=== PATIENT | male | born 1975 | race Caucasian/White ===

== ENCOUNTER 2020-06-02 08:54 | Outpatient (CLI) | payer BC, SELFPAY ==
--- NOTE | 2020-06-02 09:42 | ECG_ITS ---
[facility] Test Date: 2020-06-02 Pat Name: Neil Bah Department: Room: Gender: Male Rapid Transit Operator: : 1975 Requested By: Manish Bennett Order Number: [id number] Obie MD: Ivet Nickerson M.D. Interpretive Statements NAME OF STUDY: EXERCISE SESTAMIBI STRESS TEST EXERCISE DATA: The patient was exercised by Bryn protocol. Baseline heart rate was 81 beats per minute. Baseline blood pressure was 123/80 millimeters of mercury. Target heart rate was 175 beats per minute. Maximum heart rate achieved was 187, which was 106 % of the target heart rate. Maximum blood pressure was 159/80 millimeters of mercury. Total exercise time was 12 minutes. Maximum METs achieved was 13.5, maximum VO2 was 47.3. The reason for ending the test was maximum effort achieved. The patient complained of during the stress test, which then resolved at the end of the test. ELECTROCARDIOGRAM: BASELINE: Sinus rhythm, normal axis, interventricular conduction delay otherwise no significant ST-T changes at the baseline noted. EXERCISE: At the peak exercise level, no significant ST-T changes suggestive of ischemia noted. RECOVERY: During the recovery period, heart rate dropped appropriately. No significant ST-T changes in the recovery suggestive of ischemia noted. CONCLUSION: 1. Exercise capacity good. 2. Heart rate response was appropriate. 3. Blood pressure response was appropriate. 4. Symptoms not suggestive of ischemia. 5. Electrocardiogram portion of the stress test was not suggestive of ischemia. 6 Electronically Signed On 06-02-2020 18:59:46 CDT by Ivet Nickerson M.D. [id number]
--- NOTE | 2020-06-02 09:43 | NMCV_ITS ---
NM char perf SPECT r/s* [id number] Neil Bah Age: 45 Gender: M : 1975 Exam Date: 06/02/2020 10:42 Ordering Phys: Manish Cobb DO Technologist: PAUL Baum Exam Location: [facility] Indications: DYSPNEA ON EXERTION STRESS TEST Please see separate stress test report in [facility] for full findings IMAGE PROTOCOL Rest/Stress 1 Exercise Day Radiopharmaceutical Dose (mCi) Administration Site Administered by Rest: Tc-99m 10.9 IV PAUL Baum Sestamibi Stress:Tc-99m 32.6 IV PAUL Odonnell Sestamibi Rest: 02-Jun-2020 60 Discovery 630 Stress: 02-Jun-2020 15 Discovery 630 Radiopharmaceutical was injected at 86 % maximum heart rate. Images obtained in supine and prone position. SPECT RESULTS Technical Quality: Excellent Raw Data Analysis: Normal Image Corrections: No attenuation or motion correction applied Summed Stress Score: 2 Summed Rest Score: 6 Summed Difference Score: 0 PERFUSION FINDINGS Medium-sized area of fixed perfusion defect noted in basal distal inferior and inferoseptal wall suggestive of old myocardial infarction versus scarring. No mer-infarct ischemia noted. FUNCTIONAL RESULTS (calculated via Gated SPECT) Stress Image LV EF (%): 75 Stress EDV (mL):97 TID: 0.67 Stress ESV (mL):24 Rest Image LV EF (%): 75 FUNCTIONAL FINDINGS: There is normal left ventricular systolic function. IMPRESSIONS Medium-sized area for myocardial infarction versus scarring noted in the basal to distal inferior inferoseptal wall without mer-infarct ischemia. This study is negative for ischemia. EKG segment will be documented separately Ivet Nickerson MD (Electronically Signed) Final Date: 02 June 2020 12:37 S
[2020-06-02 09:51] VITALS: BMI 29.9
--- NOTE | 2020-06-02 10:11 | USCV_ITS ---
Neil Bah Age: 45 Gender: M : 1975 Exam Date: 06/02/2020 10:24 Ordering Phys: Manish Cobb DO Technologist: Jeniffer Mendez Exam Location: [facility] [place] Indication: DYSPNEA ON EXERTION BP: / HR: 56 Rhythm: Sinus Technical Quality: Adequate MEASUREMENTS (Male / Female) Normal Values 2D ECHO LV Diastolic Diameter PLAX 3.2 cm 4.2 - 5.9 / 3.9 - 5.3 cm LV Systolic Diameter PLAX 2.1 cm LV Chamber Size 4.2 cm IVS Diastolic Thickness 1.3 cm 0.6 - 1.0 / 0.6 - 0.9 cm IVS Systolic Thickness 1.6 cm LVPW Diastolic Thickness 2.5 cm 0.6 - 1.0 / 0.6 - 0.9 cm LVPW Systolic Thickness 2.2 cm RV Chamber Size 3.5 cm LVOT Diameter 2.1 cm LV Ejection Fraction 2D Teich 64.5 % LV Ejection Fraction MOD 2C 74.4 % LV Ejection Fraction 2C AL 75.6 % LA Diameter 3.5 cm LA Width 4.3 cm LA Height 3.7 cm RA Width 3.0 cm RA Height 3.8 cm Aorta at Sinotubular Diameter 3.2 cm M-MODE LV Diastolic Diameter MM 5.3 cm 4.2 - 5.9 / 3.9 - 5.3 cm LV Systolic Diameter MM 3.1 cm LV Ejection Fraction MM Teich 70.2 % IVS Diastolic Thickness MM 0.9 cm 0.6 - 1.0 / 0.6 - 0.9 cm IVS Systolic Thickness MM 1.3 cm LVPW Diastolic Thickness MM 0.9 cm 0.6 - 1.0 / 0.6 - 0.9 cm LVPW Systolic Thickness MM 1.3 cm Aortic Annulus Diameter 4.4 cm LA Ao Ratio MM 0.8 MV E Point Septal Separation 0.6 cm DOPPLER AV Peak Velocity 83.0 cm/s LVOT Peak Velocity 68.0 cm/s AV Area Cont Eq vti 3.1 cm squared AV Area Cont Eq pk 2.8 cm squared MV Area PHT 9.6 cm squared Mitral E to A Ratio 1.1 MV E' Velocity 12.0 cm/s Mitral E to MV E' Ratio 4.9 Mitral E to LV E' Lateral Ratio 5.3 Mitral E to LV E' Septal Ratio 4.5 TR Peak Velocity 145.0 cm/s TR Peak Gradient 8.4 mmHg TV Peak E Velocity 70.0 cm/s Right Atrial Pressure 3.0 mmHg Pulmonary Artery Systolic Pressu 11.4 mmHg PV Peak Velocity 64.0 cm/s RV Acceleration Time 0.2 s RV Ejection Time 0.4 s RV AcT/ET 0.5 FINDINGS Left Ventricle Normal left ventricular cavity size. Normal left ventricular systolic function. No regional wall motion abnormalities. Left ventricular ejection fraction is estimated at 60 %. Grade II/IV diastolic dysfunction, moderately elevated filling pressures. Right Ventricle The right ventricle is normal in size and function. Right Atrium The right atrium is normal in size. Left Atrium The left atrium is normal in size. Mitral Valve Structurally normal mitral valve without significant stenosis or prolapse. There is no mitral regurgitation. Aortic Valve Moderate aortic valve calcification. No aortic valve stenosis. Trace aortic valve regurgitation. Tricuspid Valve Structurally normal tricuspid valve without significant stenosis or regurgitation. Pulmonary artery systolic pressure is normal. Pulmonic Valve Structurally normal pulmonic valve without significant stenosis. There is no pulmonic regurgitation. Pericardium Normal pericardium without effusion. Aorta Normal ascending aorta dimension. CONCLUSIONS 1-Normal left ventricular cavity size. Normal left ventricular systolic function. No regional wall motion abnormalities. Left ventricular ejection fraction is estimated at 60 %. Grade II/IV diastolic dysfunction, moderately elevated filling pressures. 2-Moderate aortic valve calcification. No aortic valve stenosis. Trace aortic valve regurgitation. 3-Structurally normal mitral valve without significant stenosis or prolapse. There is no mitral regurgitation. 4-Structurally normal tricuspid valve without significant stenosis or regurgitation. Pulmonary artery systolic pressure is normal. 5-There is no pericardial effusion. 6-Right atrial pressure is around 5 mm of mercury. 7-There are no prior echocardiogram studies to compare. Ivet Nickerson MD (Electronically Signed) Final Date: 02 June 2020 12:47 S
[2020-06-02 12:13] VITALS: BP 146/84; PULSE 85
== END 2020-06-02 08:55 | disposition home or self-care (01) ==
PROVIDERS: PCP Internal Medicine; Visit Provider Internal Medicine
DX: R06.09 Other forms of dyspnea; I35.1 Nonrheumatic aortic (valve) insufficiency
CPT/HCPCS: 78452; 93017; 93306; A9500

== ENCOUNTER 2020-10-04 11:10 | Outpatient (CLI) | payer BC, SELFPAY ==
--- NOTE | 2020-10-04 11:17 | XR_ITS ---
WS: [id number] CHEST 2 VIEWS HISTORY: Shortness of breath COMPARISON: 11/29/2014. Lungs: Clear with no abnormality. No pleural effusion or pneumothorax. Cardiac size: Normal. Mediastinum/Aorta: Normal mediastinum. Bones: Normal. XR/XR chest 2V* [id number] IMPRESSION: Normal chest.
== END 2020-10-04 11:11 | disposition home or self-care (01) ==
PROVIDERS: PCP Internal Medicine; Visit Provider Internal Medicine Critical Care Medicine
DX: R06.02 Shortness of breath (principal)
CPT/HCPCS: 71046

== ENCOUNTER → 2020-10-10 10:21 | Outpatient (BNVA) | payer BC, SELFPAY | PROVIDERS: PCP Internal Medicine; Visit Provider Internal Medicine Critical Care Medicine | DX: Z11.52 Encounter for screening for COVID-19 (principal); I35.9 Nonrheumatic aortic valve disorder, unspecified | CPT/HCPCS: 87635 ==

== ENCOUNTER 2020-10-13 09:09 | Outpatient (CLI) | payer BC, SELFPAY ==
--- NOTE | 2020-10-13 14:19 | PFTS_ITS ---
Date of Study:10/13/20 Date of Dictation: MECHANICS: Forced vital capacity (FVC) is normal. Forced expiratory volume in one second (FEV1) is normal. FEV1/FVC is normal. FLOW VOLUME LOOP: Normal. LUNG VOLUMES: Total lung capacity (TLC) is normal. Residual volume (RV) is reduced. DIFFUSING CAPACITY FOR CARBON MONOXIDE: Normal. INTERPRETATION: The pulmonary function tests are normal. There is isolated reduction of residual volume likely secondary to an increase in expiratory reserve volume. Gas exchange (DLCO) is normal. MTDD
== END 2020-10-13 09:10 | disposition home or self-care (01) ==
PROVIDERS: PCP Internal Medicine; Visit Provider Internal Medicine Critical Care Medicine
DX: R06.02 Shortness of breath (principal)
CPT/HCPCS: 94010; 94726; 94729

== ENCOUNTER 2021-02-17 10:01 | Outpatient (CLI) | payer BC, SELFPAY ==
--- NOTE | 2021-02-18 17:59 | ONC CON_ITS ---
Dr. Estrada New Patient Note Patient: Neil Bah Unit #: [id number]: 1975 Dicatated By: Manish Estrada M.D.Date of Visit: February 17, 2021 Onc MED New Patient/Consult Referring Physician: Dr. MUNA ROSS M.D. Chief Complaint: Rectal cancer. 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 He has rheumatoid arthritis and last year he was found to have evidence of grade 2 diastolic dysfunction in the course of undergoing evaluation for exertional dyspnea. He had recently presented with rectal bleeding. It first started in November of this year. He underwent colonoscopy by Dr. Marino. I do not have that report available, it apparently showed a benign rectal polyp in a more dominant rectal polyp/tumor, confirmed on biopsy to be adenomatous with focal high-grade dysplasia. He was referred to Dr. Ross in [place]. His flexible sigmoidoscopy on 02/02/2021 showed a malignant appearing tumor on the first rectal fold spanning 40 to 50% of the circumference of the rectal wall. There was central ulceration and a crater ring noted. Ultrasound was suggestive of T3 disease and also noted was a possible extra rectal round hypodense lymph node suggesting possible lymph node involvement. Biopsy of the mass showed well differentiated adenocarcinoma. MMR studies were in progress and are not yet reported. His staging CT scans of the chest, abdomen, and pelvis on 02/02/2021 showed a 6 mm and 3 mm right upper lobe pulmonary nodules and a 5 mm left lower lobe pulmonary nodule, nonspecific, but metastatic disease was not excluded. The liver showed a 2.0 cm hypodense nodule with ill-defined margins in the anterior superior right lobe. The appearance was suspicious for metastasis. Multiple tiny hypodensities in the left and right lobes were too small to characterize. Also noted was a a 1.1 cm fluid density cyst in the left lobe. There was suspected 4.1 cm inhomogeneous mass in the posterior rectum. There were no enlarged lymph nodes identified. He is seen for further management. He has still been feeling good generally. He has good energy and he has normal activity. ECOG score is 0. His appetite comes and goes. His weight is down about 13 pounds. He does not have fever or night sweats. He does report having shortness of breath with activity. He underwent evaluation for that last year, and he was found to have evidence of grade 2 diastolic dysfunction. He has not had chest pain or other cardiac symptoms. He has had no GI complaints other than the rectal bleeding. Bladder function has been okay. He has rheumatoid arthritis which mainly affects his knees and ankles. It is generally well controlled with the Xeljanz. He has just occasional headache. He has no focal neurologic symptoms. Past Medical History: His medical history includes nxiety, depression, grade 2 diastolic dysfunction, and rheumatoid arthritis. Past Surgical History: His surgical/procedural history includes right shoulder tendon repair and tympanoplasty. Medications: buPROPion HCl ER (XL) 1 Tablet (of 300 mg) Tablet SR 24 HR Oral daily, predniSONE 1 Tablet (of 10 mg) Oral PRN, Xeljanz XR 1 Tablet (of 11 mg) Tablet SR 24 HR Oral daily Allergies: Calamine Medicated Social History: Mr. Bah is . He is a non-smoker. He does not drink alcohol. Family History: Father of pancreatic cancer at age 67. Mother still living at age 76. She has had treatment for colonic polyps and 2 of his 3 siblings have also been treated for colonic polyps. His paternal grandmother of colon cancer in his paternal grandfather had mesothelioma. His maternal grandmother is a colon cancer survivor. He has 2 children, twin daughters who are now age 17. Review Of Symptoms: Constitutional - His energy is good and he has normal activity. Appetite comes and goes. His weight is down about 13 pounds. He does not have fever or night sweats. ECOG score is 0, Eyes - No change in vision, ENMT - No hearing loss or tinnitus. No sinus congestion/drainage. No mouth sores. No sore throat or difficulty swallowing, Hematologic/Lymphatic - No abnormal bruising or bleeding, Respiratory - He has shortness of breath with activity. No cough. No pleuritic pain or hemoptysis, Cardiovascular - No angina pain. No palpitations, Gastrointestinal - No nausea or vomiting. No heartburn or acid reflux. No diarrhea or constipation. He has been having rectal bleeding, Genitourinary (M) - No dysuria or hematuria. No urinary frequency. No urgency or incontinence, Musculoskeletal - He has rheumatoid arthritis for which she is on treatment with Xeljanz. His most significant pain is in his knees and ankles, Integumentary - No skin rash or other skin changes, Neurologic - No headache or dizziness. No numbness or tingling. No other focal neurologic symptoms, Psychiatric - No anxiety. He does have a little depression. No insomnia. Vital Signs: Performed on February 17, 2021 10:27: 0, 36.67 (HIGH), 2.11 sq.m, 66 in, 97 %, 86 /min, 18 /min, 127/82 mm(hg), 98.2 F (LOW), and 227.2 lbs (HIGH). Physical Examination: Constitutional - He appears to be in good general health, Eyes - Sclerae nonicteric. Conjunctivae clear, ENMT - No lesions noted in the oral cavity, Neck - No mass or thyromegaly, Hematologic/Lymphatic - No cervical, clavicular, or axillary adenopathy, Respiratory - Lungs are clear with good air movement bilaterally, Cardiovascular - Heart rhythm is regular. There is no murmur, gallop, or rub noted, Abdomen - Soft and non-tender. Liver and spleen are not enlarged. There is no abdominal mass or ascites noted and there is no inguinal adenopathy, Back/Spine - No spine or CVA tenderness noted, Extremities - No edema. Pedal pulses are palpable bilaterally, Integumentary - No rashes. No suspicious skin lesions noted, Neurologic - No focal neurologic deficits noted. Problem List: 1. Well differentiated adenocarcinoma of the rectum. Staging is incomplete. Ultrasound was suggestive of T3, N1 disease. His staging CT scans showed a possible metastatic lesion in the right lobe of the liver. Additional lesions involving both lobes of the liver were too small to characterize and several small pulmonary nodules are also too small to characterize. 2. Rheumatoid arthritis. 3. Grade 2 diastolic dysfunction. 4. Anxiety/depression. Problems Addressed with this Encounter and Plan: 1. Patient with well differentiated adenocarcinoma of the rectum. Staging is incomplete. Ultrasound was suggestive of T3, N1 disease. His staging CT scans showed a possible metastatic lesion in the right lobe of the liver. Additional lesions involving both lobes of the liver were too small to characterize and several small pulmonary nodules were also too small to characterize. The findings on the imaging studies and the pathology results were reviewed with the patient. We discussed the clinic complications. He has rectal adenocarcinoma which is likely to be at least stage III and possibly stage IV. He does need additional staging. At a minimum I would recommend MRI of the liver and MRI of the pelvis. In any case, it is likely that he will be appropriate for total neoadjuvant therapy. However, if the liver lesion is suspicious for a single site of metastatic involvement, we will have to decide whether to biopsy prior to starting treatment or address it at the time of his surgery. I will contact Dr. Ross to discuss this so that we can agree on an overall plan of management. He also is going to require placement of a Port-A-Cath venous access device for the chemotherapy. 2. He has a significant family history for colonic polyps and a positive family history for colon cancer. The results of his MMR studies have not been been reported. He will have genetic screening as indicated. Signed By: Manish Estrada M.D. <<Signature on File>>
== END 2021-02-17 10:02 | disposition home or self-care (01) ==
LOC: ONCMED 10:02
PROVIDERS: PCP Internal Medicine; Visit Provider Internal Medicine Medical Oncology
DX: C20 Malignant neoplasm of rectum (principal); C78.7 Secondary malignant neoplasm of liver and intrahepatic bile duct; C78.01 Secondary malignant neoplasm of right lung; C78.02 Secondary malignant neoplasm of left lung; M06.9 Rheumatoid arthritis, unspecified; F41.9 Anxiety disorder, unspecified; F32.9 Major depressive disorder, single episode, unspecified; Z79.899 Other long term (current) drug therapy; Z92.21 Personal history of antineoplastic chemotherapy
CPT/HCPCS: 99205

== ENCOUNTER 2021-03-28 05:38 | Outpatient (RCR) | payer BC, SELFPAY ==
[2021-02-28 09:42] LABS: Basophils % 0.5 %; Eosinophils % 0.5 %; Hematocrit 48.7 % (42.0-52.0); Hemoglobin 16.7 g/dL (11.7-16.6); Lymphocytes # 1.3 10^3/uL (0.8-4.8); Lymphocytes % 31.8 %; Mean Corpuscular HGB Conc 34.3 g/dL (30.0-36.0); Mean Corpuscular Hemoglobin 28.2 pg (28.0-34.0); Mean Corpuscular Volume 82.1 fL (80-94); Mean Platelet Volume 9.2 fL (7.4-10.4); Monocytes # 0.3 10^3/uL (0.2-0.9); Monocytes % 7.5 %; Neutrophils # 2.38 10^3/uL (1.8-7.7); Neutrophils % 59.4 %; Nucleated Red Blood Cells % 0 %; Platelet Count 206 10^3/cmm (130-400); Red Blood Count 5.93 10^6/uL (4.1-5.3); Red Cell Distribution Width 12.3 % (12.1-15.1)
[2021-02-28 10:16] LABS: Carcinoembryonic Antigen 4.7 ng/mL (0.0-4.7)
[2021-02-28 10:27] LABS: Alanine Aminotransferase 9 U/L (0-41); Albumin Level 4.5 g/dL (3.5-5.2); Alkaline Phosphatase 79 IU/L (40-130); Anion Gap 13.4 (5-19); Aspartate Amino Transferase 12 U/L (0-40); Blood Urea Nitrogen 14 mg/dL (6-20); Calcium 8.8 mg/dL (8.5-10.5); Carbon Dioxide 27 mmol/L (22-29); Chloride 106 mmol/L (98-107); Globulin 2.2 g/dL (1.3-4.6); Glomerular Filtration Rate 91.3 mL/min (90-130); Glucose 89 mg/dL (65-115); Osmolality Calculated 294 mOsm/kg (285-295); Potassium 4.4 mmol/L (3.5-5.1); Sodium 142 mmol/L (136-145); Total Bilirubin 0.7 mg/dL (0.15-1.2); Total Protein 6.7 g/dL (6.6-8.7)
[2021-02-28] MEDS: palonosetron 0.25 mg/5 mL SDV IVP (11:22)
[2021-02-28] MEDS: dextrose 5% 250 ML 75 ML IV (11:22)
[2021-03-07 12:21] LABS: Basophils % 0.5 %; Eosinophils # 0.1 10^3/uL (0.0-0.8); Eosinophils % 1.3 %; Hematocrit 46.5 % (42.0-52.0); Hemoglobin 16.2 g/dL (11.7-16.6); Lymphocytes # 1.1 10^3/uL (0.8-4.8); Lymphocytes % 29.3 %; Mean Corpuscular HGB Conc 34.8 g/dL (30.0-36.0); Mean Corpuscular Hemoglobin 28.2 pg (28.0-34.0); Mean Platelet Volume 8.8 fL (7.4-10.4); Monocytes # 0.3 10^3/uL (0.2-0.9); Monocytes % 8.8 %; Neutrophils # 2.21 10^3/uL (1.8-7.7); Nucleated Red Blood Cells % 0 %; Platelet Count 222 10^3/cmm (130-400); Red Blood Count 5.74 10^6/uL (4.1-5.3); Red Cell Distribution Width 11.9 % (12.1-15.1); White Blood Count 3.8 10^3/uL (4.0-10.0)
[2021-03-07 12:52] LABS: Alanine Aminotransferase < 5 U/L (0-41); Albumin Level 4.2 g/dL (3.5-5.2); Alkaline Phosphatase 78 IU/L (40-130); Anion Gap 12.2 (5-19); Aspartate Amino Transferase 12 U/L (0-40); Blood Urea Nitrogen 9 mg/dL (6-20); Calcium 8.7 mg/dL (8.5-10.5); Carbon Dioxide 27 mmol/L (22-29); Chloride 104 mmol/L (98-107); Globulin 2.6 g/dL (1.3-4.6); Glomerular Filtration Rate 80.8 mL/min (90-130); Glucose 88 mg/dL (65-115); Osmolality Calculated 286 mOsm/kg (285-295); Potassium 4.2 mmol/L (3.5-5.1); Sodium 139 mmol/L (136-145); Total Bilirubin 0.4 mg/dL (0.15-1.2); Total Protein 6.8 g/dL (6.6-8.7)
[2021-03-14 08:38] LABS: Basophils % 0.7 %; Eosinophils # 0.1 10^3/uL (0.0-0.8); Eosinophils % 1.8 %; Hematocrit 44.2 % (42.0-52.0); Hemoglobin 15.1 g/dL (11.7-16.6); Lymphocytes # 1.1 10^3/uL (0.8-4.8); Lymphocytes % 26.1 %; Mean Corpuscular HGB Conc 34.2 g/dL (30.0-36.0); Mean Corpuscular Hemoglobin 27.7 pg (28.0-34.0); Mean Corpuscular Volume 81.1 fL (80-94); Monocytes # 0.5 10^3/uL (0.2-0.9); Neutrophils # 2.62 10^3/uL (1.8-7.7); Neutrophils % 60.2 %; Nucleated Red Blood Cells % 0 %; Platelet Count 185 10^3/cmm (130-400); Red Blood Count 5.45 10^6/uL (4.1-5.3); Red Cell Distribution Width 12.7 % (12.1-15.1); White Blood Count 4.4 10^3/uL (4.0-10.0)
[2021-03-14 09:08] LABS: Alanine Aminotransferase 14 U/L (0-41); Alkaline Phosphatase 75 IU/L (40-130); Anion Gap 10.1 (5-19); Aspartate Amino Transferase 12 U/L (0-40); Blood Urea Nitrogen 15 mg/dL (6-20); Calcium 8.3 mg/dL (8.5-10.5); Carbon Dioxide 28 mmol/L (22-29); Chloride 105 mmol/L (98-107); Globulin 2.2 g/dL (1.3-4.6); Glomerular Filtration Rate 65.5 mL/min (90-130); Glucose 94 mg/dL (65-115); Osmolality Calculated 289 mOsm/kg (285-295); Potassium 4.1 mmol/L (3.5-5.1); Sodium 139 mmol/L (136-145); Total Bilirubin 0.4 mg/dL (0.15-1.2); Total Protein 6.2 g/dL (6.6-8.7)
[2021-03-14] MEDS: dextrose 5% 250 ML 75 ML IV (10:19)
[2021-03-14] MEDS: palonosetron 0.25 mg/5 mL SDV IVP (10:19)
[2021-03-21 11:09] LABS: Basophils % 0.6 %; Eosinophils % 1.2 %; Hematocrit 45.7 % (42.0-52.0); Hemoglobin 15.8 g/dL (11.7-16.6); Lymphocytes # 1.3 10^3/uL (0.8-4.8); Lymphocytes % 37.6 %; Mean Corpuscular HGB Conc 34.6 g/dL (30.0-36.0); Mean Corpuscular Hemoglobin 28.2 pg (28.0-34.0); Mean Corpuscular Volume 81.5 fL (80-94); Mean Platelet Volume 9.3 fL (7.4-10.4); Monocytes # 0.3 10^3/uL (0.2-0.9); Monocytes % 9.8 %; Neutrophils # 1.69 10^3/uL (1.8-7.7); Neutrophils % 49.9 %; Nucleated Red Blood Cells % 0 %; Platelet Count 266 10^3/cmm (130-400); Red Blood Count 5.61 10^6/uL (4.1-5.3); Red Cell Distribution Width 12.4 % (12.1-15.1); White Blood Count 3.4 10^3/uL (4.0-10.0)
[2021-03-21 11:30] LABS: Alanine Aminotransferase 14 U/L (0-41); Albumin Level 4.2 g/dL (3.5-5.2); Alkaline Phosphatase 77 IU/L (40-130); Anion Gap 12.1 (5-19); Aspartate Amino Transferase 15 U/L (0-40); Blood Urea Nitrogen 16 mg/dL (6-20); Calcium 8.5 mg/dL (8.5-10.5); Carbon Dioxide 29 mmol/L (22-29); Chloride 105 mmol/L (98-107); Globulin 2.2 g/dL (1.3-4.6); Glomerular Filtration Rate 72.4 mL/min (90-130); Glucose 77 mg/dL (65-115); Osmolality Calculated 294 mOsm/kg (285-295); Potassium 4.1 mmol/L (3.5-5.1); Sodium 142 mmol/L (136-145); Total Bilirubin 0.5 mg/dL (0.15-1.2); Total Protein 6.4 g/dL (6.6-8.7)
[2021-03-28 09:05] LABS: Basophils % 0.6 %; Eosinophils # 0.1 10^3/uL (0.0-0.8); Hematocrit 46.3 % (42.0-52.0); Hemoglobin 15.6 g/dL (11.7-16.6); Lymphocytes # 1.3 10^3/uL (0.8-4.8); Lymphocytes % 26.2 %; Mean Corpuscular HGB Conc 33.7 g/dL (30.0-36.0); Mean Corpuscular Hemoglobin 27.4 pg (28.0-34.0); Mean Corpuscular Volume 81.4 fL (80-94); Mean Platelet Volume 8.9 fL (7.4-10.4); Monocytes # 0.4 10^3/uL (0.2-0.9); Monocytes % 7.6 %; Neutrophils # 3.29 10^3/uL (1.8-7.7); Neutrophils % 64.2 %; Nucleated Red Blood Cells % 0 %; Platelet Count 152 10^3/cmm (130-400); Red Blood Count 5.69 10^6/uL (4.1-5.3); Red Cell Distribution Width 13.2 % (12.1-15.1); White Blood Count 5.1 10^3/uL (4.0-10.0)
[2021-03-28 09:12] LABS: Alanine Aminotransferase 14 U/L (0-41); Alkaline Phosphatase 90 IU/L (40-130); Anion Gap 14.4 (5-19); Aspartate Amino Transferase 14 U/L (0-40); Blood Urea Nitrogen 12 mg/dL (6-20); Calcium 8.6 mg/dL (8.5-10.5); Carbon Dioxide 26 mmol/L (22-29); Chloride 106 mmol/L (98-107); Globulin 2.3 g/dL (1.3-4.6); Glomerular Filtration Rate 65.5 mL/min (90-130); Glucose 90 mg/dL (65-115); Osmolality Calculated 293 mOsm/kg (285-295); Potassium 4.4 mmol/L (3.5-5.1); Sodium 142 mmol/L (136-145); Total Bilirubin 0.6 mg/dL (0.15-1.2); Total Protein 6.3 g/dL (6.6-8.7)
[2021-03-28] MEDS: dextrose 5% 250 ML 75 ML IV (11:15)
[2021-03-28] MEDS: ondansetron 2 mg/ML SDV 2 mL 8 MG IVP (11:15)
--- NOTE | 2021-03-28 13:58 | ONC FU_ITS ---
[facility] Patient Note Patient: Neil Bah Unit #: [id number]: 1975 Dictated By: Chepe MoonDate of Visit: Mar 07, 2021 Onc MED Follow-Up/Prog Note Chief Complaint: Rectal cancer. History of Present Illness: Mr. 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 He has rheumatoid arthritis and last year he was found to have evidence of grade 2 diastolic dysfunction in the course of undergoing evaluation for exertional dyspnea. He had recently presented with rectal bleeding. It first started in November 2020. He underwent colonoscopy by Dr. Marino. It apparently showed a benign rectal polyp in a more dominant rectal polyp/tumor, confirmed on biopsy to be adenomatous with focal high-grade dysplasia. He was referred to Dr. Ross in [place]. His flexible sigmoidoscopy on 02/02/2021 showed a malignant appearing tumor on the first rectal fold spanning 40 to 50% of the circumference of the rectal wall. There was central ulceration and a crater ring noted. Ultrasound was suggestive of T3 disease and also noted was a possible extra rectal round hypodense lymph node suggesting possible lymph node involvement. Biopsy of the mass showed well differentiated adenocarcinoma. MMR studies were in progress and are not yet reported. His staging CT scans of the chest, abdomen, and pelvis on 02/02/2021 showed a 6 mm and 3 mm right upper lobe pulmonary nodules and a 5 mm left lower lobe pulmonary nodule, nonspecific, but metastatic disease was not excluded. The liver showed a 2.0 cm hypodense nodule with ill-defined margins in the anterior superior right lobe. The appearance was suspicious for metastasis. Multiple tiny hypodensities in the left and right lobes were too small to characterize. Also noted was a a 1.1 cm fluid density cyst in the left lobe. There was suspected 4.1 cm inhomogeneous mass in the posterior rectum. There were no enlarged lymph nodes identified. He was seen by Dr Estrada on for further management on February 17, 2021. Mr Bah had a right internal jugular port placed by Dr. Ross on December 25, 2020. MRI of the liver and pelvis was also requested and those results are not available at this visit. His current plan of care will be 6-8 treatments with FOLFOX then chemoradiation and then referral back to Dr. Ross for surgery. His MMR studies are still pending. Mr. Bah began his first cycle of FOLFOX on February 28, 2021. He is here today for day 8 follow-up. He states overall he is doing well. He did have a little cold-induced neuropathy around his mouth and fingertips but that has resolved. He states he did have emesis x1 on Saturday but none since then. He denies any fever or chills. He denies mouth sores, sore throat or difficulty swallowing. He has had no trouble eating and not his appetite has improved post chemo. He denies any new pain. He denies shortness of breath orthopnea. He denies any cough or hemoptysis. He states that his bowels have been normal so far. He had a little loose stool but nothing that he was worried about and that has resolved on its own as well. He denies any lower extremity edema or leg cramps. His ECOG is 0. Past Medical History: Anxiety Depression Grade 2 diastolic dysfunction Rheumatoid arthritis Past Surgical History: Right shoulder tendon repair Tympanoplasty Right internal jugular port placement???Dr. Ross/[facility] in 2020 Allergies: Calamine Medicated Medications: buPROPion HCl ER (XL) 1 Tablet (of 300 mg) Tablet SR 24 HR Oral daily predniSONE 1 Tablet (of 10 mg) Oral PRN Xeljanz XR 1 Tablet (of 11 mg) Tablet SR 24 HR Oral daily Family History: Father of pancreatic cancer at age 67. Mother still living at age 76. She has had treatment for colonic polyps and 2 of his 3 siblings have also been treated for colonic polyps. His paternal grandmother of colon cancer in his paternal grandfather had mesothelioma. His maternal grandmother is a colon cancer survivor. He has 2 children, twin daughters who are now age 17. Social History: Mr. Bah is . Mr. Bah has never smoked. He has no history of drinking. He is . He is a non-smoker. He does not drink alcohol. Review Of Symptoms: <See Above> Vital Signs: Performed on Mar 07, 2021 13:33 Height - 66.00 in Weight - 225 lbs (LOW) BSA - 2.10 sq.m BMI - 36.32 (HIGH) Temperature - 98.1 F (LOW) Pulse - 89 /min Respiration - 18 /min BP - 127/79 mm(hg) O2 Sat - 99 % Pain - 0 Fatigue - 0,0 - Fully active, able to carry on all predisease activities without restrictions. (ECOG) Physical Examination: Constitutional Alert, oriented, no acute distress. Skin pink, warm and dry. Head Normocephalic; atraumatic. Eyes Conjunctivae and sclerae are clear and without icterus. Pupils are reactive and equal. Neck Supple without masses or thyromegaly. No jugular venous distension. Hematologic/Lymphatic No petechiae or purpura. No tender or palpable lymph nodes in the cervical or supraclavicular areas. Respiratory Lungs are clear to auscultation without rhonchi or wheezing. Cardiovascular Regular rate and rhythm of heart without murmurs,clicks, gallops or rubs. Chest Chest is symmetric without chest wall deformities. Right chest wall port placement site is unremarkable. Back/Spine Non-tender to palpation. Extremities No visible deformities, no cyanosis, clubbing or edema. Musculoskeletal No tenderness or swelling, normal range of motion without obvious weakness. Integumentary No rashes or lesions. Neurologic No sensory or motor deficits, normal cerebellar function, normal gait. Psychiatric Alert and oriented times three. Coherent speech. Verbalizes understanding of our discussions today. Test performed on Feb 28, 2021 08:55 CEA 4.7 ng/mL Impression: 1. Well differentiated adenocarcinoma of the rectum. Staging is incomplete. Ultrasound was suggestive of T3, N1 disease. His staging CT scans showed a possible metastatic lesion in the right lobe of the liver. Additional lesions involving both lobes of the liver were too small to characterize and several small pulmonary nodules are also too small to characterize. 2. Rheumatoid arthritis. 3. Grade 2 diastolic dysfunction. 4. Anxiety/depression. Plan/Problems Addressed at this Visit: 1. Well differentiated adenocarcinoma of the rectum. Staging is incomplete. Ultrasound was suggestive of T3, N1 disease. His staging CT scans showed a possible metastatic lesion in the right lobe of the liver. Additional lesions involving both lobes of the liver were too small to characterize and several small pulmonary nodules were also too small to characterize. The findings on the imaging studies and the pathology results were reviewed with the patient per Dr Estraad. He has rectal adenocarcinoma which is likely to be at least stage III and possibly stage IV. He does need additional staging. Dr Estrada did recommend MRI of the liver and MRI of the pelvis and this was to be obtained per Dr Ross's office, those results are pending, He did have a port placed per Dr Ross on 02/24/2021. The current plan of care is total neoadjuvant therapy-6-8 cycles of FOLFOX, followed by chemo/radiation then possibly surgery. He began his first cycle of FOLFOX on February 28, 2021. He has tolerated it well thus far. A. Proceed with cycle 1 this is day 8. He is recovering well. B. Today's labs reviewed in detail discussed with Mr. Bah and a copy was given to him. WBC 3.8, hemoglobin 16.2, platelets 222,000, ANC is 2210. Potassium 4.2 random glucose 88 creatinine 1.0 and his LFTs are normal. C. We will plan to see him back in 1 week with CBC CMP for follow-up for consideration of cycle 2-day 1 FOLFOX. D. Mr. Bah was encouraged to contact us in the interim should questions or problems arise. 2. He has a significant family history for colonic polyps and a positive family history for colon cancer. The results of his MMR studies have not been been reported. He will have genetic screening as indicated. 3. Right internal jugular Port-A-Cath placement Dr. Ross February 24, 2021. A. He will require port flushes with access for port maintenance. Total time spent with Mr. Bah's care today regarding his review of his records, plan of care, side effect identification and management, lab review and post visit documentation was 50 minutes. Signed By: Chepe Moon-NAY, AOLONNIEP Manish Estrada MD <<Signature on File>>
--- NOTE | 2021-04-02 18:08 | ONC FU_ITS ---
[facility] Patient Note Patient: Neil Bah Unit #: [id number]: 1975 Dictated By: Chepe MoonDate of Visit: Mar 14, 2021 Onc MED Follow-Up/Prog Note Chief Complaint: Rectal cancer. History of Present Illness: Mr. 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 He has rheumatoid arthritis and last year he was found to have evidence of grade 2 diastolic dysfunction in the course of undergoing evaluation for exertional dyspnea. He had recently presented with rectal bleeding. It first started in November 2020. He underwent colonoscopy by Dr. Marino. It apparently showed a benign rectal polyp in a more dominant rectal polyp/tumor, confirmed on biopsy to be adenomatous with focal high-grade dysplasia. He was referred to Dr. Ross in [place]. His flexible sigmoidoscopy on 02/02/2021 showed a malignant appearing tumor on the first rectal fold spanning 40 to 50% of the circumference of the rectal wall. There was central ulceration and a crater ring noted. Ultrasound was suggestive of T3 disease and also noted was a possible extra rectal round hypodense lymph node suggesting possible lymph node involvement. Biopsy of the mass showed well differentiated adenocarcinoma. MMR studies were in progress and are not yet reported. His staging CT scans of the chest, abdomen, and pelvis on 02/02/2021 showed a 6 mm and 3 mm right upper lobe pulmonary nodules and a 5 mm left lower lobe pulmonary nodule, nonspecific, but metastatic disease was not excluded. The liver showed a 2.0 cm hypodense nodule with ill-defined margins in the anterior superior right lobe. The appearance was suspicious for metastasis. Multiple tiny hypodensities in the left and right lobes were too small to characterize. Also noted was a a 1.1 cm fluid density cyst in the left lobe. There was suspected 4.1 cm inhomogeneous mass in the posterior rectum. There were no enlarged lymph nodes identified. He was seen by Dr Estrada on for further management on February 17, 2021. Mr Bah had a right internal jugular port placed by Dr. Ross on December 25, 2020. MRI of the liver and pelvis was also requested and those results are not available at this visit. His current plan of care will be 6-8 treatments with FOLFOX then chemoradiation and then referral back to Dr. Ross for surgery. His MMR studies are still pending. Mr. Bah began his first cycle of FOLFOX on February 28, 2021. Mr Bah is here today for followup. He is due for cycle 2-day 1 FOLFOX. He states that he continues to do well overall. He did have a little cold-induced neuropathy around his mouth and fingertips with cycle 1 but states that that has resolved. He did have emesis 1 time on Saturday after his treatment but none since then. He remains very active. He did note that his height was incorrect on his flowsheet and that was corrected today to 75 inches. He states he has not had any mouth sores, sore throat or difficulty swallowing. He denies any fever or chills. He has had no further emesis. He has had no nausea. His cold-induced neuropathy has completely resolved. He denies any diarrhea or constipation. He has had no skin changes. His ECOG is 0. Past Medical History: Anxiety Depression Grade 2 diastolic dysfunction Rheumatoid arthritis Past Surgical History: Right shoulder tendon repair Tympanoplasty Right internal jugular port placement???Dr. Ross/[facility] in 2020 Allergies: Calamine Medicated Medications: buPROPion HCl ER (XL) 1 Tablet (of 300 mg) Tablet SR 24 HR Oral daily predniSONE 1 Tablet (of 10 mg) Oral PRN Xeljanz XR 1 Tablet (of 11 mg) Tablet SR 24 HR Oral daily Family History: Father of pancreatic cancer at age 67. Mother still living at age 76. She has had treatment for colonic polyps and 2 of his 3 siblings have also been treated for colonic polyps. His paternal grandmother of colon cancer in his paternal grandfather had mesothelioma. His maternal grandmother is a colon cancer survivor. He has 2 children, twin daughters who are now age 17. Social History: Mr. Bah is . Mr. Bah has never smoked. He has no history of drinking. He is . He is a non-smoker. He does not drink alcohol. Review Of Symptoms: <See Above> Vital Signs: Performed on Mar 14, 2021 09:27 Height - 75 in (HIGH) Weight - 229.8 lbs (HIGH) BSA - 2.33 sq.m BMI - 28.72 Temperature - 97.7 F (LOW) Pulse - 78 /min Respiration - 18 /min BP - 124/74 mm(hg) O2 Sat - 96 % Pain - 0 Fatigue - 0,0 - Fully active, able to carry on all predisease activities without restrictions. (ECOG) Physical Examination: Constitutional Alert, oriented, no acute distress. Skin pink, warm and dry. Head Normocephalic; atraumatic. Eyes Conjunctivae and sclerae are clear and without icterus. Pupils are reactive and equal. Neck Supple without masses or thyromegaly. No jugular venous distension. Hematologic/Lymphatic No petechiae or purpura. No tender or palpable lymph nodes in the cervical or supraclavicular areas. Respiratory Lungs are clear to auscultation without rhonchi or wheezing. Cardiovascular Regular rate and rhythm of heart without murmurs,clicks, gallops or rubs. Chest Chest is symmetric without chest wall deformities. Right chest wall port placement site is unremarkable. Back/Spine Non-tender to palpation. Extremities No visible deformities, no cyanosis, clubbing or edema. Musculoskeletal No tenderness or swelling, normal range of motion without obvious weakness. Integumentary No rashes or lesions. Neurologic No sensory or motor deficits, normal cerebellar function, normal gait. Psychiatric Alert and oriented times three. Coherent speech. Verbalizes understanding of our discussions today. Impression: 1. Well differentiated adenocarcinoma of the rectum. Staging is incomplete. Ultrasound was suggestive of T3, N1 disease. His staging CT scans showed a possible metastatic lesion in the right lobe of the liver. Additional lesions involving both lobes of the liver were too small to characterize and several small pulmonary nodules are also too small to characterize. 2. Rheumatoid arthritis. 3. Grade 2 diastolic dysfunction. 4. Anxiety/depression. Plan/Problems Addressed at this Visit: 1. Well differentiated adenocarcinoma of the rectum. Staging is incomplete. Ultrasound was suggestive of T3, N1 disease. His staging CT scans showed a possible metastatic lesion in the right lobe of the liver. Additional lesions involving both lobes of the liver were too small to characterize and several small pulmonary nodules were also too small to characterize. The findings on the imaging studies and the pathology results were reviewed with the patient per Dr Estrada. He has rectal adenocarcinoma which is likely to be at least stage III and possibly stage IV. He does need additional staging. Dr Estrada did recommend MRI of the liver and MRI of the pelvis and this was to be obtained per Dr Ross's office, those results are pending, He did have a port placed per Dr Ross on 02/24/2021. The current plan of care is total neoadjuvant therapy-6-8 cycles of FOLFOX, followed by chemo/radiation then possibly surgery. He began his first cycle of FOLFOX on February 28, 2021. He has tolerated it well thus far. A. Proceed with cycle 2 this is day 1. His doses will be changed today due to a high discrepancy and his initial dosing and today's. His height was corrected today from 66 inches to 75 inches. B. Today's labs reviewed in detail discussed with Mr. Bah and a copy was given to him. WBC 4.4, hemoglobin 15.1, platelets 185,000, ANC is 2620. Potassium 4.1 random glucose 94 creatinine 1.2 and his LFTs are normal. His weight is stable at 229.8. C. We will plan to see him back in 2 weeks with CBC CMP for follow-up for consideration of cycle 3-day 1 FOLFOX. He will have interim labs for follow-up of his first couple cycles of chemotherapy D. Mr. Bah was encouraged to contact us in the interim should questions or problems arise. 2. He has a significant family history for colonic polyps and a positive family history for colon cancer. The results of his MMR studies have not been been reported. He will have genetic screening as indicated. 3. Right internal jugular Port-A-Cath placement Dr. Ross February 24, 2021. A. He will require port flushes with access for port maintenance. Signed By: Chepe Moon-NAY, AOP Manish Estrada MD <<Signature on File>>
--- NOTE | 2021-04-04 14:51 | ONC FU_ITS ---
[facility] Patient Note Patient: Neil Bah Unit #: [id number]: 1975 Dictated By: Chepe MoonDate of Visit: Mar 28, 2021 Onc MED Follow-Up/Prog Note Chief Complaint: Rectal cancer. History of Present Illness: Mr. 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 He has rheumatoid arthritis and in 2019, he was found to have evidence of grade 2 diastolic dysfunction in the course of undergoing evaluation for exertional dyspnea. He had recently presented with rectal bleeding. It first started in November 2020. He underwent colonoscopy by Dr. Marino. It apparently showed a benign rectal polyp in a more dominant rectal polyp/tumor, confirmed on biopsy to be adenomatous with focal high-grade dysplasia. He was referred to Dr. Ross in [place]. His flexible sigmoidoscopy on 02/02/2021 showed a malignant appearing tumor on the first rectal fold spanning 40 to 50% of the circumference of the rectal wall. There was central ulceration and a crater ring noted. Ultrasound was suggestive of T3 disease and also noted was a possible extra rectal round hypodense lymph node suggesting possible lymph node involvement. Biopsy of the mass showed well differentiated adenocarcinoma. MMR studies were in progress and are not yet reported. His staging CT scans of the chest, abdomen, and pelvis on 02/02/2021 showed a 6 mm and 3 mm right upper lobe pulmonary nodules and a 5 mm left lower lobe pulmonary nodule, nonspecific, but metastatic disease was not excluded. The liver showed a 2.0 cm hypodense nodule with ill-defined margins in the anterior superior right lobe. The appearance was suspicious for metastasis. Multiple tiny hypodensities in the left and right lobes were too small to characterize. Also noted was a a 1.1 cm fluid density cyst in the left lobe. There was suspected 4.1 cm inhomogeneous mass in the posterior rectum. There were no enlarged lymph nodes identified. He was seen by Dr Estrada on for further management on February 17, 2021. Mr Bah had a right internal jugular port placed by Dr. Ross on December 25, 2020. MRI of the liver and pelvis was also requested and those results are not available at this visit. His current plan of care will be 6-8 treatments with FOLFOX then chemoradiation and then referral back to Dr. Ross for surgery. His MMR studies are still pending. Mr. Bah began his first cycle of FOLFOX on February 28, 2021. He had cycle 2 FOLFOX on March 14, 2021. His dose was adjusted due to a height discrepancy. The new dose was actually increased compared to cycle 1. Mr Bah is here today for followup. He is due for cycle 3-day 1 FOLFOX. He states that he continues to do well overall. He did have a little more cold-induced neuropathy around his mouth and fingertips with cycle 2 but states that that has completely resolved. He states that he did have a headache after his treatment. He states he was not sure if it was due to a slightly increased dose or the antiemetics or just situational. The headache began Saturday night and lasted through morning after treatment. He also had 2 days of diarrhea the week following his chemotherapy. He states it may have been something that he ate. He states it was nothing excessive and was managed with [id number] Imodium as needed. He has had some leg cramps off and on for the last couple of days. He states he may not been drinking enough water. He is still working and remains active. He works at the [employer]. He denies any fever or chills. He denies any mouth sores, sore throat or difficulty swallowing. He has had no skin rashes or skin changes. He denies any peeling or lesions on the skin. He states his diet is relatively good. He has had some slight taste changes but nothing that has affected his ability to eat at this point. He denies any pain. He denies any persistent neuropathy symptoms. 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 He did tolerate the dose adjusted doses (with slightly higher dosing due to a height discrepancy in his chart) with cycle 2 well. His ECOG is 0. Past Medical History: Anxiety Depression Grade 2 diastolic dysfunction Rheumatoid arthritis Past Surgical History: Right shoulder tendon repair Tympanoplasty Right internal jugular port placement???Dr. Ross/[facility] in 2020 Allergies: Calamine Medicated Medications: buPROPion HCl ER (XL) 1 Tablet (of 300 mg) Tablet SR 24 HR Oral daily predniSONE 1 Tablet (of 10 mg) Oral PRN Xeljanz XR 1 Tablet (of 11 mg) Tablet SR 24 HR Oral daily Family History: Father of pancreatic cancer at age 67. Mother still living at age 76. She has had treatment for colonic polyps and 2 of his 3 siblings have also been treated for colonic polyps. His paternal grandmother of colon cancer in his paternal grandfather had mesothelioma. His maternal grandmother is a colon cancer survivor. He has 2 children, twin daughters who are now age 17. Social History: Mr. Bah is . Mr. Bah has never smoked. He has no history of drinking. He is . He is a non-smoker. He does not drink alcohol. Review Of Symptoms: <See Above> Vital Signs: Performed on Mar 28, 2021 10:36 Height - 75.00 in Weight - 233.2 lbs (HIGH) BSA - 2.34 sq.m BMI - 29.15 Temperature - 97.1 F (LOW) Pulse - 94 /min Respiration - 18 /min BP - 118/70 mm(hg) O2 Sat - 96 % Pain - 0 Fatigue - 0,0 - Fully active, able to carry on all predisease activities without restrictions. (ECOG) Physical Examination: Constitutional Alert, oriented, no acute distress. Skin pink, warm and dry. Head Normocephalic; atraumatic. Eyes Conjunctivae and sclerae are clear and without icterus. Pupils are reactive and equal. Neck Supple without masses or thyromegaly. No jugular venous distension. Hematologic/Lymphatic No petechiae or purpura. No tender or palpable lymph nodes in the cervical or supraclavicular areas. Respiratory Lungs are clear to auscultation without rhonchi or wheezing. Cardiovascular Regular rate and rhythm of heart without murmurs,clicks, gallops or rubs. Chest Chest is symmetric without chest wall deformities. Right chest wall port placement site is unremarkable. Back/Spine Non-tender to palpation. Extremities No visible deformities, no cyanosis, clubbing or edema. Musculoskeletal No tenderness or swelling, normal range of motion without obvious weakness. Integumentary No rashes or lesions. Neurologic No sensory or motor deficits, normal cerebellar function, normal gait. Psychiatric Alert and oriented times three. Coherent speech. Verbalizes understanding of our discussions today. Laboratory:Test performed on Mar 28, 2021 08:35 Sodium 142 mmol/L Potassium 4.4 mmol/L Chloride 106 mmol/L CO2 26 mmol/L Anion Gap 14.4 BUN 12 mg/dL Creatinine 1.2 mg/dL Cr Clearance (Est) 114.6100 mL/min eGFR 65.5 mL/min Glucose 90 mg/dL Osmolality - Calculated 293 mOsm/kg Calcium 8.6 mg/dL Protein, Total 6.3 g/dL Albumin 4.0 g/dL Globulin 2.3 g/dL Bilirubin, Total 0.6 mg/dL ALT (SGPT) 14 U/L AST (SGOT) 14 U/L Alkaline Phosphatase 90 IU/L WBC 5.1 10 3/uL RBC 5.69 10 6/uL HGB 15.6 g/dL HCT 46.3 % MCV 81.4 fL MCH 27.4 pg MCHC 33.7 g/dL RDW 13.2 % Platelet Count 152 10 3/cmm MPV 8.9 fL Neutrophils 3.29 10 3/uL Lymphocytes 1.3 10 3/uL Monocytes 0.4 10 3/uL Eosinophils 0.1 10 3/uL Basophils 0.0 10 3/uL Neutrophil % 64.2 % Lymphocyte % 26.2 % Monocyte % 7.6 % Eosinophil % 1.0 % Basophils % 0.6 % NRBC % 0 % Test performed on Feb 28, 2021 08:55 CEA 4.7 ng/mL Impression: 1. Well differentiated adenocarcinoma of the rectum. Staging is incomplete. Ultrasound was suggestive of T3, N1 disease. His staging CT scans showed a possible metastatic lesion in the right lobe of the liver. Additional lesions involving both lobes of the liver were too small to characterize and several small pulmonary nodules are also too small to characterize. 2. Rheumatoid arthritis. 3. Grade 2 diastolic dysfunction. 4. Anxiety/depression. Plan/Problems Addressed at this Visit: 1. Well differentiated adenocarcinoma of the rectum. Staging is incomplete. Ultrasound was suggestive of T3, N1 disease. His staging CT scans showed a possible metastatic lesion in the right lobe of the liver. Additional lesions involving both lobes of the liver were too small to characterize and several small pulmonary nodules were also too small to characterize. The findings on the imaging studies and the pathology results were reviewed with the patient per Dr Estrada. He has rectal adenocarcinoma which is likely to be at least stage III and possibly stage IV. He does need additional staging. Dr Estrada did recommend MRI of the liver and MRI of the pelvis and this was to be obtained per Dr Ross's office, those results are pending, He did have a port placed per Dr Ross on 02/24/2021. The current plan of care is total neoadjuvant therapy-6-8 cycles of FOLFOX, followed by chemo/radiation then restaging imaging with MRI pelvis/liver and then possibly surgery. He began his first cycle of FOLFOX on February 28, 2021. He has tolerated it well thus far. A. Proceed with cycle 3 this is day 1. His doses will be remain the same as cycle 2. B. Today's labs reviewed in detail discussed with Mr. Bah and a copy was given to him. WBC 5.1, hemoglobin 15.6, platelets 152,000, ANC is 3290. Potassium 4.4 random glucose is 90 creatinine 1.2 albumin is 4.0 LFTs are normal. His weight today is 233.2. C. I recommended that he try 1 L normal saline hydration with his pump removal of the pump later this week. 2. He has a significant family history for colonic polyps and a positive family history for colon cancer. He will have genetic screening as indicated. A. Mismatch repair analysis (IHC) from [facility] lab collected on 02/02/2021 reports: MLH1 M1 intact expression MSH2 [id number] intact expression MSH6 SP93 intact expression PMS2 A16-4 intact expression 3. Right internal jugular Port-A-Cath placement Dr. Ross February 24, 2021. A. He will require port flushes with access for port maintenance. 4. Followup Plan A. We will plan to see him back in 2 weeks with CBC CMP for follow-up for consideration of cycle 4-day 1 FOLFOX. B. Mr. Bah was encouraged to contact us in the interim should questions or problems arise. Signed By: Chepe Moon-, CNP Manish Estrada MD <<Signature on File>>
== END 2021-03-29 23:59 | disposition home or self-care (01) ==
LOC: ONCMED 05:38
PROVIDERS: Internal Medicine Medical Oncology; PCP Internal Medicine; Visit Provider Nurse Practitioner
DX: Z51.11 Encounter for antineoplastic chemotherapy (principal); C20 Malignant neoplasm of rectum; C78.7 Secondary malignant neoplasm of liver and intrahepatic bile duct; F41.9 Anxiety disorder, unspecified; F32.9 Major depressive disorder, single episode, unspecified; M06.9 Rheumatoid arthritis, unspecified; I51.89 Other ill-defined heart diseases; Z79.899 Other long term (current) drug therapy
CPT/HCPCS: 36415; 36591; 80053; 82378; 85025; 96367; 96368; 96375; 96413; 96415; 96416; 96523; 99214; 99215; J0640; J1100; J2405; J2469; J9190; J9263

== ENCOUNTER 2021-04-26 05:47 | Outpatient (RCR) | payer BC, SELFPAY ==
[2021-03-30] MEDS: sodium chloride 0.9% 1,000 ML 999 ML IV (14:03)
[2021-04-11 08:26] LABS: Basophils % 0.9 %; Eosinophils % 0.9 %; Hematocrit 44.2 % (42.0-52.0); Hemoglobin 15.1 g/dL (11.7-16.6); Lymphocytes # 1.3 10^3/uL (0.8-4.8); Lymphocytes % 28.9 %; Mean Corpuscular HGB Conc 34.2 g/dL (30.0-36.0); Mean Corpuscular Hemoglobin 27.4 pg (28.0-34.0); Mean Corpuscular Volume 80.1 fL (80-94); Mean Platelet Volume 8.8 fL (7.4-10.4); Monocytes # 0.4 10^3/uL (0.2-0.9); Monocytes % 7.8 %; Neutrophils # 2.81 10^3/uL (1.8-7.7); Neutrophils % 61.1 %; Nucleated Red Blood Cells % 0 %; Platelet Count 154 10^3/cmm (130-400); Red Blood Count 5.52 10^6/uL (4.1-5.3); White Blood Count 4.6 10^3/uL (4.0-10.0)
[2021-04-11 08:57] LABS: Carcinoembryonic Antigen 3.1 ng/mL (0.0-4.7)
[2021-04-11 09:08] LABS: Alanine Aminotransferase 28 U/L (0-41); Albumin Level 3.8 g/dL (3.5-5.2); Alkaline Phosphatase 106 IU/L (40-130); Aspartate Amino Transferase 28 U/L (0-40); Blood Urea Nitrogen 11 mg/dL (6-20); Calcium 8.8 mg/dL (8.5-10.5); Carbon Dioxide 28 mmol/L (22-29); Chloride 106 mmol/L (98-107); Globulin 2.6 g/dL (1.3-4.6); Glomerular Filtration Rate 65.5 mL/min (90-130); Glucose 82 mg/dL (65-115); Osmolality Calculated 290 mOsm/kg (285-295); Sodium 141 mmol/L (136-145); Total Bilirubin 0.5 mg/dL (0.15-1.2); Total Protein 6.4 g/dL (6.6-8.7)
[2021-04-11] MEDS: ondansetron 2 mg/ML SDV 2 mL 8 MG IV (09:55)
[2021-04-11] MEDS: dextrose 5% 250 ML 75 ML IV (09:57)
--- NOTE | 2021-04-11 10:48 | ONC FU_ITS ---
Dr. Estrada Patient Follow-Up Note Patient: Neil Bah Unit #: [id number]: 1975 Dicatated By: Manish Estrada M.D.Date of Visit:Apr 11, 2021 Onc Med Follow-up/Prog Note Chief Complaint: Rectal cancer. History of Present Illness: This is a 45-year-old man with well differentiated adenocarcinoma of the rectum, by clinical evaluation stage at least T3, N1, MSI stable. He has rheumatoid arthritis and last year he was found to have evidence of grade 2 diastolic dysfunction in the course of undergoing evaluation for exertional dyspnea. He had onset of rectal bleeding in November of this year. He underwent colonoscopy by Dr. Marino which apparently showed a benign rectal polyp and a more dominant rectal polyp/tumor, confirmed on biopsy to be adenomatous with focal high-grade dysplasia. He was referred to Dr. Ross in [place]. His flexible sigmoidoscopy on 02/02/2021 showed a malignant appearing tumor on the first rectal fold spanning 40 to 50% of the circumference of the rectal wall. There was central ulceration and a crater ring noted. Ultrasound was suggestive of T3 disease and also noted was a possible extra rectal round hypodense lymph node suggesting possible lymph node involvement. Biopsy of the mass showed well differentiated adenocarcinoma. Mismatch repair analysis by IHC showed intact expression of MMR proteins. His staging CT scans of the chest, abdomen, and pelvis on 02/02/2021 showed a 6 mm and 3 mm right upper lobe pulmonary nodules and a 5 mm left lower lobe pulmonary nodule, nonspecific, but metastatic disease was not excluded. The liver showed a 2.0 cm hypodense nodule with ill-defined margins in the anterior superior right lobe. The appearance was suspicious for metastasis. Multiple tiny hypodensities in the left and right lobes were too small to characterize. Also noted was a a 1.1 cm fluid density cyst in the left lobe. There was suspected 4.1 cm inhomogeneous mass in the posterior rectum. There were no enlarged lymph nodes identified. I had seen him initially on 02/17/2021. With his disease being at least stage III, he was recommended to proceed with total neoadjuvant therapy. His medical history is otherwise significant for rheumatoid arthritis, for which he has been on treatment with Xeljanz. During the course of evaluation for exertional dyspnea, he was found to have evidence of grade 2 diastolic dysfunction. He has had no other known cardiac disease. He also has anxiety/depression. He is a non-smoker. He has a positive family history for colonic polyps and for colon cancer. INTERIM HISTORY: He began cycle 1 of neoadjuvant chemotherapy with modified FOLFOX on 02/28/2021. He tolerated it well and he continued with cycle 2 on 03/14/2021 and with cycle 3 on 03/28/2021. He is seen for a scheduled visit. He is still feeling good generally, though he has been more tired following his last treatment. He is still working and he still has normal activity. ECOG score is 0. His appetite was down for a few days after treatment. He also noted a little more muscle tenseness and he noticed that his knees and ankles hurt more. He has not had fever or night sweats. He has not had soreness in the mouth or throat. He has no shortness of breath, cough, or chest pain. He has no GI/ complaints. Bowel function has been normal, and he has had no further bleeding. He does not complain of headache. He has been a little lightheaded at times. He had some numbness/tingling in his fingertips and also in his mouth with cold exposure. It lasted a little more than a week, but it has now resolved. Medications: buPROPion HCl ER (XL) 1 Tablet (of 300 mg) Tablet SR 24 HR Oral daily, predniSONE 1 Tablet (of 10 mg) Oral PRN, Xeljanz XR 1 Tablet (of 11 mg) Tablet SR 24 HR Oral daily Allergies: Calamine Medicated Vital Signs: Performed on Apr 11, 2021 09:53 Height - 75.00 in Weight - 229.6 lbs (LOW) BSA - 2.33 sq.m BMI - 28.70 Temperature - 97.0 F (LOW) Pulse - 82 /min Respiration - 18 /min BP - 131/81 mm(hg) O2 Sat - 98 % Pain - 0 Fatigue - 2 Physical Examination: Constitutional - He looks good generally, Eyes - Sclerae nonicteric. Conjunctivae clear, ENMT - No lesions noted in the oral cavity, Hematologic/Lymphatic - No cervical, clavicular, or axillary adenopathy, Respiratory - Lungs are clear with good air movement bilaterally, Cardiovascular - Heart rhythm is regular. There is no murmur, gallop, or rub noted, Abdomen - Soft. Liver and spleen are not enlarged. There is no abdominal mass or ascites noted and there is no inguinal adenopathy, Extremities - No edema, Neurologic - No focal neurologic deficits noted. Lab/Imaging: Test performed on Apr 11, 2021 08:09 Sodium 141 mmol/L Potassium 4.0 mmol/L Chloride 106 mmol/L CO2 28 mmol/L Anion Gap 11.0 BUN 11 mg/dL Creatinine 1.2 mg/dL Cr Clearance (Est) 114.6100 mL/min eGFR 65.5 mL/min Glucose 82 mg/dL Osmolality - Calculated 290 mOsm/kg Calcium 8.8 mg/dL Protein, Total 6.4 g/dL Albumin 3.8 g/dL Globulin 2.6 g/dL Bilirubin, Total 0.5 mg/dL ALT (SGPT) 28 U/L AST (SGOT) 28 U/L Alkaline Phosphatase 106 IU/L WBC 4.6 10 3/uL RBC 5.52 10 6/uL HGB 15.1 g/dL HCT 44.2 % MCV 80.1 fL MCH 27.4 pg MCHC 34.2 g/dL RDW 13.0 % Platelet Count 154 10 3/cmm MPV 8.8 fL Neutrophils 2.81 10 3/uL Lymphocytes 1.3 10 3/uL Monocytes 0.4 10 3/uL Eosinophils 0.0 10 3/uL Basophils 0.0 10 3/uL Neutrophil % 61.1 % Lymphocyte % 28.9 % Monocyte % 7.8 % Eosinophil % 0.9 % Basophils % 0.9 % NRBC % 0 % CEA 3.1 ng/mL Problem List: 1. Well differentiated adenocarcinoma of the rectum, by clinical evaluation stage at least T3, N1, MSI stable. 2. Rheumatoid arthritis. 3. Grade 2 diastolic dysfunction. 4. Anxiety/depression. Problems Addressed with this Encounter and Plan: Patient with well differentiated adenocarcinoma of the rectum. His mismatch repair analysis showed intact expression of mismatch repair proteins. By ultrasound his disease was stage at least T3, N1. His staging CT scans also showed a possible metastatic lesion in the right lobe of the liver. Additional lesions involving both lobes of the liver were too small to characterize and several small pulmonary nodules were also too small to characterize. With those findings he was recommended to undergo total neoadjuvant therapy. He has now completed 3 cycles of neoadjuvant chemotherapy with modified FOLFOX. Thus far he has tolerated it extremely well. Side effects have been limited to mild fatigue and mild neuropathy. Subjectively he does appear to be showing improvement since starting chemotherapy, and there has been some decline in his CEA level. He will continue now with cycle 4 of modified FOLFOX. The dosages remain the same. He returns in 2 weeks. Signed By: Manish Estrada M.D. <<Signature on File>>
[2021-04-24 09:34] LABS: Basophils % 0.5 %; Eosinophils % 0.8 %; Hematocrit 45.1 % (42.0-52.0); Hemoglobin 15.2 g/dL (11.7-16.6); Lymphocytes # 1.4 10^3/uL (0.8-4.8); Lymphocytes % 36.8 %; Mean Corpuscular HGB Conc 33.7 g/dL (30.0-36.0); Mean Corpuscular Hemoglobin 27.3 pg (28.0-34.0); Mean Platelet Volume 9.5 fL (7.4-10.4); Monocytes # 0.4 10^3/uL (0.2-0.9); Neutrophils # 1.96 10^3/uL (1.8-7.7); Neutrophils % 51.6 %; Nucleated Red Blood Cells % 0 %; Platelet Count 140 10^3/cmm (130-400); Red Blood Count 5.57 10^6/uL (4.1-5.3); Red Cell Distribution Width 14.1 % (12.1-15.1); White Blood Count 3.8 10^3/uL (4.0-10.0)
[2021-04-24 10:00] LABS: Alanine Aminotransferase 114 U/L (0-41); Alkaline Phosphatase 88 IU/L (40-130); Anion Gap 13.2 (5-19); Aspartate Amino Transferase 75 U/L (0-40); Blood Urea Nitrogen 14 mg/dL (6-20); Calcium 8.6 mg/dL (8.5-10.5); Carbon Dioxide 26 mmol/L (22-29); Chloride 105 mmol/L (98-107); Globulin 2.5 g/dL (1.3-4.6); Glomerular Filtration Rate 65.5 mL/min (90-130); Glucose 88 mg/dL (65-115); Osmolality Calculated 290 mOsm/kg (285-295); Potassium 4.2 mmol/L (3.5-5.1); Sodium 140 mmol/L (136-145); Total Bilirubin 0.5 mg/dL (0.15-1.2); Total Protein 6.5 g/dL (6.6-8.7)
[2021-04-24] MEDS: ondansetron 2 mg/ML SDV 2 mL 8 MG IVP (11:51)
[2021-04-24] MEDS: dextrose 5% 250 ML 75 ML IV (11:51)
--- NOTE | 2021-04-24 15:38 | ONC FU_ITS ---
Dr. Estrada Patient Follow-Up Note Patient: Neil Bah Unit #: [id number]: [id number] Dicatated By: Manish Estrada M.D.Date of Visit:Apr 24, 2021 Onc Med Follow-up/Prog Note Chief Complaint: Rectal cancer. History of Present Illness: This is a 45-year-old man with well differentiated adenocarcinoma of the rectum, by clinical evaluation stage at least T3, N1, MSI stable. He has rheumatoid arthritis and last year he was found to have evidence of grade 2 diastolic dysfunction in the course of undergoing evaluation for exertional dyspnea. He had onset of rectal bleeding in November of this year. He underwent colonoscopy by Dr. Marino which apparently showed a benign rectal polyp and a more dominant rectal polyp/tumor, confirmed on biopsy to be adenomatous with focal high-grade dysplasia. He was referred to Dr. Ross in [place]. His flexible sigmoidoscopy on 02/02/2021 showed a malignant appearing tumor on the first rectal fold spanning 40 to 50% of the circumference of the rectal wall. There was central ulceration and a crater ring noted. Ultrasound was suggestive of T3 disease and also noted was a possible extra rectal round hypodense lymph node suggesting possible lymph node involvement. Biopsy of the mass showed well differentiated adenocarcinoma. Mismatch repair analysis by IHC showed intact expression of MMR proteins. His staging CT scans of the chest, abdomen, and pelvis on 02/02/2021 showed a 6 mm and 3 mm right upper lobe pulmonary nodules and a 5 mm left lower lobe pulmonary nodule, nonspecific, but metastatic disease was not excluded. The liver showed a 2.0 cm hypodense nodule with ill-defined margins in the anterior superior right lobe. The appearance was suspicious for metastasis. Multiple tiny hypodensities in the left and right lobes were too small to characterize. Also noted was a a 1.1 cm fluid density cyst in the left lobe. There was suspected 4.1 cm inhomogeneous mass in the posterior rectum. There were no enlarged lymph nodes identified. I had seen him initially on 02/17/2021. With his disease being at least stage III, he was recommended to proceed with total neoadjuvant therapy. His medical history is otherwise significant for rheumatoid arthritis, for which he has been on treatment with Xeljanz. During the course of evaluation for exertional dyspnea, he was found to have evidence of grade 2 diastolic dysfunction. He has had no other known cardiac disease. He also has anxiety/depression. He is a non-smoker. He has a positive family history for colonic polyps and for colon cancer. INTERIM HISTORY: He began cycle 1 of neoadjuvant chemotherapy with modified FOLFOX on 02/28/2021. He tolerated it well and he continued with cycle 2 on 03/14/2021, with cycle 3 on 03/28/2021, and with cycle 4 on 04/11/2021. He is seen for a follow-up visit. He has been feeling pretty good generally. He does notice that he tires more easily, but he has normal activity. ECOG score is 0. His appetite is good. He has no fever or night sweats. He continues to have cold sensitivity for about a week or so after his treatment. With his last cycle he also developed some transient numbness in his left index finger. His mouth occasionally feels a little sore. He has no shortness of breath, cough, or chest pain. He has not had any nausea with the chemotherapy, and he has had no diarrhea. He has no complaints. He has had a little bit of back pain. He has had some migraine headaches. Medications: buPROPion HCl ER (XL) 1 Tablet (of 300 mg) Tablet SR 24 HR Oral daily, predniSONE 1 Tablet (of 10 mg) Oral PRN, Xeljanz XR 1 Tablet (of 11 mg) Tablet SR 24 HR Oral daily Allergies: Calamine Medicated Vital Signs: Performed on Apr 24, 2021 11:09 Height - 75.00 in Weight - 226.2 lbs (LOW) BSA - 2.31 sq.m BMI - 28.27 Temperature - 97.6 F (LOW) Pulse - 79 /min Respiration - 18 /min BP - 128/81 mm(hg) O2 Sat - 97 % Pain - 0 Physical Examination: Constitutional - He looks good generally, Eyes - Sclerae nonicteric. Conjunctivae clear, ENMT - No lesions noted in the oral cavity, Hematologic/Lymphatic - No cervical, clavicular, or axillary adenopathy, Respiratory - Lungs are clear with good air movement bilaterally, Cardiovascular - Heart rhythm is regular. There is no murmur, gallop, or rub noted, Abdomen - Soft. Liver and spleen are not enlarged. There is no abdominal mass or ascites noted and there is no inguinal adenopathy, Extremities - No edema, Neurologic - No focal neurologic deficits noted. Lab/Imaging: Test performed on Apr 24, 2021 09:05 Sodium 140 mmol/L Potassium 4.2 mmol/L Chloride 105 mmol/L CO2 26 mmol/L Anion Gap 13.2 BUN 14 mg/dL Creatinine 1.2 mg/dL Cr Clearance (Est) 114.6100 mL/min eGFR 65.5 mL/min Glucose 88 mg/dL Osmolality - Calculated 290 mOsm/kg Calcium 8.6 mg/dL Protein, Total 6.5 g/dL Albumin 4.0 g/dL Globulin 2.5 g/dL Bilirubin, Total 0.5 mg/dL ALT (SGPT) 114 U/L AST (SGOT) 75 U/L Alkaline Phosphatase 88 IU/L WBC 3.8 10 3/uL RBC 5.57 10 6/uL HGB 15.2 g/dL HCT 45.1 % MCV 81.0 fL MCH 27.3 pg MCHC 33.7 g/dL RDW 14.1 % Platelet Count 140 10 3/cmm MPV 9.5 fL Neutrophils 1.96 10 3/uL Lymphocytes 1.4 10 3/uL Monocytes 0.4 10 3/uL Eosinophils 0.0 10 3/uL Basophils 0.0 10 3/uL Neutrophil % 51.6 % Lymphocyte % 36.8 % Monocyte % 10.0 % Eosinophil % 0.8 % Basophils % 0.5 % NRBC % 0 % Problem List: 1. Well differentiated adenocarcinoma of the rectum, by clinical evaluation stage at least T3, N1, MSI stable. 2. Rheumatoid arthritis. 3. Grade 2 diastolic dysfunction. 4. Anxiety/depression. Problems Addressed with this Encounter and Plan: Patient with well differentiated adenocarcinoma of the rectum. His mismatch repair analysis showed intact expression of mismatch repair proteins. By ultrasound his disease was stage at least T3, N1. His staging CT scans also showed a possible metastatic lesion in the right lobe of the liver. Additional lesions involving both lobes of the liver were too small to characterize and several small pulmonary nodules were also too small to characterize. With those findings he was recommended to undergo total neoadjuvant therapy. He has now completed 4 cycles of neoadjuvant chemotherapy with modified FOLFOX. Thus far he has tolerated it extremely well. Side effects have been limited to mild fatigue and mild neuropathy. He will proceed now with cycle 5 of modified FOLFOX. The dosages remain the same. He returns in 2 weeks. Signed By: Manish Estrada M.D. <<Signature on File>>
== END 2021-04-29 23:59 | disposition home or self-care (01) ==
LOC: ONCMED 05:47
PROVIDERS: PCP Internal Medicine; Visit Provider Internal Medicine Medical Oncology
DX: Z51.11 Encounter for antineoplastic chemotherapy (principal); C20 Malignant neoplasm of rectum; M06.9 Rheumatoid arthritis, unspecified; I51.89 Other ill-defined heart diseases; F41.9 Anxiety disorder, unspecified; F32.9 Major depressive disorder, single episode, unspecified; Z79.899 Other long term (current) drug therapy
CPT/HCPCS: 36415; 80053; 82378; 85025; 96360; 96367; 96368; 96375; 96413; 96415; 96416; 96523; 99214; J0640; J1100; J2405; J7030; J9190; J9263

== ENCOUNTER 2021-05-26 05:38 | Outpatient (RCR) | payer BC, SELFPAY ==
[2021-05-09 08:33] LABS: Basophils % 0.8 %; Eosinophils % 1.1 %; Hematocrit 43.4 % (42.0-52.0); Hemoglobin 14.5 g/dL (11.7-16.6); Lymphocytes % 27.6 %; Mean Corpuscular HGB Conc 33.4 g/dL (30.0-36.0); Mean Corpuscular Hemoglobin 27.6 pg (28.0-34.0); Mean Corpuscular Volume 82.5 fL (80-94); Mean Platelet Volume 9.5 fL (7.4-10.4); Monocytes # 0.4 10^3/uL (0.2-0.9); Monocytes % 9.8 %; Neutrophils # 2.27 10^3/uL (1.8-7.7); Neutrophils % 60.2 %; Nucleated Red Blood Cells % 0 %; Platelet Count 97 10^3/cmm (130-400); Red Blood Count 5.26 10^6/uL (4.1-5.3); Red Cell Distribution Width 14.7 % (12.1-15.1); White Blood Count 3.8 10^3/uL (4.0-10.0)
[2021-05-09 08:49] LABS: Alanine Aminotransferase 149 U/L (0-41); Alkaline Phosphatase 98 IU/L (40-130); Anion Gap 10.3 (5-19); Aspartate Amino Transferase 98 U/L (0-40); Blood Urea Nitrogen 11 mg/dL (6-20); Calcium 8.8 mg/dL (8.5-10.5); Carbon Dioxide 27 mmol/L (22-29); Chloride 107 mmol/L (98-107); Globulin 2.7 g/dL (1.3-4.6); Glomerular Filtration Rate 65.5 mL/min (90-130); Glucose 84 mg/dL (65-115); Osmolality Calculated 289 mOsm/kg (285-295); Potassium 4.3 mmol/L (3.5-5.1); Sodium 140 mmol/L (136-145); Total Bilirubin 0.5 mg/dL (0.15-1.2); Total Protein 6.7 g/dL (6.6-8.7)
[2021-05-09] MEDS: dextrose 5% 250 ML 75 ML IV (09:37)
[2021-05-09] MEDS: ondansetron 2 mg/ML SDV 2 mL 8 MG IVP (09:37)
[2021-05-09 10:29] LABS: Carcinoembryonic Antigen 3.8 ng/mL (0.0-4.7)
--- NOTE | 2021-05-09 18:11 | ONC FU_ITS ---
Dr. Estrada Patient Follow-Up Note Patient: Neil Bah Unit #: [id number]: 1975 Dicatated By: Manish Estrada M.D.Date of Visit:May 09, 2021 Onc Med Follow-up/Prog Note Chief Complaint: Rectal cancer. History of Present Illness: This is a 45-year-old man with well differentiated adenocarcinoma of the rectum, by clinical evaluation stage at least T3, N1, MSI stable. He has rheumatoid arthritis and last year he was found to have evidence of grade 2 diastolic dysfunction in the course of undergoing evaluation for exertional dyspnea. He had onset of rectal bleeding in November of this year. He underwent colonoscopy by Dr. Marino which apparently showed a benign rectal polyp and a more dominant rectal polyp/tumor, confirmed on biopsy to be adenomatous with focal high-grade dysplasia. He was referred to Dr. Rsos in [place]. His flexible sigmoidoscopy on 02/02/2021 showed a malignant appearing tumor on the first rectal fold spanning 40 to 50% of the circumference of the rectal wall. There was central ulceration and a crater ring noted. Ultrasound was suggestive of T3 disease and also noted was a possible extra rectal round hypodense lymph node suggesting possible lymph node involvement. Biopsy of the mass showed well differentiated adenocarcinoma. Mismatch repair analysis by IHC showed intact expression of MMR proteins. His staging CT scans of the chest, abdomen, and pelvis on 02/02/2021 showed a 6 mm and 3 mm right upper lobe pulmonary nodules and a 5 mm left lower lobe pulmonary nodule, nonspecific, but metastatic disease was not excluded. The liver showed a 2.0 cm hypodense nodule with ill-defined margins in the anterior superior right lobe. The appearance was suspicious for metastasis. Multiple tiny hypodensities in the left and right lobes were too small to characterize. Also noted was a a 1.1 cm fluid density cyst in the left lobe. There was suspected 4.1 cm inhomogeneous mass in the posterior rectum. There were no enlarged lymph nodes identified. I had seen him initially on 02/17/2021. With his disease being at least stage III, he was recommended to proceed with total neoadjuvant therapy. His medical history is otherwise significant for rheumatoid arthritis, for which he has been on treatment with Xeljanz. During the course of evaluation for exertional dyspnea, he was found to have evidence of grade 2 diastolic dysfunction. He has had no other known cardiac disease. He also has anxiety/depression. He is a non-smoker. He has a positive family history for colonic polyps and for colon cancer. INTERIM HISTORY: He began cycle 1 of neoadjuvant chemotherapy with modified FOLFOX on 02/28/2021. He tolerated it well and he continued with cycle 2 on 03/14/2021, with cycle 3 on 03/28/2021, with cycle 4 on 04/11/2021, and was cycle 5 on 04/24/2021. He is seen for a follow-up visit. He has still been feeling pretty good, though he does complain that he is tired a lot. He still has normal activity. ECOG score is 0. He has good appetite. He has no fever or night sweats. He has had a little bit of soreness in his mouth. He has not had sore throat or difficulty swallowing. He has no shortness of breath, cough, or chest pain. He had some mild nausea for 4 to 5 days after his last treatment. He has not been having diarrhea, but lately he has been having some red blood in the stool. Where his initial rectal bleeding was bright red, it now has a darker red coloration. He has no complaints. He has no significant joint or bone pain. He has very few headaches. He again had just mild neuropathy following chemotherapy, and it had resolved by the weekend. Medications: buPROPion HCl ER (XL) 1 Tablet (of 300 mg) Tablet SR 24 HR Oral daily, predniSONE 1 Tablet (of 10 mg) Oral PRN, Xeljanz XR 1 Tablet (of 11 mg) Tablet SR 24 HR Oral daily Allergies: Calamine Medicated Vital Signs: Performed on May 09, 2021 09:21 Height - 75.00 in Weight - 227.8 lbs (HIGH) BSA - 2.32 sq.m BMI - 28.47 Temperature - 97.8 F (LOW) Pulse - 83 /min Respiration - 18 /min BP - 138/84 mm(hg) O2 Sat - 98 % Pain - 0 Fatigue - 2 Physical Examination: Constitutional - He looks good generally, Eyes - Sclerae nonicteric. Conjunctivae clear, ENMT - No lesions noted in the oral cavity, Hematologic/Lymphatic - No cervical, clavicular, or axillary adenopathy, Respiratory - Lungs are clear with good air movement bilaterally, Cardiovascular - Heart rhythm is regular. There is no murmur, gallop, or rub noted, Abdomen - Soft. Liver and spleen are not enlarged. There is no abdominal mass or ascites noted and there is no inguinal adenopathy, Extremities - No edema, Neurologic - No focal neurologic deficits noted. Lab/Imaging: Test performed on May 09, 2021 08:14 Sodium 140 mmol/L Potassium 4.3 mmol/L Chloride 107 mmol/L CO2 27 mmol/L Anion Gap 10.3 BUN 11 mg/dL Creatinine 1.2 mg/dL Cr Clearance (Est) 114.6100 mL/min eGFR 65.5 mL/min Glucose 84 mg/dL Osmolality - Calculated 289 mOsm/kg Calcium 8.8 mg/dL Protein, Total 6.7 g/dL Albumin 4.0 g/dL Globulin 2.7 g/dL Bilirubin, Total 0.5 mg/dL ALT (SGPT) 149 U/L AST (SGOT) 98 U/L Alkaline Phosphatase 98 IU/L WBC 3.8 10 3/uL RBC 5.26 10 6/uL HGB 14.5 g/dL HCT 43.4 % MCV 82.5 fL MCH 27.6 pg MCHC 33.4 g/dL RDW 14.7 % Platelet Count 97 10 3/cmm MPV 9.5 fL Neutrophils 2.27 10 3/uL Lymphocytes 1.0 10 3/uL Monocytes 0.4 10 3/uL Eosinophils 0.0 10 3/uL Basophils 0.0 10 3/uL Neutrophil % 60.2 % Lymphocyte % 27.6 % Monocyte % 9.8 % Eosinophil % 1.1 % Basophils % 0.8 % NRBC % 0 % CEA 3.8 ng/mL Problem List: 1. Well differentiated adenocarcinoma of the rectum, by clinical evaluation stage at least T3, N1, MSI stable. 2. Rheumatoid arthritis. 3. Grade 2 diastolic dysfunction. 4. Anxiety/depression. Problems Addressed with this Encounter and Plan: Patient with well differentiated adenocarcinoma of the rectum. His mismatch repair analysis showed intact expression of mismatch repair proteins. By ultrasound his disease was stage at least T3, N1. His staging CT scans also showed a possible metastatic lesion in the right lobe of the liver. Additional lesions involving both lobes of the liver were too small to characterize and several small pulmonary nodules were also too small to characterize. With those findings he was recommended to undergo total neoadjuvant therapy. He has now completed 5 cycles of neoadjuvant chemotherapy with modified FOLFOX. He continues to tolerate the chemotherapy extremely well. Side effects have been limited to mild fatigue, mild nausea, and mild neuropathy. Since his last treatment he has been having more rectal bleeding. The significance is uncertain, as it now has a darker red coloration compared to bright red blood in the stool at initial presentation. Has a CEA level is stable, he will continue with cycle 6 of modified FOLFOX. The dosages will remain the same. He returns in 2 weeks. In the meantime, he will require further evaluation if there is any worsening of the rectal bleeding. Signed By: Manish Estrada M.D. <<Signature on File>>
[2021-05-24 10:15] LABS: Basophils % 1.1 %; Eosinophils # 0.1 10^3/uL (0.0-0.8); Eosinophils % 1.8 %; Hematocrit 42.7 % (42.0-52.0); Hemoglobin 14.4 g/dL (11.7-16.6); Lymphocytes # 0.9 10^3/uL (0.8-4.8); Mean Corpuscular HGB Conc 33.7 g/dL (30.0-36.0); Mean Corpuscular Hemoglobin 28.1 pg (28.0-34.0); Mean Corpuscular Volume 83.2 fl (80-94); Mean Platelet Volume 10.1 fL (7.4-10.4); Monocytes # 0.2 10^3/uL (0.2-0.9); Monocytes % 7.9 %; Neutrophils % 57.8 %; Nucleated Red Blood Cells % 0 %; Platelet Count 97 10^3/cmm (130-400); Red Blood Count 5.13 10^6/uL (4.1-5.3); White Blood Count 2.8 10^3/uL (4.0-10.0)
[2021-05-24 10:43] LABS: Alanine Aminotransferase 88 U/L (0-41); Alkaline Phosphatase 101 IU/L (40-130); Aspartate Amino Transferase 54 U/L (0-40); Blood Urea Nitrogen 10 mg/dL (6-20); Calcium 9.1 mg/dL (8.5-10.5); Carbon Dioxide 25 mmol/L (22-29); Chloride 105 mmol/L (98-107); Globulin 2.5 g/dL (1.3-4.6); Glomerular Filtration Rate 72.1 mL/min (90-130); Glucose 123 mg/dL (65-115); Osmolality Calculated 286 mOsm/kg (285-295); Sodium 138 mmol/L (136-145); Total Bilirubin 0.7 mg/dL (0.15-1.2); Total Protein 6.5 g/dL (6.6-8.7)
[2021-05-24] MEDS: dextrose 5% 250 ML 75 ML IV (12:17)
[2021-05-24] MEDS: ondansetron 2 mg/ML SDV 2 mL 8 MG IVP (12:17)
--- NOTE | 2021-05-24 18:52 | ONC FU_ITS ---
Dr. Estrada Patient Follow-Up Note Patient: Neil Bah Unit #: [id number]: 1975 Dicatated By: Manish Estrada M.D.Date of Visit:May 24, 2021 Onc Med Follow-up/Prog Note Chief Complaint: Rectal cancer. History of Present Illness: This is a 45-year-old man with well differentiated adenocarcinoma of the rectum, by clinical evaluation stage at least T3, N1, MSI stable. He has rheumatoid arthritis and last year he was found to have evidence of grade 2 diastolic dysfunction in the course of undergoing evaluation for exertional dyspnea. He had onset of rectal bleeding in November of this year. He underwent colonoscopy by Dr. Marino which apparently showed a benign rectal polyp and a more dominant rectal polyp/tumor, confirmed on biopsy to be adenomatous with focal high-grade dysplasia. He was referred to Dr. Ross in [place]. His flexible sigmoidoscopy on 02/02/2021 showed a malignant appearing tumor on the first rectal fold spanning 40 to 50% of the circumference of the rectal wall. There was central ulceration and a crater ring noted. Ultrasound was suggestive of T3 disease and also noted was a possible extra rectal round hypodense lymph node suggesting possible lymph node involvement. Biopsy of the mass showed well differentiated adenocarcinoma. Mismatch repair analysis by IHC showed intact expression of MMR proteins. His staging CT scans of the chest, abdomen, and pelvis on 02/02/2021 showed a 6 mm and 3 mm right upper lobe pulmonary nodules and a 5 mm left lower lobe pulmonary nodule, nonspecific, but metastatic disease was not excluded. The liver showed a 2.0 cm hypodense nodule with ill-defined margins in the anterior superior right lobe. The appearance was suspicious for metastasis. Multiple tiny hypodensities in the left and right lobes were too small to characterize. Also noted was a a 1.1 cm fluid density cyst in the left lobe. There was suspected 4.1 cm inhomogeneous mass in the posterior rectum. There were no enlarged lymph nodes identified. I had seen him initially on 02/17/2021. With his disease being at least stage III, he was recommended to proceed with total neoadjuvant therapy. His medical history is otherwise significant for rheumatoid arthritis, for which he has been on treatment with Xeljanz. During the course of evaluation for exertional dyspnea, he was found to have evidence of grade 2 diastolic dysfunction. He has had no other known cardiac disease. He also has anxiety/depression. He is a non-smoker. He has a positive family history for colonic polyps and for colon cancer. INTERIM HISTORY: He began cycle 1 of neoadjuvant chemotherapy with modified FOLFOX on 02/28/2021. He tolerated it well and he continued with cycle 2 on 03/14/2021, with cycle 3 on 03/28/2021, with cycle 4 on 04/11/2021, with cycle 5 on 04/24/2021, and with cycle 6 on 05/09/2021. He is seen for a follow-up visit. He has been feeling pretty good generally. He has been getting more tired, but he still has normal activity. His ECOG score is 0. His appetite is good. He has no fever or night sweats. He says his neuropathy symptoms lasted longer after his last treatment, extending into the early part of this week. It is mostly resolved now. He has had no mouth sores. He has no shortness of breath, cough, or chest pain. He had mild nausea for couple days after treatment. His bowel function has been okay. He has not been aware of any blood in the stool this past week. He has no complaints. He has no significant joint or bone pain. He has just occasional headache. He has not been dizzy or lightheaded. Medications: buPROPion HCl ER (XL) 1 Tablet (of 300 mg) Tablet SR 24 HR Oral daily, predniSONE 1 Tablet (of 10 mg) Oral PRN Allergies: Calamine Medicated Vital Signs: Performed on May 24, 2021 11:10 Height - 75.00 in Weight - 228.8 lbs (HIGH) BSA - 2.32 sq.m BMI - 28.60 Temperature - 97.7 F (LOW) Pulse - 88 /min Respiration - 18 /min BP - 130/88 mm(hg) O2 Sat - 97 % Pain - 0 Physical Examination: Constitutional - He looks good generally, Eyes - Sclerae nonicteric. Conjunctivae clear, ENMT - No lesions noted in the oral cavity, Hematologic/Lymphatic - No cervical, clavicular, or axillary adenopathy, Respiratory - Lungs are clear with good air movement bilaterally, Cardiovascular - Heart rhythm is regular. There is no murmur, gallop, or rub noted, Abdomen - Soft. Liver and spleen are not enlarged. There is no abdominal mass or ascites noted and there is no inguinal adenopathy, Extremities - No edema, Neurologic - No focal neurologic deficits noted. Lab/Imaging: Test performed on May 24, 2021 09:54 Sodium 138 mmol/L Potassium 4.0 mmol/L Chloride 105 mmol/L CO2 25 mmol/L Anion Gap 12.0 BUN 10 mg/dL Creatinine 1.1 mg/dL Cr Clearance (Est) 123.7200 mL/min eGFR 72.1 mL/min Glucose 123 mg/dL Osmolality - Calculated 286 mOsm/kg Calcium 9.1 mg/dL Protein, Total 6.5 g/dL Albumin 4.0 g/dL Globulin 2.5 g/dL Bilirubin, Total 0.7 mg/dL ALT (SGPT) 88 U/L AST (SGOT) 54 U/L Alkaline Phosphatase 101 IU/L WBC 2.8 10 3/uL RBC 5.13 10 6/uL HGB 14.4 g/dL HCT 42.7 % MCV 83.2 fl MCH 28.1 pg MCHC 33.7 g/dL RDW 15.0 % Platelet Count 97 10 3/cmm MPV 10.1 fL Neutrophils 1.60 10 3/uL Lymphocytes 0.9 10 3/uL Monocytes 0.2 10 3/uL Eosinophils 0.1 10 3/uL Basophils 0.0 10 3/uL Neutrophil % 57.8 % Lymphocyte % 31.0 % Monocyte % 7.9 % Eosinophil % 1.8 % Basophils % 1.1 % NRBC % 0 % Test performed on May 09, 2021 08:14 CEA 3.8 ng/mL Problem List: 1. Well differentiated adenocarcinoma of the rectum, by clinical evaluation stage at least T3, N1, MSI stable. 2. Rheumatoid arthritis. 3. Grade 2 diastolic dysfunction. 4. Anxiety/depression. Problems Addressed with this Encounter and Plan: Patient with well differentiated adenocarcinoma of the rectum. His mismatch repair analysis showed intact expression of mismatch repair proteins. By ultrasound his disease was stage at least T3, N1. His staging CT scans also showed a possible metastatic lesion in the right lobe of the liver. Additional lesions involving both lobes of the liver were too small to characterize and several small pulmonary nodules were also too small to characterize. With those findings he was recommended to undergo total neoadjuvant therapy. He has now completed 6 cycles of neoadjuvant chemotherapy with modified FOLFOX. At the time of his 5th cycle he had reported some increase in rectal bleeding. He had no other associated symptoms and as his CEA remains stable, I opted to just continue with his chemotherapy. He is now having a little more fatigue and his neuropathy symptoms have worsened somewhat. He also now has moderately severe neutropenia. As such, he will proceed with cycle 7 of modified FOLFOX but the oxaliplatin will be administered with a 1 level dose reduction. I will recheck a CBC in 1 week and he will be given growth factor support with Neupogen as indicated. He will be scheduled for follow-up visit in 2 weeks. Signed By: Manish Estrada M.D. <<Signature on File>>
== END 2021-05-30 23:59 | disposition home or self-care (01) ==
LOC: ONCMED 05:38
PROVIDERS: PCP Internal Medicine; Visit Provider Internal Medicine Medical Oncology
DX: Z51.11 Encounter for antineoplastic chemotherapy (principal); C20 Malignant neoplasm of rectum; M06.9 Rheumatoid arthritis, unspecified; I51.89 Other ill-defined heart diseases; F41.9 Anxiety disorder, unspecified; F32.9 Major depressive disorder, single episode, unspecified; Z79.899 Other long term (current) drug therapy
CPT/HCPCS: 80053; 82378; 85025; 96367; 96368; 96413; 96415; 96416; 96523; 99214; J0640; J1100; J2405; J9190; J9263

== ENCOUNTER 2021-06-29 06:22 | Outpatient (RCR) | payer BC, SELFPAY ==
[2021-05-31 16:22] LABS: Basophils % 0.3 %; Eosinophils # 0.1 10^3/uL (0.0-0.8); Eosinophils % 2.1 %; Hematocrit 41.2 % (42.0-52.0); Lymphocytes # 1.3 10^3/uL (0.8-4.8); Lymphocytes % 38.2 %; Mean Corpuscular Hemoglobin 28.2 pg (28.0-34.0); Mean Corpuscular Volume 83.1 fl (80-94); Mean Platelet Volume 10.2 fL (7.4-10.4); Monocytes # 0.5 10^3/uL (0.2-0.9); Monocytes % 15.1 %; Neutrophils # 1.47 10^3/uL (1.8-7.7); Neutrophils % 43.4 %; Nucleated Red Blood Cells % 0 %; Platelet Count 114 10^3/cmm (130-400); Red Blood Count 4.96 10^6/uL (4.1-5.3); Red Cell Distribution Width 14.5 % (12.1-15.1); White Blood Count 3.4 10^3/uL (4.0-10.0)
[2021-06-06 11:07] LABS: Basophils % 0.5 %; Hemoglobin 14.2 g/dL (11.7-16.6); Lymphocytes # 1.2 10^3/uL (0.8-4.8); Lymphocytes % 28.8 %; Mean Corpuscular Hemoglobin 27.3 pg (28.0-34.0); Mean Corpuscular Volume 82.7 fl (80-94); Mean Platelet Volume 9.6 fL (7.4-10.4); Monocytes # 0.4 10^3/uL (0.2-0.9); Monocytes % 10.1 %; Neutrophils # 2.47 10^3/uL (1.8-7.7); Neutrophils % 59.4 %; Nucleated Red Blood Cells % 0 %; Platelet Count 88 10^3/cmm (130-400); Red Cell Distribution Width 14.7 % (12.1-15.1); White Blood Count 4.2 10^3/uL (4.0-10.0)
[2021-06-06 11:53] LABS: Alanine Aminotransferase 39 U/L (0-41); Alkaline Phosphatase 104 IU/L (40-130); Anion Gap 14.5 (5-19); Aspartate Amino Transferase 32 U/L (0-40); Blood Urea Nitrogen 11 mg/dL (6-20); Calcium 9.2 mg/dL (8.5-10.5); Carbon Dioxide 24 mmol/L (22-29); Chloride 104 mmol/L (98-107); Globulin 3.1 g/dL (1.3-4.6); Glomerular Filtration Rate 80.4 mL/min (90-130); Glucose 83 mg/dL (65-115); Osmolality Calculated 285 mOsm/kg (285-295); Potassium 4.5 mmol/L (3.5-5.1); Sodium 138 mmol/L (136-145); Total Bilirubin 0.8 mg/dL (0.15-1.2); Total Protein 7.1 g/dL (6.6-8.7)
[2021-06-06] MEDS: dextrose 5% 250 ML 75 ML IV (12:05)
[2021-06-06] MEDS: ondansetron 2 mg/ML SDV 2 mL 8 MG IVP (12:06)
--- NOTE | 2021-06-06 15:43 | ONC FU_ITS ---
Dr. Estrada Patient Follow-Up Note Patient: Neil Bah Unit #: [id number]: 1975 Dicatated By: Manish Estrada M.D.Date of Visit:Jun 06, 2021 Onc Med Follow-up/Prog Note Chief Complaint: Rectal cancer. History of Present Illness: This is a 45-year-old man with well differentiated adenocarcinoma of the rectum, by clinical evaluation stage at least T3, N1, MSI stable. He has rheumatoid arthritis and last year he was found to have evidence of grade 2 diastolic dysfunction in the course of undergoing evaluation for exertional dyspnea. He had onset of rectal bleeding in November of this year. He underwent colonoscopy by Dr. Marino which apparently showed a benign rectal polyp and a more dominant rectal polyp/tumor, confirmed on biopsy to be adenomatous with focal high-grade dysplasia. He was referred to Dr. Ross in [place]. His flexible sigmoidoscopy on 02/02/2021 showed a malignant appearing tumor on the first rectal fold spanning 40 to 50% of the circumference of the rectal wall. There was central ulceration and a crater ring noted. Ultrasound was suggestive of T3 disease and also noted was a possible extra rectal round hypodense lymph node suggesting possible lymph node involvement. Biopsy of the mass showed well differentiated adenocarcinoma. Mismatch repair analysis by IHC showed intact expression of MMR proteins. His staging CT scans of the chest, abdomen, and pelvis on 02/02/2021 showed a 6 mm and 3 mm right upper lobe pulmonary nodules and a 5 mm left lower lobe pulmonary nodule, nonspecific, but metastatic disease was not excluded. The liver showed a 2.0 cm hypodense nodule with ill-defined margins in the anterior superior right lobe. The appearance was suspicious for metastasis. Multiple tiny hypodensities in the left and right lobes were too small to characterize. Also noted was a a 1.1 cm fluid density cyst in the left lobe. There was suspected 4.1 cm inhomogeneous mass in the posterior rectum. There were no enlarged lymph nodes identified. I had seen him initially on 02/17/2021. With his disease being at least stage III, he was recommended to proceed with total neoadjuvant therapy. His medical history is otherwise significant for rheumatoid arthritis, for which he has been on treatment with Xeljanz. During the course of evaluation for exertional dyspnea, he was found to have evidence of grade 2 diastolic dysfunction. He has had no other known cardiac disease. He also has anxiety/depression. He is a non-smoker. He has a positive family history for colonic polyps and for colon cancer. INTERIM HISTORY: He began cycle 1 of neoadjuvant chemotherapy with modified FOLFOX on 02/28/2021. He tolerated it well and he continued with cycle 2 on 03/14/2021, with cycle 3 on 03/28/2021, with cycle 4 on 04/11/2021, with cycle 5 on 04/24/2021, with cycle 6 on 05/09/2021, and with cycle 7 on 05/24/2021. He is seen for a follow-up visit. He has been feeling good generally, though he is sometimes tired. He has normal activity. ECOG score is 0. His appetite is good. He has no fever or night sweats. He has not had sore mouth or throat. He does not complain of cough, and he has not been having shortness of breath or chest pain. He has no GI/ complaints. Bowel function has been normal, and he has had no further rectal bleeding. He has no significant joint or bone pain. He has headache occasionally. He does not complain of dizziness. He has had only mild neuropathy symptoms. Medications: buPROPion HCl ER (XL) 1 Tablet (of 300 mg) Tablet SR 24 HR Oral daily, predniSONE 1 Tablet (of 10 mg) Oral PRN Allergies: Calamine Medicated Vital Signs: Performed on Jun 06, 2021 11:43 Height - 75.00 in Weight - 230.4 lbs (HIGH) BSA - 2.33 sq.m BMI - 28.80 Temperature - 97.8 F (LOW) Pulse - 93 /min Respiration - 18 /min BP - 117/77 mm(hg) O2 Sat - 98 % Pain - 0 Fatigue - 2 Physical Examination: Constitutional - He looks good generally, Eyes - Sclerae nonicteric. Conjunctivae clear, ENMT - No lesions noted in the oral cavity, Hematologic/Lymphatic - No cervical, clavicular, or axillary adenopathy, Respiratory - Lungs are clear with good air movement bilaterally, Cardiovascular - Heart rhythm is regular. There is no murmur, gallop, or rub noted, Abdomen - Soft. Liver and spleen are not enlarged. There is no abdominal mass or ascites noted and there is no inguinal adenopathy, Extremities - Slight edema, Neurologic - No focal neurologic deficits noted. Lab/Imaging: Test performed on Jun 06, 2021 10:58 Sodium 138 mmol/L Potassium 4.5 mmol/L Chloride 104 mmol/L CO2 24 mmol/L Anion Gap 14.5 BUN 11 mg/dL Creatinine 1.0 mg/dL Cr Clearance (Est) 136.0900 mL/min eGFR 80.4 mL/min Glucose 83 mg/dL Osmolality - Calculated 285 mOsm/kg Calcium 9.2 mg/dL Protein, Total 7.1 g/dL Albumin 4.0 g/dL Globulin 3.1 g/dL Bilirubin, Total 0.8 mg/dL ALT (SGPT) 39 U/L AST (SGOT) 32 U/L Alkaline Phosphatase 104 IU/L WBC 4.2 10 3/uL RBC 5.20 10 6/uL HGB 14.2 g/dL HCT 43.0 % MCV 82.7 fl MCH 27.3 pg MCHC 33.0 g/dL RDW 14.7 % Platelet Count 88 10 3/cmm MPV 9.6 fL Neutrophils 2.47 10 3/uL Lymphocytes 1.2 10 3/uL Monocytes 0.4 10 3/uL Eosinophils 0.0 10 3/uL Basophils 0.0 10 3/uL Neutrophil % 59.4 % Lymphocyte % 28.8 % Monocyte % 10.1 % Eosinophil % 1.0 % Basophils % 0.5 % NRBC % 0 % Problem List: 1. Well differentiated adenocarcinoma of the rectum, by clinical evaluation stage at least T3, N1, MSI stable. 2. Rheumatoid arthritis. 3. Grade 2 diastolic dysfunction. 4. Anxiety/depression. Problems Addressed with this Encounter and Plan: Patient with well differentiated adenocarcinoma of the rectum. His mismatch repair analysis showed intact expression of mismatch repair proteins. By ultrasound his disease was stage at least T3, N1. His staging CT scans also showed a possible metastatic lesion in the right lobe of the liver. Additional lesions involving both lobes of the liver were too small to characterize and several small pulmonary nodules were also too small to characterize. With those findings he was recommended to undergo total neoadjuvant therapy. He began cycle 1 of modified FOLFOX on 02/28/2021. He has now completed 7 cycles. With cycle 7, he did receive a 1 level reduction in the oxaliplatin dosage due to neutropenia. He also has mild thrombocytopenia. Side effects of otherwise been limited to mild fatigue and mild neuropathy. Overall, he has been tolerating treatment well. He will proceed now with his 8th and final cycle of neoadjuvant modified FOLFOX. The dosages will remain the same. He will see Dr. Hogan for radiation oncology consultation next week. I anticipate starting radiation concurrently with Xeloda within 2 to 3 weeks. Signed By: Manish Estrada M.D. <<Signature on File>>
--- NOTE | 2021-06-12 13:40 | N.ONRAD NP_ITS ---
Radiation Oncology Consultation Patient Name: Neil Bah Date of : 1975 Date of Service: 06/12/2021 Attending Physician: Edgar Hogan M.D. Neil Bah was seen in consultation this afternoon at the request of Manish Estrada M.D. for consideration of pelvic radiotherapy in the management of a recently diagnosed rectal cancer. He was referred to Gentry Enciso M.D. at [facility] in [place], [place] for evaluation of a dysplastic rectal polyp previously identified during a diagnostic colonoscopy for hematochezia (medical records were personally reviewed). A flexible sigmoidoscopy with biopsy was performed on February 02, 2021. A malignant appearing mass was noted at the first rectal fold involving approximately 50% of the circumference of the rectal wall. Ultrasonography demonstrated a T3 lesion and a hypodense lymph node possibly indicating metastatic disease. Biopsies confirmed a well-differentiated adenocarcinoma without loss of nuclear expression of MMR proteins. Of note, an MRI was not obtained to identify an involved or threatened circumferential resection margin. Total neoadjuvant therapy was recommended. Modified FOLFOX was administered by Manish Estrada M.D. A total of eight cycles were administered between the dates of February 28, 2021 through June 06, 2021. He presents for discussion regarding neoadjuvant pelvic radiotherapy. I discussed with Mr. Bah the AJCC clinical stage IIIB (T3N1) rectal cancer corresponding to his disease. I also reviewed the National [employer] Guidelines for neoadjuvant chemoradiotherapy or total neoadjuvant therapy preceding chemoradiation. I anticipate a five week course of pelvic radiotherapy. A computed tomographic radiotherapy planning scan with contrast in the treatment position will be acquired to delineate the gross tumor volume and regional lymph nodes. The potential toxicities of pelvic radiotherapy were reviewed. The patient has verbalized understanding would like to proceed as recommended. The patient's medical treatment plan was discussed with Manish Estrada M.D. Signed by: Dr. Edgar Hogan 06/12/2021 1:38:09 PM
--- NOTE | 2021-06-15 | CT_ITS ---
Radiation Therapy Planning CT images; total exam DLP: 1571.72 mGy-cm MTDD
[2021-06-21 10:52] LABS: Basophils % 1.1 %; Eosinophils % 0.6 %; Hematocrit 43.4 % (42.0-52.0); Hemoglobin 14.3 g/dL (11.7-16.6); Lymphocytes # 1.1 10^3/uL (0.8-4.8); Lymphocytes % 29.1 %; Mean Corpuscular HGB Conc 32.9 g/dL (30.0-36.0); Mean Corpuscular Hemoglobin 27.4 pg (28.0-34.0); Mean Corpuscular Volume 83.3 fl (80-94); Monocytes # 0.4 10^3/uL (0.2-0.9); Monocytes % 11.1 %; Neutrophils # 2.08 10^3/uL (1.8-7.7); Neutrophils % 57.5 %; Nucleated Red Blood Cells % 0 %; Platelet Count 133 10^3/cmm (130-400); Red Blood Count 5.21 10^6/uL (4.1-5.3); Red Cell Distribution Width 14.5 % (12.1-15.1); White Blood Count 3.6 10^3/uL (4.0-10.0)
[2021-06-21 11:53] LABS: Carcinoembryonic Antigen 3.6 ng/mL (0.0-4.7)
[2021-06-21 12:04] LABS: Alanine Aminotransferase 32 U/L (0-41); Albumin Level 3.9 g/dL (3.5-5.2); Alkaline Phosphatase 139 IU/L (40-130); Anion Gap 13.5 (5-19); Aspartate Amino Transferase 27 U/L (0-40); Blood Urea Nitrogen 8 mg/dL (6-20); Calcium 9.7 mg/dL (8.5-10.5); Carbon Dioxide 26 mmol/L (22-29); Chloride 104 mmol/L (98-107); Glomerular Filtration Rate 80.4 mL/min (90-130); Glucose 84 mg/dL (65-115); Osmolality Calculated 286 mOsm/kg (285-295); Potassium 4.5 mmol/L (3.5-5.1); Sodium 139 mmol/L (136-145); Total Bilirubin 0.5 mg/dL (0.15-1.2); Total Protein 6.9 g/dL (6.6-8.7)
--- NOTE | 2021-06-27 10:11 | ONCRAD TMN_ITS ---
Radiation Oncology Treatment Management Note Patient Name: Neil Bah Date of : 1975 Date of Service: 06/27/2021 Attending Physician: Edgar Hogan M.D. 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 The initial CEA was 4.7 ng/mL. Modified FOLFOX was administered by Manish Estrada M.D. A total of eight cycles were administered between the dates of February 28, 2021 through June 06, 2021. The patient has received 8 Gy of a prescribed 50 Rico with an intensity modulated radiotherapy plan utilizing a step and shoot treatment technique. He has been prescribed daily oral chemotherapy consisting of capecitabine (825 mg/m2). Upon review of systems, he denied any gastrointestinal complaints related to radiotherapy. On physical examination, the patient weighed 226 lbs. His temperature was 97.5 ???F with a blood pressure of 121/79 mmHg. His pulse was 89 bpm and the respiratory rate was 18. No erythema was noted within the treatment grier. Continue pelvic radiotherapy as prescribed. Signed by: Dr. Edgar Hogan 06/27/2021 10:10:28 AM
[2021-06-27 12:14] LABS: Carcinoembryonic Antigen 3.6 ng/mL (0.0-4.7)
[2021-06-27 12:25] LABS: Alanine Aminotransferase 49 U/L (0-41); Alkaline Phosphatase 125 IU/L (40-130); Anion Gap 14.4 (5-19); Aspartate Amino Transferase 42 U/L (0-40); Blood Urea Nitrogen 13 mg/dL (6-20); Calcium 9.3 mg/dL (8.5-10.5); Carbon Dioxide 25 mmol/L (22-29); Chloride 102 mmol/L (98-107); Globulin 3.4 g/dL (1.3-4.6); Glomerular Filtration Rate 80.4 mL/min (90-130); Glucose 88 mg/dL (65-115); Osmolality Calculated 284 mOsm/kg (285-295); Potassium 4.4 mmol/L (3.5-5.1); Sodium 137 mmol/L (136-145); Total Bilirubin 0.6 mg/dL (0.15-1.2); Total Protein 7.4 g/dL (6.6-8.7)
[2021-06-27 12:59] LABS: Basophils % 0.3 %; Eosinophils % 0.7 %; Hematocrit 45.5 % (42.0-52.0); Hemoglobin 14.8 g/dL (11.7-16.6); Lymphocytes # 0.9 10^3/uL (0.8-4.8); Mean Corpuscular HGB Conc 32.5 g/dL (30.0-36.0); Mean Corpuscular Hemoglobin 27.8 pg (28.0-34.0); Mean Corpuscular Volume 85.4 fl (80-94); Mean Platelet Volume 8.8 fL (7.4-10.4); Monocytes # 0.4 10^3/uL (0.2-0.9); Monocytes % 12.9 %; Neutrophils % 54.4 %; Nucleated Red Blood Cells % 0 %; Platelet Count 168 10^3/cmm (130-400); Red Blood Count 5.33 10^6/uL (4.1-5.3); Red Cell Distribution Width 14.6 % (12.1-15.1); White Blood Count 2.9 10^3/uL (4.0-10.0)
--- NOTE | 2021-06-30 06:32 | ONC FU_ITS ---
Dr. Estrada Patient Follow-Up Note Patient: Neil Bah Unit #: [id number]: 1975 Dicatated By: Manish Estrada M.D.Date of Visit:Jun 29, 2021 Onc Med Follow-up/Prog Note Chief Complaint: Rectal cancer. History of Present Illness: This is a 46 year-old man with well differentiated adenocarcinoma of the rectum, by clinical evaluation stage at least T3, N1, MSI stable. He has rheumatoid arthritis and last year he was found to have evidence of grade 2 diastolic dysfunction in the course of undergoing evaluation for exertional dyspnea. He had onset of rectal bleeding in November of this year. He underwent colonoscopy by Dr. Marino which apparently showed a benign rectal polyp and a more dominant rectal polyp/tumor, confirmed on biopsy to be adenomatous with focal high-grade dysplasia. He was referred to Dr. Ross in [place]. His flexible sigmoidoscopy on 02/02/2021 showed a malignant appearing tumor on the first rectal fold spanning 40 to 50% of the circumference of the rectal wall. There was central ulceration and a crater ring noted. Ultrasound was suggestive of T3 disease and also noted was a possible extra rectal round hypodense lymph node suggesting possible lymph node involvement. Biopsy of the mass showed well differentiated adenocarcinoma. Mismatch repair analysis by IHC showed intact expression of MMR proteins. His staging CT scans of the chest, abdomen, and pelvis on 02/02/2021 showed a 6 mm and 3 mm right upper lobe pulmonary nodules and a 5 mm left lower lobe pulmonary nodule, nonspecific, but metastatic disease was not excluded. The liver showed a 2.0 cm hypodense nodule with ill-defined margins in the anterior superior right lobe. The appearance was suspicious for metastasis. Multiple tiny hypodensities in the left and right lobes were too small to characterize. Also noted was a a 1.1 cm fluid density cyst in the left lobe. There was suspected 4.1 cm inhomogeneous mass in the posterior rectum. There were no enlarged lymph nodes identified. I had seen him initially on 02/17/2021. With his disease being at least stage III, he was recommended to proceed with total neoadjuvant therapy. His medical history is otherwise significant for rheumatoid arthritis, for which he has been on treatment with Xeljanz. During the course of evaluation for exertional dyspnea, he was found to have evidence of grade 2 diastolic dysfunction. He has had no other known cardiac disease. He also has anxiety/depression. He is a non-smoker. He has a positive family history for colonic polyps and for colon cancer. INTERIM HISTORY: He began cycle 1 of neoadjuvant chemotherapy with modified FOLFOX on 02/28/2021. He tolerated well and he was unable to continue treatment at 2-week intervals. As of 06/06/2021 he began his 8th and final cycle of treatment. He was then seen by Dr. Hogan, and he began radiation concurrently with Xeloda on 06/21/2021. He is seen for a follow-up visit. He has been feeling pretty good generally. He is getting more tired, but he has been doing some walking and he still does light work. ECOG score is 1. Appetite is adequate, though somewhat variable. He has no fever or night sweats. He has had no mouth sores. He has a little bit of cough. He does not complain of shortness of breath or chest pain. He has no GI or complaints. In particular, he has not had diarrhea and he has not had any rectal bleeding. His knees ache occasionally. He has no other joint or bone pain. He does not complain of headache or dizziness. 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 Medications: buPROPion HCl ER (XL) 1 Tablet (of 300 mg) Tablet SR 24 HR Oral daily, predniSONE 1 Tablet (of 10 mg) Oral PRN Allergies: Calamine Medicated Vital Signs: Performed on Jun 29, 2021 13:11 Height - 75.00 in Weight - 229.2 lbs (HIGH) BSA - 2.33 sq.m BMI - 28.65 Temperature - 98.5 F Pulse - 97 /min Respiration - 18 /min BP - 118/79 mm(hg) O2 Sat - 96 % Pain - 0 Fatigue - 3 Physical Examination: Constitutional - He looks good generally, Eyes - Sclerae nonicteric. Conjunctivae clear, ENMT - No lesions noted in the oral cavity, Hematologic/Lymphatic - No cervical, clavicular, or axillary adenopathy, Respiratory - Lungs are clear with good air movement bilaterally, Cardiovascular - Heart rhythm is regular. There is no murmur, gallop, or rub noted, Abdomen - Soft. Liver and spleen are not enlarged. There is no abdominal mass or ascites noted and there is no inguinal adenopathy, Extremities - No edema, Neurologic - No focal neurologic deficits noted. Lab/Imaging: Test performed on Jun 27, 2021 10:30 Sodium 137 mmol/L Potassium 4.4 mmol/L Chloride 102 mmol/L CO2 25 mmol/L Anion Gap 14.4 BUN 13 mg/dL Creatinine 1.0 mg/dL Cr Clearance (Est) 136.0900 mL/min eGFR 80.4 mL/min Glucose 88 mg/dL Osmolality - Calculated 284 mOsm/kg Calcium 9.3 mg/dL Protein, Total 7.4 g/dL Albumin 4.0 g/dL Globulin 3.4 g/dL Bilirubin, Total 0.6 mg/dL ALT (SGPT) 49 U/L AST (SGOT) 42 U/L Alkaline Phosphatase 125 IU/L WBC 2.9 10 3/uL RBC 5.33 10 6/uL HGB 14.8 g/dL HCT 45.5 % MCV 85.4 fl MCH 27.8 pg MCHC 32.5 g/dL RDW 14.6 % Platelet Count 168 10 3/cmm MPV 8.8 fL Neutrophils 1.60 10 3/uL Lymphocytes 0.9 10 3/uL Monocytes 0.4 10 3/uL Eosinophils 0.0 10 3/uL Basophils 0.0 10 3/uL Neutrophil % 54.4 % Lymphocyte % 31.0 % Monocyte % 12.9 % Eosinophil % 0.7 % Basophils % 0.3 % NRBC % 0 % CEA 3.6 ng/mL Problem List: 1. Well differentiated adenocarcinoma of the rectum, by clinical evaluation stage at least T3, N1, MSI stable. 2. Rheumatoid arthritis. 3. Grade 2 diastolic dysfunction. 4. Anxiety/depression. Problems Addressed with this Encounter and Plan: Patient with well differentiated adenocarcinoma of the rectum. His mismatch repair analysis showed intact expression of mismatch repair proteins. By ultrasound his disease was stage at least T3, N1. His staging CT scans also showed a possible metastatic lesion in the right lobe of the liver. Additional lesions involving both lobes of the liver were too small to characterize and several small pulmonary nodules were also too small to characterize. With those findings he was recommended to undergo total neoadjuvant therapy. He began cycle 1 of modified FOLFOX on 02/28/2021. He tolerated it well and he was then able to continue treatment at 2-week intervals. As of 06/06/2021 he began his 8th and final cycle of treatment. He was then seen by Dr. Hogan, and he began radiation concurrently with Xeloda on 06/21/2021. At this point he continues to have moderately severe neutropenia. 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 He overall, though, he appears to be tolerating treatment well. He will continue Xeloda 2000 mg twice daily on days of radiation. His blood counts will be monitored weekly. I will see him again within 2 to 3 weeks, or sooner if needed. Signed By: Manish Estrada M.D. <<Signature on File>>
== END 2021-06-29 23:59 | disposition home or self-care (01) ==
LOC: ONCMED 06:22
PROVIDERS: Absent Provider Radiology Radiation Oncology; PCP Internal Medicine; Visit Provider Internal Medicine Medical Oncology
DX: Z51.0 Encounter for antineoplastic radiation therapy (principal); Z51.11 Encounter for antineoplastic chemotherapy; C20 Malignant neoplasm of rectum; M06.9 Rheumatoid arthritis, unspecified; I51.89 Other ill-defined heart diseases; F41.9 Anxiety disorder, unspecified; F32.9 Major depressive disorder, single episode, unspecified; Z79.899 Other long term (current) drug therapy
CPT/HCPCS: 36591; 77300; 77301; 77334; 77336; 77338; 77386; 77470; 80053; 82378; 85025; 96367; 96368; 96413; 96415; 96416; 96523; 99205; 99214; 99215; J0640; J1100; J2405; J9190; J9263; Q9967

== ENCOUNTER 2021-07-25 06:17 | Outpatient (RCR) | payer BC, SELFPAY ==
--- NOTE | 2021-07-03 10:07 | ONCRAD TMN_ITS ---
Radiation Oncology Treatment Management Note Patient Name: Neil Bah Date of : 1975 Date of Service: 07/03/2021 Attending Physician: Edgar Hogan M.D. 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 The initial CEA was 4.7 ng/mL. Modified FOLFOX was administered by Manish Estrada M.D. A total of eight cycles were administered between the dates of February 28, 2021 through June 06, 2021. The patient has received 16 Gy of a prescribed 50 Rico with an intensity modulated radiotherapy plan utilizing a step and shoot treatment technique. He has been prescribed daily oral chemotherapy consisting of capecitabine (825 mg/m2). Upon review of systems, he denied any gastrointestinal complaints related to radiotherapy. He reported blood-tinged stool. On physical examination, the patient weighed 232 lbs. His temperature was 97.9 ???F with a blood pressure of 122/83 mmHg. His pulse was 89 bpm and the respiratory rate was 18. No erythema was noted within the treatment grier. Continue pelvic radiotherapy as planned. Signed by: Dr. Edgar Hogan 07/03/2021 10:06:04 AM
[2021-07-03 10:46] LABS: Basophils % 1.1 %; Eosinophils # 0.1 10^3/uL (0.0-0.8); Eosinophils % 3.3 %; Hemoglobin 13.5 g/dL (11.7-16.6); Lymphocytes # 0.7 10^3/uL (0.8-4.8); Lymphocytes % 25.3 %; Mean Corpuscular HGB Conc 32.9 g/dL (30.0-36.0); Mean Corpuscular Hemoglobin 27.5 pg (28.0-34.0); Mean Corpuscular Volume 83.5 fl (80-94); Mean Platelet Volume 9.4 fL (7.4-10.4); Monocytes # 0.3 10^3/uL (0.2-0.9); Neutrophils # 1.57 10^3/uL (1.8-7.7); Neutrophils % 57.5 %; Nucleated Red Blood Cells % 0 %; Platelet Count 114 10^3/cmm (130-400); Red Blood Count 4.91 10^6/uL (4.1-5.3); Red Cell Distribution Width 14.6 % (12.1-15.1); White Blood Count 2.7 10^3/uL (4.0-10.0)
[2021-07-10 09:49] LABS: Basophils % 1.1 %; Eosinophils # 0.2 10^3/uL (0.0-0.8); Eosinophils % 5.4 %; Hematocrit 39.2 % (42.0-52.0); Hemoglobin 13.2 g/dL (11.7-16.6); Lymphocytes # 0.5 10^3/uL (0.8-4.8); Lymphocytes % 19.3 %; Mean Corpuscular HGB Conc 33.7 g/dL (30.0-36.0); Mean Corpuscular Hemoglobin 28.4 pg (28.0-34.0); Mean Corpuscular Volume 84.5 fl (80-94); Mean Platelet Volume 9.2 fL (7.4-10.4); Monocytes # 0.2 10^3/uL (0.2-0.9); Monocytes % 8.2 %; Neutrophils # 1.82 10^3/uL (1.8-7.7); Neutrophils % 64.9 %; Nucleated Red Blood Cells % 0 %; Platelet Count 100 10^3/cmm (130-400); Red Blood Count 4.64 10^6/uL (4.1-5.3); Red Cell Distribution Width 15.9 % (12.1-15.1); White Blood Count 2.8 10^3/uL (4.0-10.0)
--- NOTE | 2021-07-10 10:28 | ONCRAD TMN_ITS ---
Radiation Oncology Treatment Management Note Patient Name: Neil Bah Date of : 1975 Date of Service: 07/10/2021 Attending Physician: Edgar Hogan M.D. 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 The initial CEA was 4.7 ng/mL. Modified FOLFOX was administered by Manish Estrada M.D. A total of eight cycles were administered between the dates of February 28, 2021 through June 06, 2021. The patient has received 28 Gy of a prescribed 50 Rico with an intensity modulated radiotherapy plan utilizing a step and shoot treatment technique. He has been prescribed daily oral chemotherapy consisting of capecitabine (825 mg/m2). Upon review of systems, he reported LUTS. On physical examination, the patient weighed 231 lbs. His temperature was 97.8 ???F with a blood pressure of 109/79 mmHg. His pulse was 77 bpm and the respiratory rate was 18. No erythema was noted within the treatment grier. Continue pelvic radiotherapy as planned. I will recommend a trial of high-dose NSAID for his urinary symptoms. Signed by: Dr. Edgar Hgoan 07/10/2021 10:27:25 AM
--- NOTE | 2021-07-17 11:29 | ONCRAD TMN_ITS ---
Radiation Oncology Treatment Management Note Patient Name: Neil Bah Date of : 1975 Date of Service: 07/17/2021 Attending Physician: Edgar Hogan M.D. 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 The initial CEA was 4.7 ng/mL. Modified FOLFOX was administered by Manish Estrada M.D. A total of eight cycles were administered between the dates of February 28, 2021 through June 06, 2021. The patient has received 38 Gy of a prescribed 50 Rico with an intensity modulated radiotherapy plan utilizing a step and shoot treatment technique. He has been prescribed daily oral chemotherapy consisting of capecitabine (825 mg/m2). Upon review of systems, he reported improvement in urinary symptoms with 600 mg of Ibuprofen. On physical examination, the patient weighed 230 lbs. His temperature was 97.9 ???F and the blood pressure was 128/79 mmHg. His pulse was 81 bpm and the respiratory rate was 18. No erythema was noted within the treatment grier. External hemorrhoids were present. Continue pelvic radiotherapy as prescribed. Signed by: Dr. Edgar Hogan 07/17/2021 11:27:56 AM
[2021-07-17 12:06] LABS: Basophils % 0.8 %; Eosinophils # 0.3 10^3/uL (0.0-0.8); Eosinophils % 7.1 %; Hematocrit 37.9 % (42.0-52.0); Hemoglobin 12.9 g/dL (11.7-16.6); Lymphocytes # 0.4 10^3/uL (0.8-4.8); Lymphocytes % 11.1 %; Mean Corpuscular Hemoglobin 28.7 pg (28.0-34.0); Mean Corpuscular Volume 84.4 fl (80-94); Mean Platelet Volume 9.1 fL (7.4-10.4); Monocytes # 0.4 10^3/uL (0.2-0.9); Monocytes % 9.1 %; Neutrophils # 2.81 10^3/uL (1.8-7.7); Neutrophils % 71.1 %; Nucleated Red Blood Cells % 0 %; Platelet Count 117 10^3/cmm (130-400); Red Blood Count 4.49 10^6/uL (4.1-5.3); Red Cell Distribution Width 16.5 % (12.1-15.1)
[2021-07-17 12:39] LABS: Alanine Aminotransferase 36 U/L (0-41); Albumin Level 3.9 g/dL (3.5-5.2); Alkaline Phosphatase 106 IU/L (40-130); Anion Gap 10.4 (5-19); Aspartate Amino Transferase 30 U/L (0-40); Blood Urea Nitrogen 10 mg/dL (6-20); Calcium 9.2 mg/dL (8.5-10.5); Carbon Dioxide 27 mmol/L (22-29); Chloride 105 mmol/L (98-107); Globulin 2.7 g/dL (1.3-4.6); Glomerular Filtration Rate 90.8 mL/min (90-130); Glucose 91 mg/dL (65-115); Osmolality Calculated 285 mOsm/kg (285-295); Potassium 4.4 mmol/L (3.5-5.1); Sodium 138 mmol/L (136-145); Total Bilirubin 0.6 mg/dL (0.15-1.2); Total Protein 6.6 g/dL (6.6-8.7)
--- NOTE | 2021-07-17 18:51 | ONC FU_ITS ---
Dr. Estrada Patient Follow-Up Note Patient: Neil Bah Unit #: [id number]: 1975 Dicatated By: Manish Estrada M.D.Date of Visit:Jul 17, 2021 Onc Med Follow-up/Prog Note Chief Complaint: Rectal cancer. History of Present Illness: This is a 46 year-old man with well differentiated adenocarcinoma of the rectum, by clinical evaluation stage at least T3, N1, MSI stable. He has rheumatoid arthritis and last year he was found to have evidence of grade 2 diastolic dysfunction in the course of undergoing evaluation for exertional dyspnea. He had onset of rectal bleeding in November of this year. He underwent colonoscopy by Dr. Marino which apparently showed a benign rectal polyp and a more dominant rectal polyp/tumor, confirmed on biopsy to be adenomatous with focal high-grade dysplasia. He was referred to Dr. Ross in [place]. His flexible sigmoidoscopy on 02/02/2021 showed a malignant appearing tumor on the first rectal fold spanning 40 to 50% of the circumference of the rectal wall. There was central ulceration and a crater ring noted. Ultrasound was suggestive of T3 disease and also noted was a possible extra rectal round hypodense lymph node suggesting possible lymph node involvement. Biopsy of the mass showed well differentiated adenocarcinoma. Mismatch repair analysis by IHC showed intact expression of MMR proteins. His staging CT scans of the chest, abdomen, and pelvis on 02/02/2021 showed a 6 mm and 3 mm right upper lobe pulmonary nodules and a 5 mm left lower lobe pulmonary nodule, nonspecific, but metastatic disease was not excluded. The liver showed a 2.0 cm hypodense nodule with ill-defined margins in the anterior superior right lobe. The appearance was suspicious for metastasis. Multiple tiny hypodensities in the left and right lobes were too small to characterize. Also noted was a a 1.1 cm fluid density cyst in the left lobe. There was suspected 4.1 cm inhomogeneous mass in the posterior rectum. There were no enlarged lymph nodes identified. I had seen him initially on 02/17/2021. With his disease being at least stage III, he was recommended to proceed with total neoadjuvant therapy. His medical history is otherwise significant for rheumatoid arthritis, for which he has been on treatment with Xeljanz. During the course of evaluation for exertional dyspnea, he was found to have evidence of grade 2 diastolic dysfunction. He has had no other known cardiac disease. He also has anxiety/depression. He is a non-smoker. He has a positive family history for colonic polyps and for colon cancer. INTERIM HISTORY: He began cycle 1 of neoadjuvant chemotherapy with modified FOLFOX on 02/28/2021. He tolerated well and he was unable to continue treatment at 2-week intervals. As of 06/06/2021 he began his 8th and final cycle of treatment. He was then seen by Dr. Hogan, and he began radiation concurrently with Xeloda on 06/21/2021. He is seen for a follow-up visit. He is due to complete his radiation next week. Thus far he has been tolerating treatment very well. He does have some fatigue, but he still has normal activity. ECOG score is 0. His appetite comes and goes. He does not have fever or night sweats. He has had no mouth sores. He has no shortness of breath, cough, or chest pain. He has not been having nausea or diarrhea. In fact he has continued to have mild constipation. He is having more frequent urination, and he also has having some slight dysuria. He has no significant joint or bone pain. He does not complain of headache or dizziness. He does have some residual neuropathy in his feet, but it is mild and it is getting better. Medications: buPROPion HCl ER (XL) 1 Tablet (of 300 mg) Tablet SR 24 HR Oral daily, predniSONE 1 Tablet (of 10 mg) Oral PRN Allergies: Calamine Medicated Vital Signs: Performed on Jul 17, 2021 12:51 Height - 75.00 in Weight - 231.8 lbs (HIGH) BSA - 2.34 sq.m BMI - 28.97 Temperature - 97.4 F (LOW) Pulse - 83 /min Respiration - 18 /min BP - 137/77 mm(hg) O2 Sat - 98 % Pain - 0 Fatigue - 3 Performed on Jul 17, 2021 11:24 Height - 75.00 in Weight - 230.4 lbs Temperature - 97.9 F Pulse - 81 /min Respiration - 18 /min BP - 128/79 mm(hg) O2 Sat - 99 % Pain - 0 Performed on Jul 17, 2021 11:24 BMI - 28.798 kg/m2 (HIGH) Physical Examination: Constitutional - He looks good generally, Eyes - Sclerae nonicteric. Conjunctivae clear, ENMT - No lesions noted in the oral cavity, Hematologic/Lymphatic - No cervical, clavicular, or axillary adenopathy, Respiratory - Lungs are clear with good air movement bilaterally, Cardiovascular - Heart rhythm is regular. There is no murmur, gallop, or rub noted, Abdomen - Soft. Liver and spleen are not enlarged. There is no abdominal mass or ascites noted and there is no inguinal adenopathy, Extremities - No edema, Neurologic - No focal neurologic deficits noted. Lab/Imaging: Test performed on Jul 17, 2021 11:50 Sodium 138 mmol/L Potassium 4.4 mmol/L Chloride 105 mmol/L CO2 27 mmol/L Anion Gap 10.4 BUN 10 mg/dL Creatinine 0.9 mg/dL Cr Clearance (Est) 151.2100 mL/min eGFR 90.8 mL/min Glucose 91 mg/dL Osmolality - Calculated 285 mOsm/kg Calcium 9.2 mg/dL Protein, Total 6.6 g/dL Albumin 3.9 g/dL Globulin 2.7 g/dL Bilirubin, Total 0.6 mg/dL ALT (SGPT) 36 U/L AST (SGOT) 30 U/L Alkaline Phosphatase 106 IU/L WBC 4.0 10 3/uL RBC 4.49 10 6/uL HGB 12.9 g/dL HCT 37.9 % MCV 84.4 fl MCH 28.7 pg MCHC 34.0 g/dL RDW 16.5 % Platelet Count 117 10 3/cmm MPV 9.1 fL Neutrophils 2.81 10 3/uL Lymphocytes 0.4 10 3/uL Monocytes 0.4 10 3/uL Eosinophils 0.3 10 3/uL Basophils 0.0 10 3/uL Neutrophil % 71.1 % Lymphocyte % 11.1 % Monocyte % 9.1 % Eosinophil % 7.1 % Basophils % 0.8 % NRBC % 0 % Problem List: 1. Well differentiated adenocarcinoma of the rectum, by clinical evaluation stage at least T3, N1, MSI stable. 2. Rheumatoid arthritis. 3. Grade 2 diastolic dysfunction. 4. Anxiety/depression. Problems Addressed with this Encounter and Plan: Patient with well differentiated adenocarcinoma of the rectum. His mismatch repair analysis showed intact expression of mismatch repair proteins. By ultrasound his disease was stage at least T3, N1. His staging CT scans also showed a possible metastatic lesion in the right lobe of the liver. Additional lesions involving both lobes of the liver were too small to characterize and several small pulmonary nodules were also too small to characterize. With those findings he was recommended to undergo total neoadjuvant therapy. He began cycle 1 of modified FOLFOX on 02/28/2021. He tolerated it well and he was then able to continue treatment at 2-week intervals. As of 06/06/2021 he began his 8th and final cycle of treatment. He was then seen by Dr. Hogan, and he began radiation concurrently with Xeloda on 06/21/2021. During treatment he has continued to have some mild fatigue and he also has mild neutropenia. Overall, he has been tolerating treatment very well. He will continue Xeloda 2000 mg twice daily on days of radiation. I will just plan to see him again in 1 month. Signed By: Manish Estrada M.D. <<Signature on File>>
--- NOTE | 2021-07-24 09:34 | ONCRAD TMN_ITS ---
Radiation Oncology Treatment Management Note Patient Name: Neil Bah Date of : 1975 Date of Service: 07/24/2021 Attending Physician: Edgar Hogan M.D. 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 The initial CEA was 4.7 ng/mL. Modified FOLFOX was administered by Manish Estrada M.D. A total of eight cycles were administered between the dates of February 28, 2021 through June 06, 2021. The patient has received 48 Gy of a prescribed 50 Rico with an intensity modulated radiotherapy plan utilizing a step and shoot treatment technique. He has been prescribed daily oral chemotherapy consisting of capecitabine (825 mg/m2). Upon review of systems, he reported improvement in urinary symptoms with Flomax. On physical examination, the patient weighed 228 lbs. His temperature was 97.4 ???F and the blood pressure was 125/72 mmHg. His pulse was 89 bpm and the respiratory rate was 18. A grade II dermatitis was noted within the gluteal cleft. Continue pelvic radiotherapy as planned. Signed by: Dr. Edgar Hogan 07/24/2021 9:33:07 AM
--- NOTE | 2021-07-25 09:54 | N.ONRD TS_ITS ---
Radiation OncologyTreatment Summary Patient Name: Neil Bah Date of : 1975 Date of Service: 07/25/2021 Attending Physician: Edgar Hogan M.D. 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 The initial CEA was 4.7 ng/mL. Modified FOLFOX was administered by Manish Estrada M.D. A total of eight cycles were administered between the dates of February 28, 2021 through June 06, 2021. Pelvic radiation therapy was delivered between the dates of June 21, 2021 through July 25, 2021. A prescribed dose of 50 Gy was delivered in 25 fractions encompassing 35 elapsed days. The gross tumor volume and regional lymph node stations were treated utilizing an intensity modulated radiotherapy plan with a step and shoot treatment technique. The plan designed nine gantry angles (20???, 60???, 100???, 140???, 180???, 220???, 260???, 300???, and 340???) replicating an arc. The collimator rotation was 0???. The field sizes spanned 16.4 cm x 21.8 cm to 18.1 cm x 21 cm. The SSDs measured a minimum of 80.2 cm to a maximum of 90.3 cm. The ports delivered 166 MU, 159 MU, 148 MU, 149 MU, 169 MU, 145 MU, 175 MU, 174 MU, and 173 MU corresponding to the gantry angles described. All treatments were performed with the Kampyle linear accelerator and an isocentric technique. A photon energy of 6 MV was prescribed. The dose was calculated by Anisotropic Analytic Algorithm with the plan normalized to deliver 100% of the prescription dose to 95% of the planning target volume. He was prescribed daily oral chemotherapy consisting of Capecitabine (825 mg/m2) during radiotherapy Signed by: Dr. Edgar Hogan 07/25/2021 9:52:28 AM
== END 2021-07-30 23:59 | disposition home or self-care (01) ==
LOC: ONCMED 06:17
PROVIDERS: Internal Medicine Medical Oncology; Absent Provider Radiology Radiation Oncology; PCP Internal Medicine; Visit Provider Radiology Radiation Oncology
DX: Z51.0 Encounter for antineoplastic radiation therapy (principal); C20 Malignant neoplasm of rectum; M06.9 Rheumatoid arthritis, unspecified; I51.89 Other ill-defined heart diseases; F41.9 Anxiety disorder, unspecified; F32.9 Major depressive disorder, single episode, unspecified; Z79.899 Other long term (current) drug therapy
CPT/HCPCS: 36591; 77336; 77386; 80053; 85025; 99214

== ENCOUNTER 2021-08-17 06:39 | Outpatient (RCR) | payer BC, SELFPAY ==
[2021-08-17 09:21] LABS: Basophils % 0.4 %; Eosinophils % 1.3 %; Hematocrit 42.4 % (42.0-52.0); Hemoglobin 14.1 g/dL (11.7-16.6); Lymphocytes # 0.6 10^3/uL (0.8-4.8); Lymphocytes % 24.6 %; Mean Corpuscular HGB Conc 33.3 g/dL (30.0-36.0); Mean Corpuscular Volume 87.2 fl (80-94); Mean Platelet Volume 8.7 fL (7.4-10.4); Monocytes # 0.2 10^3/uL (0.2-0.9); Monocytes % 9.1 %; Neutrophils # 1.49 10^3/uL (1.8-7.7); Neutrophils % 64.2 %; Nucleated Red Blood Cells % 0 %; Platelet Count 119 10^3/cmm (130-400); Red Blood Count 4.86 10^6/uL (4.1-5.3); Red Cell Distribution Width 15.9 % (12.1-15.1); White Blood Count 2.3 10^3/uL (4.0-10.0)
[2021-08-17 10:16] LABS: Alanine Aminotransferase 32 U/L (0-41); Alkaline Phosphatase 120 IU/L (40-130); Anion Gap 15.8 (5-19); Aspartate Amino Transferase 27 U/L (0-40); Blood Urea Nitrogen 13 mg/dL (6-20); Calcium 8.8 mg/dL (8.5-10.5); Carbon Dioxide 21 mmol/L (22-29); Chloride 105 mmol/L (98-107); Glomerular Filtration Rate 59.4 mL/min (90-130); Glucose 106 mg/dL (65-115); Osmolality Calculated 287 mOsm/kg (285-295); Potassium 3.8 mmol/L (3.5-5.1); Sodium 138 mmol/L (136-145); Total Bilirubin 0.6 mg/dL (0.15-1.2)
--- NOTE | 2021-08-20 14:06 | ONC FU_ITS ---
Dr. Estrada Patient Follow-Up Note Patient: Neil Bah Unit #: [id number]: 1975 Dicatated By: Manish Estrada M.D.Date of Visit:Aug 17, 2021 Onc Med Follow-up/Prog Note Chief Complaint: Rectal cancer. History of Present Illness: This is a 46 year-old man with well differentiated adenocarcinoma of the rectum, by clinical evaluation stage at least T3, N1, MSI stable. He has rheumatoid arthritis and last year he was found to have evidence of grade 2 diastolic dysfunction in the course of undergoing evaluation for exertional dyspnea. He had onset of rectal bleeding in November of this year. He underwent colonoscopy by Dr. Marino which apparently showed a benign rectal polyp and a more dominant rectal polyp/tumor, confirmed on biopsy to be adenomatous with focal high-grade dysplasia. He was referred to Dr. Ross in [place]. His flexible sigmoidoscopy on 02/02/2021 showed a malignant appearing tumor on the first rectal fold spanning 40 to 50% of the circumference of the rectal wall. There was central ulceration and a crater ring noted. Ultrasound was suggestive of T3 disease and also noted was a possible extra rectal round hypodense lymph node suggesting possible lymph node involvement. Biopsy of the mass showed well differentiated adenocarcinoma. Mismatch repair analysis by IHC showed intact expression of MMR proteins. His staging CT scans of the chest, abdomen, and pelvis on 02/02/2021 showed a 6 mm and 3 mm right upper lobe pulmonary nodules and a 5 mm left lower lobe pulmonary nodule, nonspecific, but metastatic disease was not excluded. The liver showed a 2.0 cm hypodense nodule with ill-defined margins in the anterior superior right lobe. The appearance was suspicious for metastasis. Multiple tiny hypodensities in the left and right lobes were too small to characterize. Also noted was a a 1.1 cm fluid density cyst in the left lobe. There was suspected 4.1 cm inhomogeneous mass in the posterior rectum. There were no enlarged lymph nodes identified. I had seen him initially on 02/17/2021. With his disease being at least stage III, he was recommended to proceed with total neoadjuvant therapy. His medical history is otherwise significant for rheumatoid arthritis, for which he has been on treatment with Xeljanz. During the course of evaluation for exertional dyspnea, he was found to have evidence of grade 2 diastolic dysfunction. He has had no other known cardiac disease. He also has anxiety/depression. He is a non-smoker. He has a positive family history for colonic polyps and for colon cancer. INTERIM HISTORY: He began cycle 1 of neoadjuvant chemotherapy with modified FOLFOX on 02/28/2021. He tolerated well and he was unable to continue treatment at 2-week intervals. As of 06/06/2021 he began his 8th and final cycle of treatment. He was then seen by Dr. Hogan, and he began radiation concurrently with Xeloda on 06/21/2021. He completed treatment on 07/25/2021 to a total dose of 5000 cGy administered in 25 fractions. He is seen for a follow-up visit. He has been feeling pretty good generally. He continues to have some fatigue following completion of the chemotherapy and radiation, but he is working. ECOG score is 1. He has good appetite. He has no fever or night sweats. He has not had sore mouth or throat. He does not complain of cough, and he has not been having shortness of breath or chest pain. He currently has no GI complaints. Overall, his bowel function has improved. He did have to start start tamsulosin for bladder symptoms, those have improved with the medication. He is having some joint pain. He also continues to have some neuropathy, worse in his feet than his hands. Medications: buPROPion HCl ER (XL) 1 Tablet (of 300 mg) Tablet SR 24 HR Oral daily, predniSONE 1 Tablet (of 10 mg) Oral PRN, Tamsulosin HCl 1 (0.4 mg) Capsule Oral at bedtime Allergies: Calamine Medicated Vital Signs: Performed on Aug 17, 2021 10:51 Height - 75.00 in Weight - 229.8 lbs (HIGH) BSA - 2.33 sq.m BMI - 28.72 Temperature - 97.2 F (LOW) Pulse - 84 /min Respiration - 16 /min BP - 110/74 mm(hg) O2 Sat - 98 % Pain - 0 Fatigue - 0 Physical Examination: Constitutional - He looks good generally, Eyes - Sclerae nonicteric. Conjunctivae clear, ENMT - No lesions noted in the oral cavity, Hematologic/Lymphatic - No cervical, clavicular, or axillary adenopathy, Respiratory - Lungs are clear with good air movement bilaterally, Cardiovascular - Heart rhythm is regular. There is no murmur, gallop, or rub noted, Abdomen - Soft. Liver and spleen are not enlarged. There is no abdominal mass or ascites noted and there is no inguinal adenopathy, Extremities - No edema, Neurologic - No focal neurologic deficits noted. Lab/Imaging: Test performed on Aug 17, 2021 09:08 Sodium 138 mmol/L Potassium 3.8 mmol/L Chloride 105 mmol/L CO2 21 mmol/L Anion Gap 15.8 BUN 13 mg/dL Creatinine 1.3 mg/dL Cr Clearance (Est) 104.6800 mL/min eGFR 59.4 mL/min Glucose 106 mg/dL Osmolality - Calculated 287 mOsm/kg Calcium 8.8 mg/dL Protein, Total 7.0 g/dL Albumin 4.0 g/dL Globulin 3.0 g/dL Bilirubin, Total 0.6 mg/dL ALT (SGPT) 32 U/L AST (SGOT) 27 U/L Alkaline Phosphatase 120 IU/L WBC 2.3 10 3/uL RBC 4.86 10 6/uL HGB 14.1 g/dL HCT 42.4 % MCV 87.2 fl MCH 29.0 pg MCHC 33.3 g/dL RDW 15.9 % Platelet Count 119 10 3/cmm MPV 8.7 fL Neutrophils 1.49 10 3/uL Lymphocytes 0.6 10 3/uL Monocytes 0.2 10 3/uL Eosinophils 0.0 10 3/uL Basophils 0.0 10 3/uL Neutrophil % 64.2 % Lymphocyte % 24.6 % Monocyte % 9.1 % Eosinophil % 1.3 % Basophils % 0.4 % NRBC % 0 % CEA 3.0 ng/mL Problem List: 1. Well differentiated adenocarcinoma of the rectum, by clinical evaluation stage at least T3, N1, MSI stable. 2. Rheumatoid arthritis. 3. Grade 2 diastolic dysfunction. 4. Anxiety/depression. Problems Addressed with this Encounter and Plan: Patient with well differentiated adenocarcinoma of the rectum. His mismatch repair analysis showed intact expression of mismatch repair proteins. By ultrasound his disease was stage at least T3, N1. His staging CT scans also showed a possible metastatic lesion in the right lobe of the liver. Additional lesions involving both lobes of the liver were too small to characterize and several small pulmonary nodules were also too small to characterize. With those findings he was recommended to undergo total neoadjuvant therapy. He began cycle 1 of modified FOLFOX on 02/28/2021. He tolerated it well and he was then able to continue treatment at 2-week intervals. As of 06/06/2021 he began his 8th and final cycle of treatment. He was then seen by Dr. Hogan, and he began radiation concurrently with Xeloda on 06/21/2021. He completed treatment on 07/25/2021 to a total dose of 5000 cGy administered in 25 fractions. At this point he continues to have some fatigue, and he also has some residual neuropathy following the chemotherapy. Overall, though, he appears to be doing well clinically. He is scheduled to have his surgery on 19 September. In the meantime, I will be conferring with Dr. Ross regarding further management of the hepatic lesion. Signed By: Manish Estrada M.D. <<Signature on File>>
== END 2021-08-29 23:59 | disposition home or self-care (01) ==
LOC: ONCMED 06:39
PROVIDERS: Absent Provider Radiology Radiation Oncology; PCP Internal Medicine; Visit Provider Internal Medicine Medical Oncology
DX: C20 Malignant neoplasm of rectum (principal); C78.7 Secondary malignant neoplasm of liver and intrahepatic bile duct; G62.0 Drug-induced polyneuropathy; T45.1X5A Adverse effect of antineoplastic and immunosuppressive drugs, initial encounter; M06.9 Rheumatoid arthritis, unspecified; I51.9 Heart disease, unspecified; F41.9 Anxiety disorder, unspecified; F32.9 Major depressive disorder, single episode, unspecified; Z79.899 Other long term (current) drug therapy; Z92.21 Personal history of antineoplastic chemotherapy; Z92.3 Personal history of irradiation
CPT/HCPCS: 36591; 80053; 82378; 85025; 99214

== ENCOUNTER 2021-09-01 07:14 | Outpatient (RCR) | payer BC, SELFPAY ==
--- NOTE | 2021-09-01 10:43 | ONCRAD EPV_ITS ---
Radiation Oncology Follow-Up Note Patient Name: Neil Bah Date of : 1975 Date of Service: 09/01/2021 Attending Physician: Edgar Hogan M.D. Neil Bah returned to my office this morning for a routinely scheduled follow-up appointment. He completed neoadjuvant pelvic radiotherapy in June for the management of a clinical stage IIIB (T3N1) adenocarcinoma of the rectum (nuclear expression of MMR proteins intact). The initial CEA was 4.7 ng/mL. Modified FOLFOX was administered by Manish Estrada M.D. A total of eight cycles were administered between the dates of February 28, 2021 through June 06, 2021. Pelvic radiation therapy was delivered between the dates of June 21, 2021 through July 25, 2021. A prescribed dose of 50 Gy was delivered in 25 fractions encompassing 35 elapsed days. On review of systems, the patient denied any gastrointestinal complaints related to treatment. On physical examination, the patient weighed 233 pounds. The temperature is 98 ???F and his blood pressure was 105/74 mmHg. The pulse was 86 bpm and his respiratory rate was 18 breaths per minute. Rectal exam was deferred. In summary, Mr. Bah returned for a routine post-radiotherapy follow-up. No sequelae from treatment were present. He has been scheduled for surgery accordant with Gentry Ross M.D. Signed by: Dr. Edgar Hogan 09/01/2021 10:41:31 AM
== END 2021-09-29 23:59 | disposition home or self-care (01) ==
LOC: ONCMED 07:14
PROVIDERS: Absent Provider Radiology Radiation Oncology; PCP Internal Medicine; Visit Provider Radiology Radiation Oncology
DX: C20 Malignant neoplasm of rectum (principal); Z92.3 Personal history of irradiation
CPT/HCPCS: 99024

== ENCOUNTER 2021-11-24 06:05 | Outpatient (RCR) | payer BC, SELFPAY ==
[2021-11-22 07:31] LABS: Basophils % 0.3 %; Eosinophils # 0.1 10^3/uL (0.0-0.8); Hematocrit 35.7 % (42.0-52.0); Hemoglobin 11.2 g/dL (11.7-16.6); Lymphocytes # 0.9 10^3/uL (0.8-4.8); Lymphocytes % 23.8 %; Mean Corpuscular HGB Conc 31.4 g/dL (30.0-36.0); Mean Corpuscular Hemoglobin 24.2 pg (28.0-34.0); Mean Corpuscular Volume 77.3 fl (80-94); Mean Platelet Volume 9.3 fL (7.4-10.4); Monocytes # 0.3 10^3/uL (0.2-0.9); Monocytes % 7.3 %; Neutrophils # 2.37 10^3/uL (1.8-7.7); Neutrophils % 66.3 %; Nucleated Red Blood Cells % 0 %; Platelet Count 233 10^3/cmm (130-400); Red Blood Count 4.62 10^6/uL (4.1-5.3); Red Cell Distribution Width 13.3 % (12.1-15.1); White Blood Count 3.6 10^3/uL (4.0-10.0)
[2021-11-22 08:09] LABS: Alanine Aminotransferase 23 U/L (0-41); Albumin Level 3.8 g/dL (3.5-5.2); Alkaline Phosphatase 213 IU/L (40-130); Anion Gap 13.8 (5-19); Aspartate Amino Transferase 29 U/L (0-40); Blood Urea Nitrogen 11 mg/dL (6-20); Calcium 9.7 mg/dL (8.5-10.5); Carbon Dioxide 26 mmol/L (22-29); Carcinoembryonic Antigen 10.5 ng/mL (0.0-4.7); Chloride 104 mmol/L (98-107); Glomerular Filtration Rate 80.4 mL/min (90-130); Glucose 113 mg/dL (65-115); Osmolality Calculated 290 mOsm/kg (285-295); Potassium 3.8 mmol/L (3.5-5.1); Sodium 140 mmol/L (136-145); Total Bilirubin 0.4 mg/dL (0.15-1.2); Total Protein 6.8 g/dL (6.6-8.7)
[2021-11-22 08:27] LABS: Iron 21 ug/dL (59-158); Percent Saturation 7.6 % (20-50); Total Iron Binding Capacity 275 mcg/dl; Unsaturated Iron Binding 254 ug/dL (112-347)
[2021-11-22] MEDS: ondansetron 2 mg/ML SDV 2 mL 8 MG IVP (08:30)
[2021-11-22] MEDS: dextrose 5% 250 ML 75 ML IV (08:35)
[2021-11-22 11:27] LABS: Add Urine Culture? Yes; Add Urine Microscopic? YES; Bacteria Urine 2+ /hpf; Bilirubin Urine Neg (Negative); Blood Urine 2+ (Negative); Glucose Urine UA Norm (Normal); Ketones Urine Negative (Negative); Leukocyte Esterase Urine 1+ (Negative); Nitrate Urine Positive (Negative); Protein Urine Neg (Negative); RBC Urine 0-4 /hpf (0-2); Specific Gravity, Urine 1.015 (1.005-1.030); Squamous Epithelial Cell Urine RARE /hpf (0-5); Urine Appearance Hazy (CLEAR); Urine Color Yellow (Yellow); Urobilinogen Urine Neg (Negative); pH Urine 5 (5-7)
--- NOTE | 2021-11-22 12:48 | ONC FU_ITS ---
Dr. Estrada Patient Follow-Up Note Patient: Neil Bah Unit #: [id number]: 1975 Dicatated By: Manish Estrada M.D.Date of Visit:Nov 22, 2021 Onc Med Follow-up/Prog Note Chief Complaint: Rectal cancer. History of Present Illness: This is a 46 year-old man with well differentiated adenocarcinoma of the rectum, by clinical evaluation stage at least T3, N1, MSI stable. He has rheumatoid arthritis and last year he was found to have evidence of grade 2 diastolic dysfunction in the course of undergoing evaluation for exertional dyspnea. He had onset of rectal bleeding in November of this year. He underwent colonoscopy by Dr. Marino which apparently showed a benign rectal polyp and a more dominant rectal polyp/tumor, confirmed on biopsy to be adenomatous with focal high-grade dysplasia. He was referred to Dr. Ross in [place]. His flexible sigmoidoscopy on 02/02/2021 showed a malignant appearing tumor on the first rectal fold spanning 40 to 50% of the circumference of the rectal wall. There was central ulceration and a crater ring noted. Ultrasound was suggestive of T3 disease and also noted was a possible extra rectal round hypodense lymph node suggesting possible lymph node involvement. Biopsy of the mass showed well differentiated adenocarcinoma. Mismatch repair analysis by IHC showed intact expression of MMR proteins. His staging CT scans of the chest, abdomen, and pelvis on 02/02/2021 showed a 6 mm and 3 mm right upper lobe pulmonary nodules and a 5 mm left lower lobe pulmonary nodule, nonspecific, but metastatic disease was not excluded. The liver showed a 2.0 cm hypodense nodule with ill-defined margins in the anterior superior right lobe. The appearance was suspicious for metastasis. Multiple tiny hypodensities in the left and right lobes were too small to characterize. Also noted was a a 1.1 cm fluid density cyst in the left lobe. There was suspected 4.1 cm inhomogeneous mass in the posterior rectum. There were no enlarged lymph nodes identified. I had seen him initially on 02/17/2021. With his disease being at least stage III, he was recommended to proceed with total neoadjuvant therapy. He then began cycle 1 of neoadjuvant chemotherapy with modified FOLFOX on 02/28/2021. He tolerated well and he was unable to continue treatment at 2-week intervals. As of 06/06/2021 he began his 8th and final cycle of treatment. He was then seen by Dr. Hogan, and he began radiation concurrently with Xeloda on 06/21/2021. He completed treatment on 07/25/2021 to a total dose of 5000 cGy administered in [address] of the abdomen/pelvis on 08/23/2021 showed progression in the right hepatic lobe metastatic lesion measuring 5.2 x 4.1 cm compared to 2.8 x 2.5 cm on the prior study. There are no other sites of metastatic involvement noted. On 09/19/2021 he underwent robotic to open extended low anterior resection with loop ileostomy. Pathology showed well differentiated mucinous adenocarcinoma measuring 2.8 cm in greatest dimension. There was invasion through the muscularis propria into pericolorectal tissue. The radial margin was noted to be involved with invasive carcinoma, and there was involvement in 6 of 14 lymph nodes. The treatment effect was consistent with partial response, score 2. Pathologic staging was ypT3, ypN2a. The tumor was again noted to be MSI stable. By next generation sequencing, it was noted to harbor a KRAS exon 2 mutation and a BRAF exon 15 mutation. Additional pathologic variants included exon 10 and exon 16 APC mutations and an SMAD4 mutation. His medical history is otherwise significant for rheumatoid arthritis, for which he has been on treatment with Xeljanz. During the course of evaluation for exertional dyspnea, he was found to have evidence of grade 2 diastolic dysfunction. He has had no other known cardiac disease. He also has anxiety/depression. He is a non-smoker. He has a positive family history for colonic polyps and for colon cancer. INTERIM HISTORY: In September 2021 he was seen by Dr[address] Davi Pablo at [facility] in regard to further management of the liver metastasis. It was recommended that he have additional chemotherapy prior to attempting surgical resection. There has been some delay due to issues with his insurance coverage, but he returns now to begin a course of treatment with a FOLFIRI chemotherapy regimen. He has had a difficult recovery following the surgery in August. His energy has been up and down, but gradually improving. He is walking a lot and able to do some light work. ECOG score is 1. His appetite is getting better, but he has had significant weight loss, in the range of 30 pounds. He does not have fever or night sweats. He has not had sore mouth or throat, and he does not complain of cough. He has not been having shortness of breath or chest pain. He currently has no GI complaints. Bowel function has been okay with the ostomy. He has had ongoing problems with bladder function. He did require a temporary indwelling Eaton catheter after the surgery, and he has still having some difficulty voiding. His legs hurt a little bit, but he otherwise is not having any joint or bone pain. He does not complain of headache or dizziness. His neuropathy, unfortunately, had worsened after he finished chemotherapy, and he continues to have significant numbness and tingling in his feet and to a lesser extent in his hands. Medications: buPROPion HCl ER (XL) 1 Tablet (of 300 mg) Tablet SR 24 HR Oral daily, Tamsulosin HCl 1 (0.4 mg) Capsule Oral at bedtime Allergies: Calamine Medicated Vital Signs: Performed on Nov 22, 2021 10:07 Height - 75.00 in Weight - 202.4 lbs (LOW) BSA - 2.21 sq.m BMI - 25.30 Temperature - 97.8 F (LOW) Pulse - 87 /min Respiration - 18 /min BP - 117/72 mm(hg) O2 Sat - 100 % Pain - 0 Fatigue - 5 Physical Examination: Constitutional - He appears somewhat weak generally. He has had noticeable weight loss, Eyes - Sclerae nonicteric. Conjunctivae clear, ENMT - No lesions noted in the oral cavity, Hematologic/Lymphatic - No cervical, clavicular, or axillary adenopathy, Respiratory - Lungs are clear with good air movement bilaterally, Cardiovascular - Heart rhythm is regular. There is no murmur, gallop, or rub noted, Abdomen - Soft. The incision appears well-healed. Liver and spleen are not enlarged. There is no abdominal mass or ascites noted and there is no inguinal adenopathy, Extremities - No edema, Neurologic - No focal neurologic deficits noted. Lab/Imaging: Test performed on Nov 22, 2021 07:21 Iron 21 mcg/dL Iron Binding Capacity (TIBC) 275 mcg/dl % Iron Saturation 7.6 % UIBC 254 mcg/dL Test performed on Nov 22, 2021 07:15 Sodium 140 mmol/L Potassium 3.8 mmol/L Chloride 104 mmol/L CO2 26 mmol/L Anion Gap 13.8 BUN 11 mg/dL Creatinine 1.0 mg/dL Cr Clearance (Est) 119.86 mL/min eGFR 80.4 mL/min Glucose 113 mg/dL Osmolality - Calculated 290 mOsm/kg Calcium 9.7 mg/dL Protein, Total 6.8 g/dL Albumin 3.8 g/dL Globulin 3.0 g/dL Bilirubin, Total 0.4 mg/dL ALT (SGPT) 23 U/L AST (SGOT) 29 U/L Alkaline Phosphatase 213 IU/L WBC 3.6 10 3/uL RBC 4.62 10 6/uL HGB 11.2 g/dL HCT 35.7 % MCV 77.3 fl MCH 24.2 pg MCHC 31.4 g/dL RDW 13.3 % Platelet Count 233 10 3/cmm MPV 9.3 fL Neutrophils 2.37 10 3/uL Lymphocytes 0.9 10 3/uL Monocytes 0.3 10 3/uL Eosinophils 0.1 10 3/uL Basophils 0.0 10 3/uL Neutrophil % 66.3 % Lymphocyte % 23.8 % Monocyte % 7.3 % Eosinophil % 2.0 % Basophils % 0.3 % NRBC % 0 % CEA 10.5 ng/mL Problem List: 1. Well differentiated adenocarcinoma of the rectum, stage ANDERSON (yp T3, ypN2a, M1a), MSI stable. 2. Rheumatoid arthritis. 3. Grade 2 diastolic dysfunction. 4. Anxiety/depression. Problems Addressed with this Encounter and Plan: 1. Patient with well differentiated adenocarcinoma of the rectum. His mismatch repair analysis showed intact expression of mismatch repair proteins. By ultrasound his disease was stage at least T3, N1. His staging CT scans also showed a possible metastatic lesion in the right lobe of the liver. Additional lesions involving both lobes of the liver were too small to characterize and several small pulmonary nodules were also too small to characterize. With those findings he was recommended to undergo total neoadjuvant therapy. He began cycle 1 of modified FOLFOX on 02/28/2021. He tolerated it well and he was then able to continue treatment at 2-week intervals. As of 06/06/2021 he began his 8th and final cycle of treatment. He was then seen by Dr. Hogan, and he began radiation concurrently with Xeloda on 06/21/2021. He completed treatment on 07/25/2021 to a total dose of 5000 cGy administered in [address]. [address] abdomen/pelvis on 08/23/2021 showed progression in the right hepatic lobe metastatic lesion measuring 5.2 x 4.1 cm compared to 2.8 x 2.5 cm on the prior study. On 09/19/2021 he underwent robotic to open extended low anterior resection with loop ileostomy. Pathology showed well differentiated mucinous adenocarcinoma measuring 2.8 cm in greatest dimension. There was invasion through the muscularis propria into pericolorectal tissue. The radial margin was noted to be involved with invasive carcinoma, and there was involvement in 6 of [address] lymph nodes. Given the CT and operative findings, his final staging was ANDERSON (yp T3, ypN2a, M1a). By next generation sequencing, the tumor was noted to harbor a KRAS exon 2 mutation and a BRAF exon 15 mutation. He has been showing gradual recovery from the surgery. In the meantime, in September he had surgical consultation with Dr. Davi Pablo at [facility] and he has been recommended to undergo additional chemotherapy prior to attempting resection of the right hepatic lobe lesion. He will now begin cycle 1 of FOLFIRI chemotherapy. This will be admitted without the 5-FU bolus. As he may still be undergoing additional surgery, I am also not including Avastin with the regimen. I reviewed anticipated side effects which may include nausea/vomiting, alopecia, fatigue, stomatitis, diarrhea, and low blood counts, among others. He will be scheduled for a toxicity check in 1 week and for a follow-up visit in 2 weeks. 2. He has persistent chemotherapy induced neuropathy. He will be starting a trial of symptomatic management with gabapentin. Signed By: Manish Estrada M.D. <<Signature on File>>
== END 2021-11-27 23:59 | disposition home or self-care (01) ==
LOC: ONCMED 06:05
PROVIDERS: PCP Internal Medicine; Visit Provider Internal Medicine Medical Oncology
DX: Z51.11 Encounter for antineoplastic chemotherapy (principal); C20 Malignant neoplasm of rectum; M06.9 Rheumatoid arthritis, unspecified; I51.9 Heart disease, unspecified; F41.9 Anxiety disorder, unspecified; F32.9 Major depressive disorder, single episode, unspecified; Z79.899 Other long term (current) drug therapy
CPT/HCPCS: 80053; 81001; 82378; 83540; 83550; 85025; 87077; 87086; 87186; 96367; 96368; 96375; 96413; 96415; 96416; 96523; 99215; J0461; J0640; J1100; J2405; J9190; J9206

== ENCOUNTER 2021-12-27 06:47 | Outpatient (RCR) | payer BC, SELFPAY ==
[2021-11-29 12:46] LABS: Basophils % 0.4 %; Eosinophils # 0.1 10^3/uL (0.0-0.8); Eosinophils % 2.2 %; Hematocrit 33.2 % (42.0-52.0); Hemoglobin 10.2 g/dL (11.7-16.6); Lymphocytes # 0.8 10^3/uL (0.8-4.8); Mean Corpuscular HGB Conc 30.7 g/dL (30.0-36.0); Mean Corpuscular Hemoglobin 23.1 pg (28.0-34.0); Mean Corpuscular Volume 75.1 fl (80-94); Mean Platelet Volume 8.8 fL (7.4-10.4); Monocytes # 0.2 10^3/uL (0.2-0.9); Neutrophils % 59.7 %; Nucleated Red Blood Cells % 0 %; Platelet Count 224 10^3/cmm (130-400); Red Blood Count 4.42 10^6/uL (4.1-5.3); Red Cell Distribution Width 13.2 % (12.1-15.1); White Blood Count 2.7 10^3/uL (4.0-10.0)
--- NOTE | 2021-11-30 20:42 | ONC FU_ITS ---
Clau Duff Progress Note Patient: Neil Bah Unit #: [id number]: 1975 Dicatated By: Clau Duff N.P.Date of Visit:Nov 29, 2021 Onc MED Follow-up/Prog Note Chief Complaint: Rectal cancer. History of Present Illness: This is a 46 year-old man with well differentiated adenocarcinoma of the rectum, by clinical evaluation stage at least T3, N1, MSI stable. He has rheumatoid arthritis and last year he was found to have evidence of grade 2 diastolic dysfunction in the course of undergoing evaluation for exertional dyspnea. He had onset of rectal bleeding in November of this year. He underwent colonoscopy by Dr. Marino which apparently showed a benign rectal polyp and a more dominant rectal polyp/tumor, confirmed on biopsy to be adenomatous with focal high-grade dysplasia. He was referred to Dr. Ross in [place]. His flexible sigmoidoscopy on 02/02/2021 showed a malignant appearing tumor on the first rectal fold spanning 40 to 50% of the circumference of the rectal wall. There was central ulceration and a crater ring noted. Ultrasound was suggestive of T3 disease and also noted was a possible extra rectal round hypodense lymph node suggesting possible lymph node involvement. Biopsy of the mass showed well differentiated adenocarcinoma. Mismatch repair analysis by IHC showed intact expression of MMR proteins. His staging CT scans of the chest, abdomen, and pelvis on 02/02/2021 showed a 6 mm and 3 mm right upper lobe pulmonary nodules and a 5 mm left lower lobe pulmonary nodule, nonspecific, but metastatic disease was not excluded. The liver showed a 2.0 cm hypodense nodule with ill-defined margins in the anterior superior right lobe. The appearance was suspicious for metastasis. Multiple tiny hypodensities in the left and right lobes were too small to characterize. Also noted was a a 1.1 cm fluid density cyst in the left lobe. There was suspected 4.1 cm inhomogeneous mass in the posterior rectum. There were no enlarged lymph nodes identified. Dr. Estrada had seen him initially on 02/17/2021. With his disease being at least stage III, he was recommended to proceed with total neoadjuvant therapy. He then began cycle 1 of neoadjuvant chemotherapy with modified FOLFOX on 02/28/2021. He tolerated well and he was unable to continue treatment at 2-week intervals. As of 06/06/2021 he began his 8th and final cycle of treatment. He was then seen by Dr. Hogan, and he began radiation concurrently with Xeloda on 06/21/2021. He completed treatment on 07/25/2021 to a total dose of 5000 cGy administered in [address] of the abdomen/pelvis on 08/23/2021 showed progression in the right hepatic lobe metastatic lesion measuring 5.2 x 4.1 cm compared to 2.8 x 2.5 cm on the prior study. There are no other sites of metastatic involvement noted. On 09/19/2021 he underwent robotic to open extended low anterior resection with loop ileostomy. Pathology showed well differentiated mucinous adenocarcinoma measuring 2.8 cm in greatest dimension. There was invasion through the muscularis propria into pericolorectal tissue. The radial margin was noted to be involved with invasive carcinoma, and there was involvement in 6 of 14 lymph nodes. The treatment effect was consistent with partial response, score 2. Pathologic staging was ypT3, ypN2a. The tumor was again noted to be MSI stable. By next generation sequencing, it was noted to harbor a KRAS exon 2 mutation and a BRAF exon 15 mutation. Additional pathologic variants included exon 10 and exon 16 APC mutations and an SMAD4 mutation. His medical history is otherwise significant for rheumatoid arthritis, for which he has been on treatment with Xeljanz. During the course of evaluation for exertional dyspnea, he was found to have evidence of grade 2 diastolic dysfunction. He has had no other known cardiac disease. He also has anxiety/depression. He is a non-smoker. He has a positive family history for colonic polyps and for colon cancer. INTERIM HISTORY: In September 2021 he was seen by Dr. Davi Pablo at [facility] in regard to further management of the liver metastasis. It was recommended that he have additional chemotherapy prior to attempting surgical resection. There has been some delay due to issues with his insurance coverage, but he returns now to begin a course of treatment with a FOLFIRI chemotherapy regimen. He has had a difficult recovery following the surgery in August. He presents today for follow-up after receiving his first cycle of FOLFIRI on 11/22/2021. He continues to have fatigue and requires a cane for walking. His appetite has been fair. He denies fever, chills, night sweats. He has mild exertional shortness of breath. No cough or chest pain. No nausea or vomiting. He has an ileostomy and does have been having some loose stools through that. He was treated last week with Bactrim DS for UTI and those symptoms are improving. He continues to have neuropathy in all extremities and is currently taking gabapentin 300 mg p.o. twice a day but can not tell that it is helping. Review Of Symptoms: See above. Past Medical History: Anxiety Depression Grade 2 diastolic dysfunction Rheumatoid arthritis Past Surgical History: Right shoulder tendon repair Tympanoplasty Right internal jugular port placement???Dr. Ross/[employer] in 2020 Covid vaccine #2 in 2020 Colonoscopy in 2020 Covid vaccine #1 in 2020 Allergies: Calamine Medicated Medications: buPROPion HCl ER (XL) 1 Tablet (of 300 mg) Tablet SR 24 HR Oral daily Gabapentin (600 mg) Tablet Oral t.i.d. Tamsulosin HCl 1 (0.4 mg) Capsule Oral at bedtime Family History: Mr. Bah's father at age 67: Pancreas Cancer. Father of pancreatic cancer at age 67. Mother still living at age 76. She has had treatment for colonic polyps and 2 of his 3 siblings have also been treated for colonic polyps. His paternal grandmother of colon cancer in his paternal grandfather had mesothelioma. His maternal grandmother is a colon cancer survivor. He has 2 children, twin daughters who are now age 17. Social History: Mr. Bah is . Mr. Bah has never smoked. He has no history of drinking. He is . He is a non-smoker. He does not drink alcohol. Physical Examination: Performed on Nov 29, 2021 15:19: Height - 75.00 in, Weight - 207.6 lbs (HIGH), BSA - 2.23 sq.m, BMI - 25.95, Temperature - 98.6 F, Pulse - 103 /min (HIGH), Respiration - 16 /min, BP - 112/63 mm(hg), O2 Sat - 98 %, Pain - 0, and Fatigue - 5. Performance Status: 1 - No physically strenuous activity, but ambulatory and able to carry out light or sedentary work (e.g. office work, light house work). (ECOG) Constitutional Alert, cooperative, oriented. Mood and affect appropriate. Appears close to chronological age. Appears weak and some pallor. Head Normocephalic; no scars. Respiratory Lungs are clear to auscultation without rhonchi or wheezing. Cardiovascular Regular rate and rhythm of heart without murmurs, gallops or rubs. Abdomen Non-tender, non-distended, no masses, ascites or hepatosplenomegaly. Good bowel sounds. No guarding or rebound tenderness. Extremities No edema Musculoskeletal No tenderness or swelling. Weakness requiring walking stick for ambulation Neurologic Neuropathy to hands and feet Psychiatric Alert and oriented times three. Coherent speech. Verbalizes understanding of our discussions today. Laboratory: Test performed on Nov 29, 2021 12:26 WBC 2.7 10 3/uL RBC 4.42 10 6/uL HGB 10.2 g/dL HCT 33.2 % MCV 75.1 fl MCH 23.1 pg MCHC 30.7 g/dL RDW 13.2 % Platelet Count 224 10 3/cmm MPV 8.8 fL Neutrophils 1.60 10 3/uL Lymphocytes 0.8 10 3/uL Monocytes 0.2 10 3/uL Eosinophils 0.1 10 3/uL Basophils 0.0 10 3/uL Neutrophil % 59.7 % Lymphocyte % 28.0 % Monocyte % 9.0 % Eosinophil % 2.2 % Basophils % 0.4 % NRBC % 0 % Test performed on Nov 22, 2021 10:42 Ua Color Yellow Ua Appearance Hazy Ua Glucose Norm Ua Bilirubin Neg Ua Ketones Negative Ua Specific Beatty 1.015 Ua Blood 2+ Ua pH 5 Ua Protein Neg Ua Nitrites Positive Ua Leukocyte Esterase 1+ Ua Micro: WBC 10-15 /hpf Urine Culture CC 100 CFU/ml Ua Micro: RBC 0-4 /hpf Ua Micro: Squam Epith Cells RARE /hpf Ua Micro: Bacteria 2+ /hpf Test performed on Nov 22, 2021 07:15 Sodium 140 mmol/L Potassium 3.8 mmol/L Chloride 104 mmol/L CO2 26 mmol/L Anion Gap 13.8 BUN 11 mg/dL Creatinine 1.0 mg/dL Cr Clearance (Est) 119.86 mL/min eGFR 80.4 mL/min Glucose 113 mg/dL Osmolality - Calculated 290 mOsm/kg Calcium 9.7 mg/dL Protein, Total 6.8 g/dL Albumin 3.8 g/dL Globulin 3.0 g/dL Bilirubin, Total 0.4 mg/dL ALT (SGPT) 23 U/L AST (SGOT) 29 U/L Alkaline Phosphatase 213 IU/L CEA 10.5 ng/mL Impression: 1. Well differentiated adenocarcinoma of the rectum, stage ANDERSON (yp T3, ypN2a, M1a), MSI stable. 2. Rheumatoid arthritis. 3. Grade 2 diastolic dysfunction. 4. Anxiety/depression. Plan: 1. Patient with well differentiated adenocarcinoma of the rectum. His mismatch repair analysis showed intact expression of mismatch repair proteins. By ultrasound his disease was stage at least T3, N1. His staging CT scans also showed a possible metastatic lesion in the right lobe of the liver. Additional lesions involving both lobes of the liver were too small to characterize and several small pulmonary nodules were also too small to characterize. With those findings he was recommended to undergo total neoadjuvant therapy. He began cycle 1 of modified FOLFOX on 02/28/2021. He tolerated it well and he was then able to continue treatment at 2-week intervals. As of 06/06/2021 he began his 8th and final cycle of treatment. He was then seen by Dr. Hogan, and he began radiation concurrently with Xeloda on 06/21/2021. He completed treatment on 07/25/2021 to a total dose of 5000 cGy administered in [address]. [address] abdomen/pelvis on 08/23/2021 showed progression in the right hepatic lobe metastatic lesion measuring 5.2 x 4.1 cm compared to 2.8 x 2.5 cm on the prior study. On 09/19/2021 he underwent robotic to open extended low anterior resection with loop ileostomy. Pathology showed well differentiated mucinous adenocarcinoma measuring 2.8 cm in greatest dimension. There was invasion through the muscularis propria into pericolorectal tissue. The radial margin was noted to be involved with invasive carcinoma, and there was involvement in 6 of 14 lymph nodes. Given the CT and operative findings, his final staging was ANDERSON (yp T3, ypN2a, M1a). By next generation sequencing, the tumor was noted to harbor a KRAS exon 2 mutation and a BRAF exon 15 mutation. He has been showing gradual recovery from the surgery. In the meantime, in September he had surgical consultation with Dr. Davi Pablo at [facility] and he has been recommended to undergo additional chemotherapy prior to attempting resection of the right hepatic lobe lesion. He had cycle 1 of FOLFIRI chemotherapy on 11/22/2021. This was admitted without the 5-FU bolus. As he may still be undergoing additional surgery, Avastin will not be administered with the regimen. Other than mild diarrhea and fatigue, he has tolerated the first cycle well. He will return to the clinic in 1 week with CBC and CMP. 2. He has persistent chemotherapy induced neuropathy. He was started on gabapentin 300 mg 3 times a day but due to him working during the day he can only tolerate taking it twice a day. He is not really had any positive results so we will increase the gabapentin to 600 mg twice a day. 3. He is currently on Bactrim DS for UTI and symptoms seem to be improving. 4. Iron studies were performed and iron was at 21% saturation at 7.6. He started oral iron last week. Will monitor. (Addendum) Signed By: Clau Duff N.P. <<Signature on File>>
[2021-12-06 08:28] LABS: Basophils % 0.4 %; Eosinophils % 1.1 %; Hematocrit 34.9 % (42.0-52.0); Hemoglobin 10.7 g/dL (11.7-16.6); Lymphocytes # 0.8 10^3/uL (0.8-4.8); Lymphocytes % 28.8 %; Mean Corpuscular HGB Conc 30.7 g/dL (30.0-36.0); Mean Corpuscular Hemoglobin 23.3 pg (28.0-34.0); Mean Corpuscular Volume 75.9 fl (80-94); Monocytes # 0.2 10^3/uL (0.2-0.9); Monocytes % 8.6 %; Neutrophils % 61.1 %; Nucleated Red Blood Cells % 0 %; Platelet Count 211 10^3/cmm (130-400); Red Cell Distribution Width 14.3 % (12.1-15.1); White Blood Count 2.8 10^3/uL (4.0-10.0)
[2021-12-06 08:49] LABS: Albumin Level 3.9 g/dL (3.5-5.2); Alkaline Phosphatase 160 IU/L (40-130); Anion Gap 11.2 (5-19); Aspartate Amino Transferase 22 U/L (0-40); Blood Urea Nitrogen 11 mg/dL (6-20); Calcium 9.5 mg/dL (8.5-10.5); Carbon Dioxide 26 mmol/L (22-29); Chloride 106 mmol/L (98-107); Globulin 3.3 g/dL (1.3-4.6); Glomerular Filtration Rate 90.8 mL/min (90-130); Glucose 100 mg/dL (65-115); Osmolality Calculated 287 mOsm/kg (285-295); Potassium 4.2 mmol/L (3.5-5.1); Sodium 139 mmol/L (136-145); Total Bilirubin 0.4 mg/dL (0.15-1.2); Total Protein 7.2 g/dL (6.6-8.7)
[2021-12-06 09:00] LABS: Alanine Aminotransferase 23 U/L (0-41)
--- NOTE | 2021-12-06 16:52 | ONC FU_ITS ---
Clau Duff Progress Note Patient: Neil Bah Unit #: [id number]: [id number] Dicatated By: Clau Duff N.P.Date of Visit:Dec 06, 2021 Onc MED Follow-up/Prog Note Chief Complaint: Rectal cancer. History of Present Illness: This is a 46 year-old man with well differentiated adenocarcinoma of the rectum, by clinical evaluation stage at least T3, N1, MSI stable. He has rheumatoid arthritis and last year he was found to have evidence of grade 2 diastolic dysfunction in the course of undergoing evaluation for exertional dyspnea. He had onset of rectal bleeding in November of this year. He underwent colonoscopy by Dr. Marino which apparently showed a benign rectal polyp and a more dominant rectal polyp/tumor, confirmed on biopsy to be adenomatous with focal high-grade dysplasia. He was referred to Dr. Ross in [place]. His flexible sigmoidoscopy on 02/02/2021 showed a malignant appearing tumor on the first rectal fold spanning 40 to 50% of the circumference of the rectal wall. There was central ulceration and a crater ring noted. Ultrasound was suggestive of T3 disease and also noted was a possible extra rectal round hypodense lymph node suggesting possible lymph node involvement. Biopsy of the mass showed well differentiated adenocarcinoma. Mismatch repair analysis by IHC showed intact expression of MMR proteins. His staging CT scans of the chest, abdomen, and pelvis on 02/02/2021 showed a 6 mm and 3 mm right upper lobe pulmonary nodules and a 5 mm left lower lobe pulmonary nodule, nonspecific, but metastatic disease was not excluded. The liver showed a 2.0 cm hypodense nodule with ill-defined margins in the anterior superior right lobe. The appearance was suspicious for metastasis. Multiple tiny hypodensities in the left and right lobes were too small to characterize. Also noted was a a 1.1 cm fluid density cyst in the left lobe. There was suspected 4.1 cm inhomogeneous mass in the posterior rectum. There were no enlarged lymph nodes identified. Dr. Estrada had seen him initially on 02/17/2021. With his disease being at least stage III, he was recommended to proceed with total neoadjuvant therapy. He then began cycle 1 of neoadjuvant chemotherapy with modified FOLFOX on 02/28/2021. He tolerated well and he was unable to continue treatment at 2-week intervals. As of 06/06/2021 he began his 8th and final cycle of treatment. He was then seen by Dr. Hogan, and he began radiation concurrently with Xeloda on 06/21/2021. He completed treatment on 07/25/2021 to a total dose of 5000 cGy administered in [address] of the abdomen/pelvis on 08/23/2021 showed progression in the right hepatic lobe metastatic lesion measuring 5.2 x 4.1 cm compared to 2.8 x 2.5 cm on the prior study. There are no other sites of metastatic involvement noted. On 09/19/2021 he underwent robotic to open extended low anterior resection with loop ileostomy. Pathology showed well differentiated mucinous adenocarcinoma measuring 2.8 cm in greatest dimension. There was invasion through the muscularis propria into pericolorectal tissue. The radial margin was noted to be involved with invasive carcinoma, and there was involvement in 6 of 14 lymph nodes. The treatment effect was consistent with partial response, score 2. Pathologic staging was ypT3, ypN2a. The tumor was again noted to be MSI stable. By next generation sequencing, it was noted to harbor a KRAS exon 2 mutation and a BRAF exon 15 mutation. Additional pathologic variants included exon 10 and exon 16 APC mutations and an SMAD4 mutation. His medical history is otherwise significant for rheumatoid arthritis, for which he has been on treatment with Xeljanz. During the course of evaluation for exertional dyspnea, he was found to have evidence of grade 2 diastolic dysfunction. He has had no other known cardiac disease. He also has anxiety/depression. He is a non-smoker. He has a positive family history for colonic polyps and for colon cancer. INTERIM HISTORY: In September 2021 he was seen by [address] Davi Pablo at [facility] in regard to further management of the liver metastasis. It was recommended that he have additional chemotherapy prior to attempting surgical resection. There has been some delay due to issues with his insurance coverage, but he returns now to begin a course of treatment with a FOLFIRI chemotherapy regimen. He presents today for follow-up. He states he has had some increased fatigue over the past couple of days. He denies fever, chills, night sweats. No mouth sores or sore throat. No shortness of breath, cough, chest pain. No nausea or vomiting. He does have some mild diarrhea through his colostomy at times. He has bilateral weakness lower extremities. No headache or dizziness. He requires a cane for assistance with ambulation. Review Of Symptoms: See above. Past Medical History: Anxiety Depression Grade 2 diastolic dysfunction Rheumatoid arthritis Past Surgical History: Right shoulder tendon repair Tympanoplasty Right internal jugular port placement???Dr. Ross/[facility] in 2020 Covid vaccine #2 in 2020 Colonoscopy in 2020 Covid vaccine #1 in 2020 Allergies: Calamine Medicated Medications: buPROPion HCl ER (XL) 1 Tablet (of 300 mg) Tablet SR 24 HR Oral daily Gabapentin (600 mg) Tablet Oral t.i.d. Tamsulosin HCl 1 (0.4 mg) Capsule Oral at bedtime Family History: Mr. Bah's father at age 67: Pancreas Cancer. Father of pancreatic cancer at age 67. Mother still living at age 76. She has had treatment for colonic polyps and 2 of his 3 siblings have also been treated for colonic polyps. His paternal grandmother of colon cancer in his paternal grandfather had mesothelioma. His maternal grandmother is a colon cancer survivor. He has 2 children, twin daughters who are now age 17. Social History: Mr. Bah is . Mr. Bah has never smoked. He has no history of drinking. He is . He is a non-smoker. He does not drink alcohol. Physical Examination: Performed on Dec 06, 2021 10:41: Height - 75.00 in, Weight - 209.6 lbs (HIGH), BSA - 2.24 sq.m, BMI - 26.20, Temperature - 97.4 F (LOW), Pulse - 82 /min, Respiration - 18 /min, BP - 102/65 mm(hg), O2 Sat - 99 %, Pain - 0, and Fatigue - 3. Performance Status: 1 - No physically strenuous activity, but ambulatory and able to carry out light or sedentary work (e.g. office work, light house work). (ECOG) Constitutional Alert, cooperative, oriented. Mood and affect appropriate. Appears close to chronological age. Well nourished. Well developed. Head Normocephalic; no scars. Respiratory Lungs are clear to auscultation without rhonchi or wheezing. Cardiovascular Regular rate and rhythm of heart without murmurs, gallops or rubs. Abdomen Non-tender, non-distended, no masses, ascites or hepatosplenomegaly. Good bowel sounds. No guarding or rebound tenderness. Extremities No visible deformities, no cyanosis, clubbing or edema. Pulses 3+ and equal bilaterally. Musculoskeletal No tenderness or swelling. Generalized weakness Psychiatric Alert and oriented times three. Coherent speech. Verbalizes understanding of our discussions today. Laboratory: Test performed on Dec 06, 2021 08:15 Sodium 139 mmol/L Potassium 4.2 mmol/L Chloride 106 mmol/L CO2 26 mmol/L Anion Gap 11.2 BUN 11 mg/dL Creatinine 0.9 mg/dL Cr Clearance (Est) 136.6000 mL/min eGFR 90.8 mL/min Glucose 100 mg/dL Osmolality - Calculated 287 mOsm/kg Calcium 9.5 mg/dL Protein, Total 7.2 g/dL Albumin 3.9 g/dL Globulin 3.3 g/dL Bilirubin, Total 0.4 mg/dL ALT (SGPT) 23 U/L AST (SGOT) 22 U/L Alkaline Phosphatase 160 IU/L WBC 2.8 10 3/uL RBC 4.60 10 6/uL HGB 10.7 g/dL HCT 34.9 % MCV 75.9 fl MCH 23.3 pg MCHC 30.7 g/dL RDW 14.3 % Platelet Count 211 10 3/cmm MPV 9.0 fL Neutrophils 1.70 10 3/uL Lymphocytes 0.8 10 3/uL Monocytes 0.2 10 3/uL Eosinophils 0.0 10 3/uL Basophils 0.0 10 3/uL Neutrophil % 61.1 % Lymphocyte % 28.8 % Monocyte % 8.6 % Eosinophil % 1.1 % Basophils % 0.4 % NRBC % 0 % Test performed on Nov 22, 2021 10:42 Ua Color Yellow Ua Appearance Hazy Ua Glucose Norm Ua Bilirubin Neg Ua Ketones Negative Ua Specific Blanco 1.015 Ua Blood 2+ Ua pH 5 Ua Protein Neg Ua Nitrites Positive Ua Leukocyte Esterase 1+ Ua Micro: WBC 10-15 /hpf Urine Culture CC 100 CFU/ml Ua Micro: RBC 0-4 /hpf Ua Micro: Squam Epith Cells RARE /hpf Ua Micro: Bacteria 2+ /hpf Test performed on Nov 22, 2021 07:15 CEA 10.5 ng/mL Impression: 1. Well differentiated adenocarcinoma of the rectum, stage ANDERSON (yp T3, ypN2a, M1a), MSI stable. 2. Rheumatoid arthritis. 3. Grade 2 diastolic dysfunction. 4. Anxiety/depression. Plan: 1. Patient with well differentiated adenocarcinoma of the rectum. His mismatch repair analysis showed intact expression of mismatch repair proteins. By ultrasound his disease was stage at least T3, N1. His staging CT scans also showed a possible metastatic lesion in the right lobe of the liver. Additional lesions involving both lobes of the liver were too small to characterize and several small pulmonary nodules were also too small to characterize. With those findings he was recommended to undergo total neoadjuvant therapy. He began cycle 1 of modified FOLFOX on 02/28/2021. He tolerated it well and he was then able to continue treatment at 2-week intervals. As of 06/06/2021 he began his 8th and final cycle of treatment. He was then seen by Dr. Hogan, and he began radiation concurrently with Xeloda on 06/21/2021. He completed treatment on 07/25/2021 to a total dose of 5000 cGy administered in [address]. [address] abdomen/pelvis on 08/23/2021 showed progression in the right hepatic lobe metastatic lesion measuring 5.2 x 4.1 cm compared to 2.8 x 2.5 cm on the prior study. On 09/19/2021 he underwent robotic to open extended low anterior resection with loop ileostomy. Pathology showed well differentiated mucinous adenocarcinoma measuring 2.8 cm in greatest dimension. There was invasion through the muscularis propria into pericolorectal tissue. The radial margin was noted to be involved with invasive carcinoma, and there was involvement in 6 of 14 lymph nodes. Given the CT and operative findings, his final staging was ANDERSON (yp T3, ypN2a, M1a). By next generation sequencing, the tumor was noted to harbor a KRAS exon 2 mutation and a BRAF exon 15 mutation. He has been showing gradual recovery from the surgery. In the meantime, in September he had surgical consultation with Dr. Davi Pablo at [facility] and he has been recommended to undergo additional chemotherapy prior to attempting resection of the right hepatic lobe lesion. He had cycle 1 of FOLFIRI chemotherapy on 11/22/2021. This was admitted without the 5-FU bolus. As he may still be undergoing additional surgery, Avastin will not be administered with the regimen. Today's labs indicate neutropenia with a WBC of 2.8 and neutrophil count 1.70. We will administer Neupogen x2 days. Patient will return next week and if labs are stable we will administer next dose of FOLFIRI without the 5-FU bolus and had a 20% decrease. We will then attempt approval for Neulasta to be given after next treatment 2. He has persistent chemotherapy induced neuropathy. He currently takes gabapentin 600mg bid. 3. Patient taking oral iron for iron deficiency anemia we will continue to monitor. Signed By: Clau Duff N.P. <<Signature on File>>
[2021-12-13 08:46] LABS: Basophils # 0.1 10^3/uL (0.0-0.1); Basophils % 1.1 %; Eosinophils # 0.1 10^3/uL (0.0-0.8); Eosinophils % 1.6 %; Hemoglobin 11.2 g/dL (11.7-16.6); Lymphocytes % 17.3 %; Mean Corpuscular HGB Conc 31.1 g/dL (30.0-36.0); Mean Corpuscular Hemoglobin 23.7 pg (28.0-34.0); Mean Corpuscular Volume 76.1 fl (80-94); Mean Platelet Volume 9.2 fL (7.4-10.4); Monocytes # 0.7 10^3/uL (0.2-0.9); Monocytes % 12.9 %; Neutrophils # 3.49 10^3/uL (1.8-7.7); Neutrophils % 61.6 %; Nucleated Red Blood Cells % 0 %; Platelet Count 189 10^3/cmm (130-400); Red Blood Count 4.73 10^6/uL (4.1-5.3); Red Cell Distribution Width 15.5 % (12.1-15.1); White Blood Count 5.7 10^3/uL (4.0-10.0)
[2021-12-13 09:08] LABS: Alanine Aminotransferase 29 U/L (0-41); Alkaline Phosphatase 162 IU/L (40-130); Anion Gap 12.1 (5-19); Aspartate Amino Transferase 35 U/L (0-40); Blood Urea Nitrogen 9 mg/dL (6-20); Calcium 9.5 mg/dL (8.5-10.5); Carbon Dioxide 27 mmol/L (22-29); Chloride 101 mmol/L (98-107); Globulin 2.9 g/dL (1.3-4.6); Glomerular Filtration Rate 80.4 mL/min (90-130); Glucose 95 mg/dL (65-115); Osmolality Calculated 280 mOsm/kg (285-295); Potassium 4.1 mmol/L (3.5-5.1); Sodium 136 mmol/L (136-145); Total Bilirubin 0.7 mg/dL (0.15-1.2); Total Protein 6.9 g/dL (6.6-8.7)
[2021-12-13 09:25] LABS: Slide Review Slide Review Perform
[2021-12-13] MEDS: dextrose 5% 250 ML 75 ML IV (10:46)
[2021-12-13] MEDS: ondansetron 2 mg/ML SDV 2 mL 8 MG IVP (10:48)
[2021-12-13 13:20] LABS: Add Urine Microscopic? NO; Charge for UA Resulting for Rev
[2021-12-13 13:59] LABS: Bilirubin Urine Neg (Negative); Blood Urine Neg (Negative); Glucose Urine UA Norm (Normal); Ketones Urine Negative (Negative); Leukocyte Esterase Urine Negative (Negative); Nitrate Urine Negative (Negative); Protein Urine Neg (Negative); Specific Gravity, Urine 1.005 (1.005-1.030); Urine Appearance Clear (CLEAR); Urine Color Yellow (Yellow); Urobilinogen Urine Norm (Negative); pH Urine 7 (5-7)
--- NOTE | 2021-12-20 15:47 | ONC FU_ITS ---
Clau Duff Progress Note Patient: Neil Bah Unit #: [id number]: 1975 Dicatated By: Clau Duff N.P.Date of Visit:Dec 13, 2021 Onc MED Follow-up/Prog Note Chief Complaint: Rectal cancer. History of Present Illness: This is a 46 year-old man with well differentiated adenocarcinoma of the rectum, by clinical evaluation stage at least T3, N1, MSI stable. He has rheumatoid arthritis and last year he was found to have evidence of grade 2 diastolic dysfunction in the course of undergoing evaluation for exertional dyspnea. He had onset of rectal bleeding in November of this year. He underwent colonoscopy by Dr. Marino which apparently showed a benign rectal polyp and a more dominant rectal polyp/tumor, confirmed on biopsy to be adenomatous with focal high-grade dysplasia. He was referred to Dr. Ross in [place]. His flexible sigmoidoscopy on 02/02/2021 showed a malignant appearing tumor on the first rectal fold spanning 40 to 50% of the circumference of the rectal wall. There was central ulceration and a crater ring noted. Ultrasound was suggestive of T3 disease and also noted was a possible extra rectal round hypodense lymph node suggesting possible lymph node involvement. Biopsy of the mass showed well differentiated adenocarcinoma. Mismatch repair analysis by IHC showed intact expression of MMR proteins. His staging CT scans of the chest, abdomen, and pelvis on 02/02/2021 showed a 6 mm and 3 mm right upper lobe pulmonary nodules and a 5 mm left lower lobe pulmonary nodule, nonspecific, but metastatic disease was not excluded. The liver showed a 2.0 cm hypodense nodule with ill-defined margins in the anterior superior right lobe. The appearance was suspicious for metastasis. Multiple tiny hypodensities in the left and right lobes were too small to characterize. Also noted was a a 1.1 cm fluid density cyst in the left lobe. There was suspected 4.1 cm inhomogeneous mass in the posterior rectum. There were no enlarged lymph nodes identified. Dr. Estrada had seen him initially on 02/17/2021. With his disease being at least stage III, he was recommended to proceed with total neoadjuvant therapy. He then began cycle 1 of neoadjuvant chemotherapy with modified FOLFOX on 02/28/2021. He tolerated well and he was unable to continue treatment at 2-week intervals. As of 06/06/2021 he began his 8th and final cycle of treatment. He was then seen by Dr. Hogan, and he began radiation concurrently with Xeloda on 06/21/2021. He completed treatment on 07/25/2021 to a total dose of 5000 cGy administered in [address] of the abdomen/pelvis on 08/23/2021 showed progression in the right hepatic lobe metastatic lesion measuring 5.2 x 4.1 cm compared to 2.8 x 2.5 cm on the prior study. There are no other sites of metastatic involvement noted. On 09/19/2021 he underwent robotic to open extended low anterior resection with loop ileostomy. Pathology showed well differentiated mucinous adenocarcinoma measuring 2.8 cm in greatest dimension. There was invasion through the muscularis propria into pericolorectal tissue. The radial margin was noted to be involved with invasive carcinoma, and there was involvement in 6 of 14 lymph nodes. The treatment effect was consistent with partial response, score 2. Pathologic staging was ypT3, ypN2a. The tumor was again noted to be MSI stable. By next generation sequencing, it was noted to harbor a KRAS exon 2 mutation and a BRAF exon 15 mutation. Additional pathologic variants included exon 10 and exon 16 APC mutations and an SMAD4 mutation. His medical history is otherwise significant for rheumatoid arthritis, for which he has been on treatment with Xeljanz. During the course of evaluation for exertional dyspnea, he was found to have evidence of grade 2 diastolic dysfunction. He has had no other known cardiac disease. He also has anxiety/depression. He is a non-smoker. He has a positive family history for colonic polyps and for colon cancer. INTERIM HISTORY: In September 2021 he was seen by Dr. Davi Pablo at [facility] in regard to further management of the liver metastasis. It was recommended that he have additional chemotherapy prior to attempting surgical resection. There has been some delay due to issues with his insurance coverage, but he returns now to begin a course of treatment with a FOLFIRI chemotherapy regimen. He presents today for follow-up. He continues to have some mild fatigue. His appetite has been good. No fever, chills, night sweats. No sinus drainage or congestion. No shortness of breath, cough, chest pain. No nausea or vomiting. He has loose stool through his colostomy. No abdominal pain. He feels like he has some mild urinary retention. He is currently on Flomax 0.4 mg daily. He continues to have neuropathic pain in his bilateral lower extremities. No headache or dizziness. Review Of Symptoms:See above. Past Medical History: Anxiety Depression Grade 2 diastolic dysfunction Rheumatoid arthritis Past Surgical History: Right shoulder tendon repair Tympanoplasty Right internal jugular port placement???Dr. Ross/[facility] in 2020 Covid vaccine #2 in 2020 Colonoscopy in 2020 Covid vaccine #1 in 2020 Allergies: Calamine Medicated Medications: buPROPion HCl ER (XL) 1 Tablet (of 300 mg) Tablet SR 24 HR Oral daily Gabapentin (600 mg) Tablet Oral t.i.d. Tamsulosin HCl 1 (0.4 mg) Capsule Oral at bedtime Family History: Mr. Bah's father at age 67: Pancreas Cancer. Father of pancreatic cancer at age 67. Mother still living at age 76. She has had treatment for colonic polyps and 2 of his 3 siblings have also been treated for colonic polyps. His paternal grandmother of colon cancer in his paternal grandfather had mesothelioma. His maternal grandmother is a colon cancer survivor. He has 2 children, twin daughters who are now age 17. Social History: Mr. Bah is . Mr. Bah has never smoked. He has no history of drinking. He is . He is a non-smoker. He does not drink alcohol. Physical Examination: Performed on Dec 13, 2021 10:17: Height - 75.00 in, Weight - 212.8 lbs (HIGH), BSA - 2.25 sq.m, BMI - 26.60, Temperature - 98.6 F, Pulse - 106 /min (HIGH), Respiration - 18 /min, BP - 117/70 mm(hg), O2 Sat - 95 % (LOW), Pain - 0, and Fatigue - 3. Performance Status: 1 - No physically strenuous activity, but ambulatory and able to carry out light or sedentary work (e.g. office work, light house work). (ECOG) Constitutional Alert, cooperative, oriented. Mood and affect appropriate. Appears close to chronological age. Well nourished. Well developed. Head Normocephalic; no scars. Respiratory Lungs are clear to auscultation without rhonchi or wheezing. Cardiovascular Regular rate and rhythm of heart without murmurs, gallops or rubs. Abdomen Non-tender, non-distended, no masses, ascites or hepatosplenomegaly. Good bowel sounds. No guarding or rebound tenderness. Extremities No edema Musculoskeletal Generalized weakness Psychiatric Alert and oriented times three. Coherent speech. Verbalizes understanding of our discussions today. Laboratory: Test performed on Dec 13, 2021 12:24 Ua Color Yellow Ua Appearance Clear Ua Glucose Norm Ua Bilirubin Neg Ua Ketones Negative Ua Specific [place] 1.005 Ua Blood Neg Ua pH 7 Ua Protein Neg Ua Nitrites Negative Ua Leukocyte Esterase Negative Test performed on Dec 13, 2021 08:30 Sodium 136 mmol/L Potassium 4.1 mmol/L Chloride 101 mmol/L CO2 27 mmol/L Anion Gap 12.1 BUN 9 mg/dL Creatinine 1.0 mg/dL Cr Clearance (Est) 122.9400 mL/min eGFR 80.4 mL/min Glucose 95 mg/dL Osmolality - Calculated 280 mOsm/kg Calcium 9.5 mg/dL Protein, Total 6.9 g/dL Albumin 4.0 g/dL Globulin 2.9 g/dL Bilirubin, Total 0.7 mg/dL ALT (SGPT) 29 U/L AST (SGOT) 35 U/L Alkaline Phosphatase 162 IU/L WBC 5.7 10 3/uL RBC 4.73 10 6/uL HGB 11.2 g/dL HCT 36.0 % MCV 76.1 fl MCH 23.7 pg MCHC 31.1 g/dL RDW 15.5 % Platelet Count 189 10 3/cmm MPV 9.2 fL Neutrophils 3.49 10 3/uL Lymphocytes 1.0 10 3/uL Monocytes 0.7 10 3/uL Eosinophils 0.1 10 3/uL Basophils 0.1 10 3/uL Neutrophil % 61.6 % Lymphocyte % 17.3 % Monocyte % 12.9 % Eosinophil % 1.6 % Basophils % 1.1 % NRBC % 0 % CBC Slide Review Slide Review Perform SLIDE REVIEW AGREES WITH AUTOMATED RESULTS ST Test performed on Nov 22, 2021 10:42 Ua Micro: WBC 10-15 /hpf Urine Culture CC 100 CFU/ml Ua Micro: RBC 0-4 /hpf Ua Micro: Squam Epith Cells RARE /hpf Ua Micro: Bacteria 2+ /hpf Test performed on Nov 22, 2021 07:15 CEA 10.5 ng/mL Impression: 1. Well differentiated adenocarcinoma of the rectum, stage ANDERSON (yp T3, ypN2a, M1a), MSI stable. 2. Rheumatoid arthritis. 3. Grade 2 diastolic dysfunction. 4. Anxiety/depression. Plan: 1. Patient with well differentiated adenocarcinoma of the rectum. His mismatch repair analysis showed intact expression of mismatch repair proteins. By ultrasound his disease was stage at least T3, N1. His staging CT scans also showed a possible metastatic lesion in the right lobe of the liver. Additional lesions involving both lobes of the liver were too small to characterize and several small pulmonary nodules were also too small to characterize. With those findings he was recommended to undergo total neoadjuvant therapy. He began cycle 1 of modified FOLFOX on 02/28/2021. He tolerated it well and he was then able to continue treatment at 2-week intervals. As of 06/06/2021 he began his 8th and final cycle of treatment. He was then seen by Dr. Hogan, and he began radiation concurrently with Xeloda on 06/21/2021. He completed treatment on 07/25/2021 to a total dose of 5000 cGy administered in [address]. [address] abdomen/pelvis on 08/23/2021 showed progression in the right hepatic lobe metastatic lesion measuring 5.2 x 4.1 cm compared to 2.8 x 2.5 cm on the prior study. On 09/19/2021 he underwent robotic to open extended low anterior resection with loop ileostomy. Pathology showed well differentiated mucinous adenocarcinoma measuring 2.8 cm in greatest dimension. There was invasion through the muscularis propria into pericolorectal tissue. The radial margin was noted to be involved with invasive carcinoma, and there was involvement in 6 of 14 lymph nodes. Given the CT and operative findings, his final staging was ANDERSON (yp T3, ypN2a, M1a). By next generation sequencing, the tumor was noted to harbor a KRAS exon 2 mutation and a BRAF exon 15 mutation. He has been showing gradual recovery from the surgery. In the meantime, in September he had surgical consultation with Dr. Davi Pablo at [facility] and he has been recommended to undergo additional chemotherapy prior to attempting resection of the right hepatic lobe lesion. He had cycle 1 of FOLFIRI chemotherapy on 11/22/2021. This was admitted without the 5-FU bolus. As he may still be undergoing additional surgery, Avastin will not be administered with the regimen. Last week, labs indicated neutropenia with a WBC of 2.8 and neutrophil count 1.70. Neupogen was administered x2 days. Labs today have improved WBC at 5.7, hemoglobin 11.2, hematocrit 36.0, platelets 189,000, and neutrophils at 3.49. We will administer next dose of FOLFIRI without the 5-FU bolus and had a 20% decrease. Plan to administer Neulasta after treatment. 2. He has persistent chemotherapy induced neuropathy. He currently takes gabapentin 600mg bid. 3. Patient taking oral iron for iron deficiency anemia we will continue to monitor. 4. Patient experiencing some urinary retention/hesitancy we will increase his Flomax to 0.8 mg and monitor for improvement. Signed By: Clau Duff N.P. <<Signature on File>>
[2021-12-27 08:19] LABS: Basophils % 0.7 %; Eosinophils % 0.9 %; Hematocrit 36.1 % (42.0-52.0); Lymphocytes # 0.9 10^3/uL (0.8-4.8); Lymphocytes % 20.1 %; Mean Corpuscular HGB Conc 30.5 g/dL (30.0-36.0); Mean Corpuscular Hemoglobin 23.5 pg (28.0-34.0); Mean Platelet Volume 9.1 fL (7.4-10.4); Monocytes # 0.3 10^3/uL (0.2-0.9); Monocytes % 6.5 %; Neutrophils # 3.05 10^3/uL (1.8-7.7); Neutrophils % 70.4 %; Nucleated Red Blood Cells % 0 %; Platelet Count 263 10^3/cmm (130-400); Red Blood Count 4.69 10^6/uL (4.1-5.3); Red Cell Distribution Width 17.1 % (12.1-15.1); White Blood Count 4.3 10^3/uL (4.0-10.0)
[2021-12-27 09:39] LABS: Carcinoembryonic Antigen 5.4 ng/mL (0.0-4.7)
[2021-12-27 10:01] LABS: Alanine Aminotransferase 33 U/L (0-41); Albumin Level 3.9 g/dL (3.5-5.2); Alkaline Phosphatase 175 IU/L (40-130); Anion Gap 14.1 (5-19); Aspartate Amino Transferase 24 U/L (0-40); Blood Urea Nitrogen 9 mg/dL (6-20); Calcium 9.4 mg/dL (8.5-10.5); Carbon Dioxide 25 mmol/L (22-29); Chloride 104 mmol/L (98-107); Globulin 2.9 g/dL (1.3-4.6); Glomerular Filtration Rate 90.8 mL/min (90-130); Glucose 91 mg/dL (65-115); Osmolality Calculated 286 mOsm/kg (285-295); Potassium 4.1 mmol/L (3.5-5.1); Sodium 139 mmol/L (136-145); Total Bilirubin 0.3 mg/dL (0.15-1.2); Total Protein 6.8 g/dL (6.6-8.7)
[2021-12-27] MEDS: dextrose 5% 250 ML 75 ML IV (11:00)
[2021-12-27] MEDS: ondansetron 2 mg/ML SDV 2 mL 8 MG IVP (11:00)
--- NOTE | 2022-01-01 08:27 | ONC FU_ITS ---
Clau Duff Progress Note Patient: Neil Bah Unit #: [id number]: 1975 Dicatated By: Clau Duff N.P.Date of Visit:Dec 27, 2021 Onc MED Follow-up/Prog Note Chief Complaint: Rectal cancer. History of Present Illness: This is a 46 year-old man with well differentiated adenocarcinoma of the rectum, by clinical evaluation stage at least T3, N1, MSI stable. He has rheumatoid arthritis and last year he was found to have evidence of grade 2 diastolic dysfunction in the course of undergoing evaluation for exertional dyspnea. He had onset of rectal bleeding in November of this year. He underwent colonoscopy by Dr. Marino which apparently showed a benign rectal polyp and a more dominant rectal polyp/tumor, confirmed on biopsy to be adenomatous with focal high-grade dysplasia. He was referred to Dr. Ross in [place]. His flexible sigmoidoscopy on 02/02/2021 showed a malignant appearing tumor on the first rectal fold spanning 40 to 50% of the circumference of the rectal wall. There was central ulceration and a crater ring noted. Ultrasound was suggestive of T3 disease and also noted was a possible extra rectal round hypodense lymph node suggesting possible lymph node involvement. Biopsy of the mass showed well differentiated adenocarcinoma. Mismatch repair analysis by IHC showed intact expression of MMR proteins. His staging CT scans of the chest, abdomen, and pelvis on 02/02/2021 showed a 6 mm and 3 mm right upper lobe pulmonary nodules and a 5 mm left lower lobe pulmonary nodule, nonspecific, but metastatic disease was not excluded. The liver showed a 2.0 cm hypodense nodule with ill-defined margins in the anterior superior right lobe. The appearance was suspicious for metastasis. Multiple tiny hypodensities in the left and right lobes were too small to characterize. Also noted was a a 1.1 cm fluid density cyst in the left lobe. There was suspected 4.1 cm inhomogeneous mass in the posterior rectum. There were no enlarged lymph nodes identified. Dr. Estrada had seen him initially on 02/17/2021. With his disease being at least stage III, he was recommended to proceed with total neoadjuvant therapy. He then began cycle 1 of neoadjuvant chemotherapy with modified FOLFOX on 02/28/2021. He tolerated well and he was unable to continue treatment at 2-week intervals. As of 06/06/2021 he began his 8th and final cycle of treatment. He was then seen by Dr. Hogan, and he began radiation concurrently with Xeloda on 06/21/2021. He completed treatment on 07/25/2021 to a total dose of 5000 cGy administered in [address] of the abdomen/pelvis on 08/23/2021 showed progression in the right hepatic lobe metastatic lesion measuring 5.2 x 4.1 cm compared to 2.8 x 2.5 cm on the prior study. There are no other sites of metastatic involvement noted. On 09/19/2021 he underwent robotic to open extended low anterior resection with loop ileostomy. Pathology showed well differentiated mucinous adenocarcinoma measuring 2.8 cm in greatest dimension. There was invasion through the muscularis propria into pericolorectal tissue. The radial margin was noted to be involved with invasive carcinoma, and there was involvement in 6 of 14 lymph nodes. The treatment effect was consistent with partial response, score 2. Pathologic staging was ypT3, ypN2a. The tumor was again noted to be MSI stable. By next generation sequencing, it was noted to harbor a KRAS exon 2 mutation and a BRAF exon 15 mutation. Additional pathologic variants included exon 10 and exon 16 APC mutations and an SMAD4 mutation. His medical history is otherwise significant for rheumatoid arthritis, for which he has been on treatment with Xeljanz. During the course of evaluation for exertional dyspnea, he was found to have evidence of grade 2 diastolic dysfunction. He has had no other known cardiac disease. He also has anxiety/depression. He is a non-smoker. He has a positive family history for colonic polyps and for colon cancer. INTERIM HISTORY: In September 2021 he was seen by [address] Davi Pablo at [facility] in regard to further management of the liver metastasis. It was recommended that he have additional chemotherapy prior to attempting surgical resection. There has been some delay due to issues with his insurance coverage, but he returns now to begin a course of treatment with a FOLFIRI chemotherapy regimen. Patient presents today for follow-up. He is tolerating his treatments well with FOLFIRI. He continues to have some mild fatigue. His appetite has been good. He denies sinus drainage or sore throat. No mouth sores. No shortness of breath, cough, chest pain. No GI or problems. He continues to have neuropathic pain in his lateral extremities. He uses a sick for ambulation. He denies headache or dizziness. Review Of Symptoms: See above. Past Medical History: Anxiety Depression Grade 2 diastolic dysfunction Rheumatoid arthritis Past Surgical History: Right shoulder tendon repair Tympanoplasty Right internal jugular port placement???Dr. Ross/[facility] in 2020 Covid vaccine #2 in 2020 Colonoscopy in 2020 Covid vaccine #1 in 2020 Allergies: Calamine Medicated Medications: buPROPion HCl ER (XL) 1 Tablet (of 300 mg) Tablet SR 24 HR Oral daily Gabapentin (600 mg) Tablet Oral t.i.d. Tamsulosin HCl 1 (0.4 mg) Capsule Oral at bedtime Family History: Mr. Bah's father at age 67: Pancreas Cancer. Father of pancreatic cancer at age 67. Mother still living at age 76. She has had treatment for colonic polyps and 2 of his 3 siblings have also been treated for colonic polyps. His paternal grandmother of colon cancer in his paternal grandfather had mesothelioma. His maternal grandmother is a colon cancer survivor. He has 2 children, twin daughters who are now age 17. Social History: Mr. Bah is . Mr. Bah has never smoked. He has no history of drinking. He is . He is a non-smoker. He does not drink alcohol. Physical Examination: Performed on Dec 27, 2021 09:43: Height - 75.00 in, Weight - 211.4 lbs (HIGH), BSA - 2.25 sq.m, BMI - 26.42, Temperature - 97.8 F (LOW), Pulse - 86 /min, Respiration - 16 /min, BP - 101/62 mm(hg), O2 Sat - 99 %, Pain - 0, Fatigue - 3, Performed on Dec 27, 2021 08:03: Height - 75.00 in, Weight - 210.6 lbs (LOW), BSA - 2.24 sq.m, and BMI - 26.32. Performance Status: 1 - No physically strenuous activity, but ambulatory and able to carry out light or sedentary work (e.g. office work, light house work). (ECOG) Constitutional Alert, cooperative, oriented. Mood and affect appropriate. Appears close to chronological age. Well nourished. Well developed. Head Normocephalic; no scars. Respiratory Lungs are clear to auscultation without rhonchi or wheezing. Cardiovascular Regular rate and rhythm of heart without murmurs, gallops or rubs. Abdomen Non-tender, non-distended, no masses, ascites or hepatosplenomegaly. Good bowel sounds. No guarding or rebound tenderness. Extremities No edema Musculoskeletal No tenderness or swelling, normal range of motion.Generalized weakness Psychiatric Alert and oriented times three. Coherent speech. Verbalizes understanding of our discussions today. Laboratory: Test performed on Dec 27, 2021 08:10 Sodium 139 mmol/L Potassium 4.1 mmol/L Chloride 104 mmol/L CO2 25 mmol/L Anion Gap 14.1 BUN 9 mg/dL Creatinine 0.9 mg/dL Cr Clearance (Est) 136.6000 mL/min eGFR 90.8 mL/min Glucose 91 mg/dL Osmolality - Calculated 286 mOsm/kg Calcium 9.4 mg/dL Protein, Total 6.8 g/dL Albumin 3.9 g/dL Globulin 2.9 g/dL Bilirubin, Total 0.3 mg/dL ALT (SGPT) 33 U/L AST (SGOT) 24 U/L Alkaline Phosphatase 175 IU/L WBC 4.3 10 3/uL RBC 4.69 10 6/uL HGB 11.0 g/dL HCT 36.1 % MCV 77.0 fl MCH 23.5 pg MCHC 30.5 g/dL RDW 17.1 % Platelet Count 263 10 3/cmm MPV 9.1 fL Neutrophils 3.05 10 3/uL Lymphocytes 0.9 10 3/uL Monocytes 0.3 10 3/uL Eosinophils 0.0 10 3/uL Basophils 0.0 10 3/uL Neutrophil % 70.4 % Lymphocyte % 20.1 % Monocyte % 6.5 % Eosinophil % 0.9 % Basophils % 0.7 % NRBC % 0 % CEA 5.4 ng/mL Test performed on Dec 13, 2021 12:24 Ua Color Yellow Ua Appearance Clear Ua Glucose Norm Ua Bilirubin Neg Ua Ketones Negative Ua Specific [place] 1.005 Ua Blood Neg Ua pH 7 Ua Protein Neg Ua Nitrites Negative Ua Leukocyte Esterase Negative Test performed on Dec 13, 2021 08:30 CBC Slide Review Slide Review Perform SLIDE REVIEW AGREES WITH AUTOMATED RESULTS ST Test performed on Nov 22, 2021 10:42 Ua Micro: WBC 10-15 /hpf Urine Culture CC 100 CFU/ml Ua Micro: RBC 0-4 /hpf Ua Micro: Squam Epith Cells RARE /hpf Ua Micro: Bacteria 2+ /hpf Impression: 1. Well differentiated adenocarcinoma of the rectum, stage ANDERSON (yp T3, ypN2a, M1a), MSI stable. 2. Rheumatoid arthritis. 3. Grade 2 diastolic dysfunction. 4. Anxiety/depression. Plan: 1. Patient with well differentiated adenocarcinoma of the rectum. His mismatch repair analysis showed intact expression of mismatch repair proteins. By ultrasound his disease was stage at least T3, N1. His staging CT scans also showed a possible metastatic lesion in the right lobe of the liver. Additional lesions involving both lobes of the liver were too small to characterize and several small pulmonary nodules were also too small to characterize. With those findings he was recommended to undergo total neoadjuvant therapy. He began cycle 1 of modified FOLFOX on 02/28/2021. He tolerated it well and he was then able to continue treatment at 2-week intervals. As of 06/06/2021 he began his 8th and final cycle of treatment. He was then seen by Dr. Hogan, and he began radiation concurrently with Xeloda on 06/21/2021. He completed treatment on 07/25/2021 to a total dose of 5000 cGy administered in [address]. [address] abdomen/pelvis on 08/23/2021 showed progression in the right hepatic lobe metastatic lesion measuring 5.2 x 4.1 cm compared to 2.8 x 2.5 cm on the prior study. On 09/19/2021 he underwent robotic to open extended low anterior resection with loop ileostomy. Pathology showed well differentiated mucinous adenocarcinoma measuring 2.8 cm in greatest dimension. There was invasion through the muscularis propria into pericolorectal tissue. The radial margin was noted to be involved with invasive carcinoma, and there was involvement in 6 of 14 lymph nodes. Given the CT and operative findings, his final staging was ANDERSON (yp T3, ypN2a, M1a). By next generation sequencing, the tumor was noted to harbor a KRAS exon 2 mutation and a BRAF exon 15 mutation. He has been showing gradual recovery from the surgery. In the meantime, in September he had surgical consultation with Dr. Davi Pablo at [facility] and he has been recommended to undergo additional chemotherapy prior to attempting resection of the right hepatic lobe lesion. He had cycle 1 of FOLFIRI chemotherapy on 11/22/2021. This was admitted without the 5-FU bolus. As he may still be undergoing additional surgery, Avastin will not be administered with the regimen. Last week, labs indicated neutropenia with a WBC of 2.8 and neutrophil count 1.70. Neupogen was administered x2 days. Patient has been tolerating FOLFIRI treatment with Neulasta support. He will receive cycle 3 today and return to the clinic in 2 weeks with CBC, CMP. 2. He has persistent chemotherapy induced neuropathy. He currently takes gabapentin 600mg bid. 3. Patient taking oral iron for iron deficiency anemia we will continue to monitor. 4. Patient experiencing some urinary retention/hesitancy he increased his Flomax to 0.8 mg and had some improvement Signed By: Clau Duff N.P. <<Signature on File>>
== END 2021-12-28 23:59 | disposition home or self-care (01) ==
LOC: ONCMED 06:47
PROVIDERS: Internal Medicine Medical Oncology; PCP Internal Medicine; Visit Provider Nurse Practitioner Family
DX: Z51.11 Encounter for antineoplastic chemotherapy (principal); C20 Malignant neoplasm of rectum; M06.9 Rheumatoid arthritis, unspecified; I51.89 Other ill-defined heart diseases; F41.9 Anxiety disorder, unspecified; F32.A Depression, unspecified; Z79.899 Other long term (current) drug therapy
CPT/HCPCS: 36591; 80053; 81003; 82378; 85025; 96367; 96368; 96372; 96375; 96413; 96415; 96416; 96523; 99214; 99215; J0461; J0640; J1100; J1442; J2405; J2505; J9190; J9206

== ENCOUNTER 2022-01-24 06:50 | Outpatient (RCR) | payer BC, SELFPAY ==
[2021-12-29] MEDS: pegfilgrastim-bmez 6 mg/0.6 mL SYR SUBCUT (11:56)
[2022-01-09 08:34] LABS: Basophils % 0.7 %; Eosinophils % 0.7 %; Hematocrit 37.1 % (42.0-52.0); Hemoglobin 11.6 g/dL (11.7-16.6); Lymphocytes # 0.9 10^3/uL (0.8-4.8); Lymphocytes % 18.7 %; Mean Corpuscular HGB Conc 31.3 g/dL (30.0-36.0); Mean Corpuscular Hemoglobin 24.3 pg (28.0-34.0); Mean Corpuscular Volume 77.8 fl (80-94); Mean Platelet Volume 8.9 fL (7.4-10.4); Monocytes # 0.3 10^3/uL (0.2-0.9); Monocytes % 7.2 %; Neutrophils # 3.26 10^3/uL (1.8-7.7); Neutrophils % 70.7 %; Nucleated Red Blood Cells % 0 %; Platelet Count 142 10^3/cmm (130-400); Red Blood Count 4.77 10^6/uL (4.1-5.3); Red Cell Distribution Width 19.9 % (12.1-15.1); White Blood Count 4.6 10^3/uL (4.0-10.0)
[2022-01-09 08:51] LABS: Alanine Aminotransferase 30 U/L (0-41); Albumin Level 4.1 g/dL (3.5-5.2); Alkaline Phosphatase 146 IU/L (40-130); Aspartate Amino Transferase 25 U/L (0-40); Blood Urea Nitrogen 11 mg/dL (6-20); Calcium 9.3 mg/dL (8.5-10.5); Carbon Dioxide 27 mmol/L (22-29); Chloride 105 mmol/L (98-107); Globulin 2.5 g/dL (1.3-4.6); Glomerular Filtration Rate 80.4 mL/min (90-130); Glucose 94 mg/dL (65-115); Osmolality Calculated 285 mOsm/kg (285-295); Sodium 138 mmol/L (136-145); Total Bilirubin 0.6 mg/dL (0.15-1.2); Total Protein 6.6 g/dL (6.6-8.7)
[2022-01-09] MEDS: ondansetron 2 mg/ML SDV 2 mL 8 MG IVP (10:33)
[2022-01-09] MEDS: dextrose 5% 250 ML 75 ML IV (10:33)
[2022-01-11] MEDS: pegfilgrastim-bmez 6 mg/0.6 mL SYR SUBCUT (11:30)
--- NOTE | 2022-01-13 09:40 | ONC FU_ITS ---
Dr. Estrada Patient Follow-Up Note Patient: Neil Bah Unit #: [id number]: 1975 Dicatated By: Manish Estrada M.D.Date of Visit:Jan 09, 2022 Onc Med Follow-up/Prog Note Chief Complaint: Rectal cancer. History of Present Illness: This is a 46 year-old man with well differentiated adenocarcinoma of the rectum, by clinical evaluation stage at least T3, N1, MSI stable. He has rheumatoid arthritis and last year he was found to have evidence of grade 2 diastolic dysfunction in the course of undergoing evaluation for exertional dyspnea. He had onset of rectal bleeding in November of this year. He underwent colonoscopy by Dr. Marino which apparently showed a benign rectal polyp and a more dominant rectal polyp/tumor, confirmed on biopsy to be adenomatous with focal high-grade dysplasia. He was referred to Dr. Ross in [place]. His flexible sigmoidoscopy on 02/02/2021 showed a malignant appearing tumor on the first rectal fold spanning 40 to 50% of the circumference of the rectal wall. There was central ulceration and a crater ring noted. Ultrasound was suggestive of T3 disease and also noted was a possible extra rectal round hypodense lymph node suggesting possible lymph node involvement. Biopsy of the mass showed well differentiated adenocarcinoma. Mismatch repair analysis by IHC showed intact expression of MMR proteins. His staging CT scans of the chest, abdomen, and pelvis on 02/02/2021 showed a 6 mm and 3 mm right upper lobe pulmonary nodules and a 5 mm left lower lobe pulmonary nodule, nonspecific, but metastatic disease was not excluded. The liver showed a 2.0 cm hypodense nodule with ill-defined margins in the anterior superior right lobe. The appearance was suspicious for metastasis. Multiple tiny hypodensities in the left and right lobes were too small to characterize. Also noted was a a 1.1 cm fluid density cyst in the left lobe. There was suspected 4.1 cm inhomogeneous mass in the posterior rectum. There were no enlarged lymph nodes identified. I had seen him initially on 02/17/2021. With his disease being at least stage III, he was recommended to proceed with total neoadjuvant therapy. He then began cycle 1 of neoadjuvant chemotherapy with modified FOLFOX on 02/28/2021. He tolerated well and he was unable to continue treatment at 2-week intervals. As of 06/06/2021 he began his 8th and final cycle of treatment. He was then seen by Dr. Hogan, and he began radiation concurrently with Xeloda on 06/21/2021. He completed treatment on 07/25/2021 to a total dose of 5000 cGy administered in [address] of the abdomen/pelvis on 08/23/2021 showed progression in the right hepatic lobe metastatic lesion measuring 5.2 x 4.1 cm compared to 2.8 x 2.5 cm on the prior study. There are no other sites of metastatic involvement noted. On 09/19/2021 he underwent robotic to open extended low anterior resection with loop ileostomy. Pathology showed well differentiated mucinous adenocarcinoma measuring 2.8 cm in greatest dimension. There was invasion through the muscularis propria into pericolorectal tissue. The radial margin was noted to be involved with invasive carcinoma, and there was involvement in 6 of 14 lymph nodes. The treatment effect was consistent with partial response, score 2. Pathologic staging was ypT3, ypN2a. The tumor was again noted to be MSI stable. By next generation sequencing, it was noted to harbor a KRAS exon 2 mutation and a BRAF exon 15 mutation. Additional pathologic variants included exon 10 and exon 16 APC mutations and an SMAD4 mutation. His medical history is otherwise significant for rheumatoid arthritis, for which he has been on treatment with Xeljanz. During the course of evaluation for exertional dyspnea, he was found to have evidence of grade 2 diastolic dysfunction. He has had no other known cardiac disease. He also has anxiety/depression. He is a non-smoker. He has a positive family history for colonic polyps and for colon cancer. INTERIM HISTORY: In September 2021 he was seen by Dr. Davi Pablo at [facility] in regard to further management of the liver metastasis. It was recommended that he have additional chemotherapy prior to attempting surgical resection. There is some delay in getting treatment started due to issues with his insurance coverage. He ultimately began cycle 1 of FOLFIRI chemotherapy on 11/22/2021. His baseline CEA level was 10.5 ng/mL. He tolerated that treatment without acute toxicity, but it was complicated by neutropenia, requiring growth factor support with Neupogen and necessitating a delay with his further treatment. He then began cycle 2 on 12/13/2021 with the 5-FU and irinotecan administered with a 20% dose reduction and with Neulasta administered prophylactically. He tolerated that treatment well, and he continued with cycle 3 on 12/27/2021. At that point there was a significant decline in the CEA level to 5.4 ng/mL. He has seen for a scheduled visit. He has been feeling pretty good generally. He is still feeling a little tired, but he has been able to gradually increase his activity. His ECOG score is 1. His appetite has been okay. He has no fever or night sweats. He has not had sore mouth or throat. He does not complain of cough, and he has not been having shortness of breath or chest pain. He has had no nausea with the chemotherapy, and he has not been having acid reflux symptoms. Bowel function has been okay with the ostomy. He does not seem to be having any diarrhea. He has no complaints. He has no significant joint or bone pain. He does not complain of headache. He occasionally has dizziness. 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 Medications: buPROPion HCl ER (XL) 1 Tablet (of 300 mg) Tablet SR 24 HR Oral daily, Gabapentin (600 mg) Tablet Oral t.i.d., Tamsulosin HCl 1 (0.4 mg) Capsule Oral at bedtime Allergies: Calamine Medicated Vital Signs: Performed on Jan 09, 2022 13:49 Height - 75.00 in Temperature - 98.1 F (LOW) Pulse - 72 /min BP - 100/52 mm(hg) O2 Sat - 99 % Performed on Jan 09, 2022 11:03 Height - 75.00 in Weight - 211.8 lbs (HIGH) BSA - 2.25 sq.m BMI - 26.47 Temperature - 97.8 F (LOW) Pulse - 90 /min Respiration - 18 /min BP - 106/64 mm(hg) O2 Sat - 99 % Pain - 0 Fatigue - 4 Physical Examination: Constitutional - He looks pretty good generally, Eyes - Sclerae nonicteric. Conjunctivae clear, ENMT - No lesions noted in the oral cavity, Hematologic/Lymphatic - No cervical, clavicular, or axillary adenopathy, Respiratory - Lungs are clear with good air movement bilaterally, Cardiovascular - Heart rhythm is regular. There is no murmur, gallop, or rub noted, Abdomen - Soft. Liver and spleen are not enlarged. There is no abdominal mass or ascites noted and there is no inguinal adenopathy, Extremities - No edema, Neurologic - No focal neurologic deficits noted. Lab/Imaging: Test performed on Jan 09, 2022 08:26 Sodium 138 mmol/L Potassium 4.0 mmol/L Chloride 105 mmol/L CO2 27 mmol/L Anion Gap 10.0 BUN 11 mg/dL Creatinine 1.0 mg/dL Cr Clearance (Est) 122.9400 mL/min eGFR 80.4 mL/min Glucose 94 mg/dL Osmolality - Calculated 285 mOsm/kg Calcium 9.3 mg/dL Protein, Total 6.6 g/dL Albumin 4.1 g/dL Globulin 2.5 g/dL Bilirubin, Total 0.6 mg/dL ALT (SGPT) 30 U/L AST (SGOT) 25 U/L Alkaline Phosphatase 146 IU/L WBC 4.6 10 3/uL RBC 4.77 10 6/uL HGB 11.6 g/dL HCT 37.1 % MCV 77.8 fl MCH 24.3 pg MCHC 31.3 g/dL RDW 19.9 % Platelet Count 142 10 3/cmm MPV 8.9 fL Neutrophils 3.26 10 3/uL Lymphocytes 0.9 10 3/uL Monocytes 0.3 10 3/uL Eosinophils 0.0 10 3/uL Basophils 0.0 10 3/uL Neutrophil % 70.7 % Lymphocyte % 18.7 % Monocyte % 7.2 % Eosinophil % 0.7 % Basophils % 0.7 % NRBC % 0 % Problem List: 1. Well differentiated adenocarcinoma of the rectum, stage ANDERSON (yp T3, ypN2a, M1a), MSI stable. 2. Rheumatoid arthritis. 3. Grade 2 diastolic dysfunction. 4. Anxiety/depression. Problems Addressed with this Encounter and Plan: 1. Patient with well differentiated adenocarcinoma of the rectum. His mismatch repair analysis showed intact expression of mismatch repair proteins. By ultrasound his disease was stage at least T3, N1. His staging CT scans also showed a possible metastatic lesion in the right lobe of the liver. Additional lesions involving both lobes of the liver were too small to characterize and several small pulmonary nodules were also too small to characterize. With those findings he was recommended to undergo total neoadjuvant therapy. He began cycle 1 of modified FOLFOX on 02/28/2021. He tolerated it well and he was then able to continue treatment at 2-week intervals. As of 06/06/2021 he began his 8th and final cycle of treatment. He was then seen by Dr. Hogan, and he began radiation concurrently with Xeloda on 06/21/2021. He completed treatment on 07/25/2021 to a total dose of 5000 cGy administered in [address]. [address] abdomen/pelvis on 08/23/2021 showed progression in the right hepatic lobe metastatic lesion measuring 5.2 x 4.1 cm compared to 2.8 x 2.5 cm on the prior study. On 09/19/2021 he underwent robotic to open extended low anterior resection with loop ileostomy. Pathology showed well differentiated mucinous adenocarcinoma measuring 2.8 cm in greatest dimension. There was invasion through the muscularis propria into pericolorectal tissue. The radial margin was noted to be involved with invasive carcinoma, and there was involvement in 6 of [address] lymph nodes. Given the CT and operative findings, his final staging was ANDERSON (yp T3, ypN2a, M1a). By next generation sequencing, the tumor was noted to harbor a KRAS exon 2 mutation and a BRAF exon 15 mutation. He had gradual recovery from the surgery. In September he had further surgical consultation with Dr. Davi Pablo at [facility], and he was recommended to undergo additional chemotherapy prior to attempting resection of the right hepatic lobe lesion. On 11/22/2021 he began cycle 1 of FOLFIRI chemotherapy. It was administered without the 5-FU bolus. Avastin also was not included in the regimen, as it was expected that he would be having additional surgery. His cycle 1 was complicated by neutropenia, requiring growth factor support with Neupogen and necessitating a treatment delay. He was able to proceed with cycle 2 on 11/22/2021, administered with a dose reduction and with Neulasta prophylactically. He then continued with cycle 3 on 12/27/2021. At that point there was a significant decrease in the CEA level to 5.4 ng/mL compared to her pretreatment level of 10.5 ng/mL. He has been tolerating the chemotherapy very well at the reduced dosages. He will proceed now with cycle 4. The dosages will remain the same. He returns for follow-up in 2 weeks. I will plan restaging CT scans after 6 cycles. 2. He has iron deficiency anemia. Thus far he has remained mildly anemic, but at this point he prefers to just continue with oral iron supplementation. Signed By: Manish Estrada M.D. <<Signature on File>>
[2022-01-22 08:50] LABS: Basophils % 0.2 %; Eosinophils % 0.7 %; Hematocrit 38.6 % (42.0-52.0); Hemoglobin 11.9 g/dL (11.7-16.6); Lymphocytes # 0.8 10^3/uL (0.8-4.8); Lymphocytes % 13.6 %; Mean Corpuscular HGB Conc 30.8 g/dL (30.0-36.0); Mean Corpuscular Hemoglobin 24.7 pg (28.0-34.0); Mean Corpuscular Volume 80.2 fl (80-94); Mean Platelet Volume 9.4 fL (7.4-10.4); Monocytes # 0.4 10^3/uL (0.2-0.9); Monocytes % 6.6 %; Neutrophils # 4.37 10^3/uL (1.8-7.7); Nucleated Red Blood Cells % 0 %; Platelet Count 139 10^3/cmm (130-400); Red Blood Count 4.81 10^6/uL (4.1-5.3); Red Cell Distribution Width 21.2 % (12.1-15.1); White Blood Count 5.6 10^3/uL (4.0-10.0)
[2022-01-22 09:11] LABS: Alanine Aminotransferase 26 U/L (0-41); Alkaline Phosphatase 126 IU/L (40-130); Anion Gap 12.9 (5-19); Aspartate Amino Transferase 21 U/L (0-40); Blood Urea Nitrogen 11 mg/dL (6-20); Calcium 8.8 mg/dL (8.5-10.5); Carbon Dioxide 26 mmol/L (22-29); Chloride 106 mmol/L (98-107); Globulin 3.1 g/dL (1.3-4.6); Glomerular Filtration Rate 80.4 mL/min (90-130); Glucose 103 mg/dL (65-115); Osmolality Calculated 292 mOsm/kg (285-295); Potassium 3.9 mmol/L (3.5-5.1); Sodium 141 mmol/L (136-145); Total Bilirubin 0.6 mg/dL (0.15-1.2); Total Protein 7.1 g/dL (6.6-8.7)
[2022-01-22] MEDS: dextrose 5% 250 ML 100 ML IV (10:50)
[2022-01-22] MEDS: ondansetron 2 mg/ML SDV 2 mL 8 MG IV (10:55)
--- NOTE | 2022-01-26 13:16 | ONC FU_ITS ---
Clau Duff Progress Note Patient: Neil Bah Unit #: [id number]: [id number] Dicatated By: Clau Duff N.P.Date of Visit:Jan 22, 2022 Onc MED Follow-up/Prog Note Chief Complaint: Rectal cancer. History of Present Illness: This is a 46 year-old man with well differentiated adenocarcinoma of the rectum, by clinical evaluation stage at least T3, N1, MSI stable. He has rheumatoid arthritis and last year he was found to have evidence of grade 2 diastolic dysfunction in the course of undergoing evaluation for exertional dyspnea. He had onset of rectal bleeding in November of this year. He underwent colonoscopy by Dr. Marino which apparently showed a benign rectal polyp and a more dominant rectal polyp/tumor, confirmed on biopsy to be adenomatous with focal high-grade dysplasia. He was referred to Dr. Ross in [place]. His flexible sigmoidoscopy on 02/02/2021 showed a malignant appearing tumor on the first rectal fold spanning 40 to 50% of the circumference of the rectal wall. There was central ulceration and a crater ring noted. Ultrasound was suggestive of T3 disease and also noted was a possible extra rectal round hypodense lymph node suggesting possible lymph node involvement. Biopsy of the mass showed well differentiated adenocarcinoma. Mismatch repair analysis by IHC showed intact expression of MMR proteins. His staging CT scans of the chest, abdomen, and pelvis on 02/02/2021 showed a 6 mm and 3 mm right upper lobe pulmonary nodules and a 5 mm left lower lobe pulmonary nodule, nonspecific, but metastatic disease was not excluded. The liver showed a 2.0 cm hypodense nodule with ill-defined margins in the anterior superior right lobe. The appearance was suspicious for metastasis. Multiple tiny hypodensities in the left and right lobes were too small to characterize. Also noted was a a 1.1 cm fluid density cyst in the left lobe. There was suspected 4.1 cm inhomogeneous mass in the posterior rectum. There were no enlarged lymph nodes identified. Dr. Estrada had seen him initially on 02/17/2021. With his disease being at least stage III, he was recommended to proceed with total neoadjuvant therapy. He then began cycle 1 of neoadjuvant chemotherapy with modified FOLFOX on 02/28/2021. He tolerated well and he was unable to continue treatment at 2-week intervals. As of 06/06/2021 he began his 8th and final cycle of treatment. He was then seen by Dr. Hogan, and he began radiation concurrently with Xeloda on 06/21/2021. He completed treatment on 07/25/2021 to a total dose of 5000 cGy administered in [address] of the abdomen/pelvis on 08/23/2021 showed progression in the right hepatic lobe metastatic lesion measuring 5.2 x 4.1 cm compared to 2.8 x 2.5 cm on the prior study. There are no other sites of metastatic involvement noted. On 09/19/2021 he underwent robotic to open extended low anterior resection with loop ileostomy. Pathology showed well differentiated mucinous adenocarcinoma measuring 2.8 cm in greatest dimension. There was invasion through the muscularis propria into pericolorectal tissue. The radial margin was noted to be involved with invasive carcinoma, and there was involvement in 6 of 14 lymph nodes. The treatment effect was consistent with partial response, score 2. Pathologic staging was ypT3, ypN2a. The tumor was again noted to be MSI stable. By next generation sequencing, it was noted to harbor a KRAS exon 2 mutation and a BRAF exon 15 mutation. Additional pathologic variants included exon 10 and exon 16 APC mutations and an SMAD4 mutation. His medical history is otherwise significant for rheumatoid arthritis, for which he has been on treatment with Xeljanz. During the course of evaluation for exertional dyspnea, he was found to have evidence of grade 2 diastolic dysfunction. He has had no other known cardiac disease. He also has anxiety/depression. He is a non-smoker. He has a positive family history for colonic polyps and for colon cancer. INTERIM HISTORY: In September 2021 he was seen by [address]. Davi Pablo at [facility] in regard to further management of the liver metastasis. It was recommended that he have additional chemotherapy prior to attempting surgical resection. There is some delay in getting treatment started due to issues with his insurance coverage. He ultimately began cycle 1 of FOLFIRI chemotherapy on 11/22/2021. His baseline CEA level was 10.5 ng/mL. He tolerated that treatment without acute toxicity, but it was complicated by neutropenia, requiring growth factor support with Neupogen and necessitating a delay with his further treatment. He then began cycle 2 on 12/13/2021 with the 5-FU and irinotecan administered with a 20% dose reduction and with Neulasta administered prophylactically. He tolerated that treatment well, and he continued with cycle 3 on 12/27/2021. At that point there was a significant decline in the CEA level to 5.4 ng/mL. Who presents today for a follow-up visit. He states he has been feeling pretty good. He still has some mild fatigue. His appetite has been good. He denies fever, chills, night sweats. No sinus drainage or mouth sores. No shortness of breath, cough, chest pain. No nausea or vomiting. His colostomy is working well with no diarrhea. He continues to have some peripheral neuropathy but that is improving. No headaches or dizziness. Review Of Symptoms: see above. Past Medical History: Anxiety Depression Grade 2 diastolic dysfunction Rheumatoid arthritis Past Surgical History: Right shoulder tendon repair Tympanoplasty Right internal jugular port placement???Dr. Ross/[facility] in 2020 Covid vaccine #2 in 2020 Colonoscopy in 2020 Covid vaccine #1 in 2020 Allergies: Calamine Medicated Medications: buPROPion HCl ER (XL) 1 Tablet (of 300 mg) Tablet SR 24 HR Oral daily Gabapentin (600 mg) Tablet Oral t.i.d. Tamsulosin HCl 1 (0.4 mg) Capsule Oral at bedtime Family History: Mr. Bah's father at age 67: Pancreas Cancer. Father of pancreatic cancer at age 67. Mother still living at age 76. She has had treatment for colonic polyps and 2 of his 3 siblings have also been treated for colonic polyps. His paternal grandmother of colon cancer in his paternal grandfather had mesothelioma. His maternal grandmother is a colon cancer survivor. He has 2 children, twin daughters who are now age 17. Social History: Mr. Bah is . Mr. Bah has never smoked. He has no history of drinking. He is . He is a non-smoker. He does not drink alcohol. Physical Examination: Performed on Jan 22, 2022 10:56: Height - 75.00 in, Weight - 216.4 lbs (HIGH), BSA - 2.27 sq.m, BMI - 27.05, Temperature - 98.3 F (LOW), Pulse - 79 /min, Respiration - 16 /min, BP - 129/73 mm(hg), O2 Sat - 98 %, Pain - 0, and Fatigue - 3. Performance Status: 1 - No physically strenuous activity, but ambulatory and able to carry out light or sedentary work (e.g. office work, light house work). (ECOG) Constitutional Alert, cooperative, oriented. Mood and affect appropriate. Appears close to chronological age. Well nourished. Well developed. Head Normocephalic; no scars. Respiratory Lungs are clear to auscultation without rhonchi or wheezing. Cardiovascular Regular rate and rhythm of heart without murmurs, gallops or rubs. Abdomen Non-tender, non-distended, no masses, ascites or hepatosplenomegaly. Good bowel sounds. No guarding or rebound tenderness. Musculoskeletal No tenderness or swelling, normal range of motion without obvious weakness. Psychiatric Alert and oriented times three. Coherent speech. Verbalizes understanding of our discussions today. Laboratory: Test performed on Jan 22, 2022 08:35 Sodium 141 mmol/L Potassium 3.9 mmol/L Chloride 106 mmol/L CO2 26 mmol/L Anion Gap 12.9 BUN 11 mg/dL Creatinine 1.0 mg/dL Cr Clearance (Est) 122.9400 mL/min eGFR 80.4 mL/min Glucose 103 mg/dL Osmolality - Calculated 292 mOsm/kg Calcium 8.8 mg/dL Protein, Total 7.1 g/dL Albumin 4.0 g/dL Globulin 3.1 g/dL Bilirubin, Total 0.6 mg/dL ALT (SGPT) 26 U/L AST (SGOT) 21 U/L Alkaline Phosphatase 126 IU/L WBC 5.6 10 3/uL RBC 4.81 10 6/uL HGB 11.9 g/dL HCT 38.6 % MCV 80.2 fl MCH 24.7 pg MCHC 30.8 g/dL RDW 21.2 % Platelet Count 139 10 3/cmm MPV 9.4 fL Neutrophils 4.37 10 3/uL Lymphocytes 0.8 10 3/uL Monocytes 0.4 10 3/uL Eosinophils 0.0 10 3/uL Basophils 0.0 10 3/uL Neutrophil % 78.0 % Lymphocyte % 13.6 % Monocyte % 6.6 % Eosinophil % 0.7 % Basophils % 0.2 % NRBC % 0 % Test performed on Dec 27, 2021 08:10 CEA 5.4 ng/mL Test performed on Dec 13, 2021 12:24 Ua Color Yellow Ua Appearance Clear Ua Glucose Norm Ua Bilirubin Neg Ua Ketones Negative Ua Specific [place] 1.005 Ua Blood Neg Ua pH 7 Ua Protein Neg Ua Nitrites Negative Ua Leukocyte Esterase Negative Test performed on Dec 13, 2021 08:30 CBC Slide Review Slide Review Perform SLIDE REVIEW AGREES WITH AUTOMATED RESULTS ST Test performed on Nov 22, 2021 10:42 Ua Micro: WBC 10-15 /hpf Urine Culture CC 100 CFU/ml Ua Micro: RBC 0-4 /hpf Ua Micro: Squam Epith Cells RARE /hpf Ua Micro: Bacteria 2+ /hpf Impression: 1. Well differentiated adenocarcinoma of the rectum, stage ANDERSON (yp T3, ypN2a, M1a), MSI stable. 2. Rheumatoid arthritis. 3. Grade 2 diastolic dysfunction. 4. Anxiety/depression. Plan: 1. Patient with well differentiated adenocarcinoma of the rectum. His mismatch repair analysis showed intact expression of mismatch repair proteins. By ultrasound his disease was stage at least T3, N1. His staging CT scans also showed a possible metastatic lesion in the right lobe of the liver. Additional lesions involving both lobes of the liver were too small to characterize and several small pulmonary nodules were also too small to characterize. With those findings he was recommended to undergo total neoadjuvant therapy. He began cycle 1 of modified FOLFOX on 02/28/2021. He tolerated it well and he was then able to continue treatment at 2-week intervals. As of 06/06/2021 he began his 8th and final cycle of treatment. He was then seen by Dr. Hogan, and he began radiation concurrently with Xeloda on 06/21/2021. He completed treatment on 07/25/2021 to a total dose of 5000 cGy administered in [address]. [address] abdomen/pelvis on 08/23/2021 showed progression in the right hepatic lobe metastatic lesion measuring 5.2 x 4.1 cm compared to 2.8 x 2.5 cm on the prior study. On 09/19/2021 he underwent robotic to open extended low anterior resection with loop ileostomy. Pathology showed well differentiated mucinous adenocarcinoma measuring 2.8 cm in greatest dimension. There was invasion through the muscularis propria into pericolorectal tissue. The radial margin was noted to be involved with invasive carcinoma, and there was involvement in 6 of 14 lymph nodes. Given the CT and operative findings, his final staging was ANDERSON (yp T3, ypN2a, M1a). By next generation sequencing, the tumor was noted to harbor a KRAS exon 2 mutation and a BRAF exon 15 mutation. He had gradual recovery from the surgery. In September he had further surgical consultation with Dr. Davi Pablo at [facility], and he was recommended to undergo additional chemotherapy prior to attempting resection of the right hepatic lobe lesion. On 11/22/2021 he began cycle 1 of FOLFIRI chemotherapy. It was administered without the 5-FU bolus. Avastin also was not included in the regimen, as it was expected that he would be having additional surgery. His cycle 1 was complicated by neutropenia, requiring growth factor support with Neupogen and necessitating a treatment delay. He was able to proceed with cycle 2 on 11/22/2021, administered with a dose reduction and with Neulasta prophylactically. He then continued with cycle 3 on 12/27/2021. At that point there was a significant decrease in the CEA level to 5.4 ng/mL compared to her pretreatment level of 10.5 ng/mL. He has been tolerating the chemotherapy very well at the reduced dosages. He will proceed now with cycle 6. The dosages will remain the same. He returns for follow-up in 2 weeks. We will plan restaging CT scans after 5 cycles. 2. He has iron deficiency anemia. Thus far he has remained mildly anemic, but at this point he prefers to just continue with oral iron supplementation. Signed By: Clau Duff N.P. <<Signature on File>>
== END 2022-01-27 23:59 | disposition home or self-care (01) ==
LOC: ONCMED 06:50
PROVIDERS: Nurse Practitioner Family; PCP Internal Medicine; Visit Provider Internal Medicine Medical Oncology
DX: Z51.11 Encounter for antineoplastic chemotherapy (principal); C20 Malignant neoplasm of rectum; C78.7 Secondary malignant neoplasm of liver and intrahepatic bile duct; C77.8 Secondary and unspecified malignant neoplasm of lymph nodes of multiple regions; D70.1 Agranulocytosis secondary to cancer chemotherapy; T45.1X5A Adverse effect of antineoplastic and immunosuppressive drugs, initial encounter; D50.9 Iron deficiency anemia, unspecified; Z79.899 Other long term (current) drug therapy
CPT/HCPCS: 80053; 85025; 96367; 96368; 96372; 96375; 96401; 96413; 96415; 96416; 96417; 96523; 99215; J0461; J0640; J1100; J2405; J2505; J9190; J9206; Q5120

== ENCOUNTER 2022-02-15 12:30 | Oncology outpatient (recurring) (ONCR) | payer BC, SELFPAY ==
[2022-02-06 08:44] VITALS: BMI 26.9
[2022-02-06 08:54] LABS: Eosinophils % 0.3 %; Hemoglobin 11.8 g/dL (11.7-16.6); Lymphocytes # 0.4 10^3/uL (0.8-4.8); Lymphocytes % 13.2 %; Mean Corpuscular HGB Conc 31.9 g/dL (30.0-36.0); Mean Corpuscular Volume 81.7 fl (80-94); Mean Platelet Volume 9.5 fL (7.4-10.4); Monocytes # 0.3 10^3/uL (0.2-0.9); Monocytes % 9.6 %; Neutrophils # 2.37 10^3/uL (1.8-7.7); Neutrophils % 76.3 %; Nucleated Red Blood Cells % 0 %; Platelet Count 130 10^3/cmm (130-400); Red Blood Count 4.53 10^6/uL (4.1-5.3); Red Cell Distribution Width 20.4 % (12.1-15.1); White Blood Count 3.1 10^3/uL (4.0-10.0)
[2022-02-06 09:25] LABS: Carcinoembryonic Antigen 4.2 ng/mL (0.0-4.7)
[2022-02-06 09:36] LABS: Alanine Aminotransferase 31 U/L (0-41); Albumin Level 4.1 g/dL (3.5-5.2); Alkaline Phosphatase 106 IU/L (40-130); Anion Gap 13.7 (5-19); Aspartate Amino Transferase 23 U/L (0-40); Blood Urea Nitrogen 9 mg/dL (6-20); Calcium 9.2 mg/dL (8.5-10.5); Carbon Dioxide 25 mmol/L (22-29); Chloride 104 mmol/L (98-107); Globulin 2.6 g/dL (1.3-4.6); Glomerular Filtration Rate 80.4 mL/min (90-130); Glucose 113 mg/dL (65-115); Osmolality Calculated 287 mOsm/kg (285-295); Potassium 3.7 mmol/L (3.5-5.1); Sodium 139 mmol/L (136-145); Total Bilirubin 0.7 mg/dL (0.15-1.2); Total Protein 6.7 g/dL (6.6-8.7)
[2022-02-06 09:51] LABS: Iron 24 ug/dL (59-158); Percent Saturation 8.6 % (20-50); Total Iron Binding Capacity 277 mcg/dl; Unsaturated Iron Binding 253 ug/dL (112-347)
[2022-02-06] MEDS: dextrose 5% 250 ML 75 ML IV (10:11)
[2022-02-06] MEDS: ondansetron 2 mg/ML SDV 2 mL 8 MG IVP (10:12)
[2022-02-06] MEDS: atropine 1 mg/mL SDV 1 mL 0.4 MG IV (10:47)
[2022-02-06] MEDS: DEXTROSE 5% IV (11:02)
[2022-02-06] MEDS: IRINOTECAN IV (11:02)
[2022-02-06] MEDS: leucovorin 900 MG in dextrose 5% 250 ML 226.67 MG IV (11:03)
[2022-02-06] MEDS: fluorouraciL 4,350 MG, elastomeric pump 1 PUMP in sodium chloride 0.9% (100 ml) 5 ML IV (13:06)
[2022-02-06 13:39] VITALS: BP 101/65; PULSE 85; TEMP 36.9; O2SAT 98
[2022-02-08] MEDS: pegfilgrastim-bmez 6 mg/0.6 mL SYR SUBCUT (12:15)
[2022-02-08 12:21] VITALS: BP 104/68; PULSE 91; RESP 16; TEMP 36.5; O2SAT 97
--- NOTE | 2022-02-15 11:54 | CTR_ITS ---
PROCEDURE INFORMATION: Exam: CT Chest With Contrast; Diagnostic Exam date and time: 02/15/2022 1:53 PM Age: 46 years old Clinical indication: Condition or disease; Other: Rectal cancer; Follow-up oncological assessment; Prior surgery; Surgery type: Colon, ileostomy; Additional info: Follow up post treatment TECHNIQUE: Imaging protocol: Diagnostic computed tomography of the chest with contrast. Radiation optimization: All CT scans at this facility use at least one of these dose optimization techniques: automated exposure control; mA and/or kV adjustment per patient size (includes targeted exams where dose is matched to clinical indication); or iterative reconstruction. Contrast material: OMNI 300; Contrast volume: 95 ml; Contrast route: INTRAVENOUS (IV); COMPARISON: CT Chest/Abdomen/Pelvis w IV* 02/02/2021 7:51 PM RADIATION DOSE METRICS: Total DLP (mGy-cm): 1825.98 FINDINGS: Tubes, catheters and devices: Right chest port terminates in the distal SVC. Lungs: Similar size and appearance of a 6 mm rounded solid nodule noted in the right upper lobe series 3 image 14. There is also a solid nodule in the right lower lobe which appears slightly increased in size from prior study now measuring 6 mm, previously 5 mm (series 4, image 36). Pleural spaces: No pneumothorax. No pleural effusion. Heart: No cardiomegaly. No pericardial effusion. Lymph nodes: No enlarged lymph nodes. Vasculature: No aortic aneurysm. Bones/joints: No acute fracture. No suspicious lytic or blastic osseous lesions. Soft tissues: Unremarkable. PROCEDURE INFORMATION: Exam: CT Abdomen And Pelvis With Contrast Exam date and time: 02/15/2022 1:53 PM Age: 46 years old Clinical indication: Condition or disease; Other: Rectal cancer; Follow-up oncological assessment; Prior surgery; Surgery type: Colon, ileostomy; Additional info: Follow up post treatment TECHNIQUE: Imaging protocol: Computed tomography of the abdomen and pelvis with contrast. Radiation optimization: All CT scans at this facility use at least one of these dose optimization techniques: automated exposure control; mA and/or kV adjustment per patient size (includes targeted exams where dose is matched to clinical indication); or iterative reconstruction. Contrast material: OMNI 300; Contrast volume: 95 ml; Contrast route: INTRAVENOUS (IV); COMPARISON: [place] [id number] 08/23/2021 9:56 AM RADIATION DOSE METRICS: Total DLP (mGy-cm): 1825.98 FINDINGS: Liver: There is an irregular solid mass centered in segment 8 and extending slightly into segment 4 measuring 7.7 x 5.2 cm in axial dimension series 5, image 13. This is increased in size from most recent comparison 08/23/2021 measuring 4.6 x 4.2 cm at that time. Hepatic and portal veins are patent. There are additional subcentimeter low-attenuation lesions scattered throughout the liver. These appears cystic and were present on prior exam, not significantly changed. Gallbladder and bile ducts: Punctate cholelithiasis. Contracted gallbladder. No ductal dilation. Pancreas: Normal. No ductal dilation. Spleen: Normal. No splenomegaly. Adrenal glands: Normal. No mass. Kidneys and ureters: Small scattered cysts noted. No hydronephrosis. Stomach and bowel: Right lower abdominal ileostomy noted. Sequela of distal rectal resection/postsurgical changes with a small walled-off collection of air and fluid measuring 2.4 x 3.3 cm series 5, image 72. Simple appearing fluid surrounds the resection cavity. No obstruction. No mucosal thickening. Appendix: No evidence of appendicitis. Intraperitoneal space: Unremarkable. No free air. No significant fluid collection. Vasculature: Unremarkable. No abdominal aortic aneurysm. Lymph nodes: Unremarkable. No enlarged lymph nodes. Urinary bladder: Edematous circumferential wall thickening of the bladder. Reproductive: Unremarkable as visualized. Bones/joints: No acute fracture. No suspicious lytic or blastic osseous lesions. Soft tissues: Small left-sided fat containing inguinal hernia. CT/CT chest abd pel w con* IMPRESSION: Slightly increased size of a 5 mm nodule in the right lower lobe. 6 mm nodule in the right upper lobe is stable. IMPRESSION: 1. Irregular solid mass centered within the right hepatic lobe measuring 7.7 x 5.2 cm in size. This has intervally increased in size from most recent comparison 08/23/2021 and consistent with progression of disease in the liver. 2. Sequela of distal rectal resection and right lower abdominal ileostomy placement. There is a small air and fluid-filled collection measuring up to 3.3 cm at the resection cavity with surrounding fluid. This is presumed postsurgical in nature, correlate with surgical history and any interval imaging reports if available. 3. Edematous wall thickening of the bladder, presumably related to radiation cystitis with the appropriate treatment history. 4. Punctate cholelithiasis.
[2022-02-15] MEDS: iohexol 300 mg/mL 100 mL Btl IV (15:34)
[2022-03-14 14:28] VITALS: BP 105/74; PULSE 72; RESP 18; TEMP 36.5; O2SAT 98
== END 2022-02-27 23:59 | disposition home or self-care (01) ==
LOC: RAD 02-16 00:01 → ONCMED 03-14 12:40
PROVIDERS: PCP Internal Medicine; Referring Provider Colon & Rectal Surgery; Visit Provider Internal Medicine Medical Oncology
DX: C20 Malignant neoplasm of rectum (principal); C78.7 Secondary malignant neoplasm of liver and intrahepatic bile duct; R60.0 Localized edema; N30.90 Cystitis, unspecified without hematuria; K80.20 Calculus of gallbladder without cholecystitis without obstruction
CPT/HCPCS: 71260; 74177; 80053; 82378; 83540; 83550; 85025; 96367; 96368; 96372; 96375; 96413; 96415; 96416; 96417; 96523; J0461; J0640; J1100; J2405; J9190; J9206; Q5120; Q9967

== ENCOUNTER 2022-03-14 06:00 | Oncology outpatient (recurring) (ONCR) | payer BC, SELFPAY | END 2022-03-29 23:59 | disposition home or self-care (01) | LOC: ONCMED 03-16 09:33 | PROVIDERS: PCP Internal Medicine; Referring Provider Colon & Rectal Surgery; Visit Provider Internal Medicine Medical Oncology | DX: Z53.9 Procedure and treatment not carried out, unspecified reason (principal) | CPT/HCPCS: 96372 ==

== ENCOUNTER 2022-05-05 09:36 | Emergency (ER) | payer BC, SELFPAY ==
[2022-05-05 09:43] VITALS: BP 136/74; PULSE 98; RESP 18; TEMP 36.8; O2SAT 99; BMI 26.9
--- NOTE | 2022-05-05 09:50 | W.ED.GENADLT ---
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 He states pain began around 6am this morning. Patient states port was placed 01/2021 for chemotherapy treatments. He states he has not had any issues with the port since placement. It was last accessed several months ago. He has not noticed any redness or swelling surrounding the port. Onset (ago): hour(s) Location: chest (chemo port) Pain Consistency: constant Associated symptoms: Reports no associated symptoms and chest pain (R anterior chest-around port site); Deny dyspnea, headache(s), rash, palpitations or syncope Treatments prior to arrival: none and other (he states he did contact Dr. Estrada) Review of Systems Const: Denies: fever(s), chills or body aches Card: Reports: chest pain (R anterior chest-around port site); Denies: palpitations, irregular heart rhythm, edema, syncope or pre-syncope Resp: Denies: dyspnea GI: Denies: abdominal pain Musc: Denies: neck pain, back pain, extremity pain or joint pain Skin/Breast: Denies: rash Neuro: Denies: headache(s), numbness in extremities, weakness in extremities or sensory changes PFS ED PFSH: Medical History Anxiety and depression Diastolic dysfunction Malignant neoplasm of rectum Stage ANDERSON - T3, N2a, M1a Other iron deficiency anemias Rheumatoid arthritis Secondary malignant neoplasm of liver and intrahepatic bile duct Surgical History History of low anterior resection of rectum (~08/2021) open extended low anterior resection with loop ileostomy S/P shoulder surgery (~12/2013) S/P tympanoplasty Family History Grandfather Heart attack Cancer Father Cancer Grandmother Cancer Social History (Reviewed 05/05/22 @ 10:21 by DEANA Carreon Smoking and tobacco status: never smoked Second hand smoke exposure: No Smoking risk assessment/counseling performed?: No Alcohol intake: never Desire information about alcohol rehabilitation?: No Counseling given: No Desire information about substance/drug rehabilitation?: No Counseling given: No Lives independently: Yes Household members: children Housing: House Marital status: / Current occupational status: employed Current occupation: Conservation Current occupational exposures/hazards: No History of recent travel: No Current gender identity: Male Physical Exam Const: COMMON NORMALS: no acute distress, patient oriented x3, no limitations and alert GENERAL APPEARANCE: cooperative ORIENTATION/CONSCIOUSNESS: Yes awake, Yes oriented to person, Yes oriented to place and Yes oriented to time HENMT: COMMON NORMALS: normocephalic and atraumatic HEAD & SCALP: normal to inspection, normocephalic and atraumatic Neck/C-Spine: COMMON NORMALS: full ROM, no lymphadenopathy and no meningeal signs GENERAL: Yes normal visual inspection, No anterior neck swelling and No submandibular swelling CERVICAL SPINE: Yes cervical ROM normal Chest: COMMONS NORMALS: normal inspection of the chest (port looks normal; no erythema/swelling noted) and normal palpation of entire chest wall Resp: COMMON NORMALS: normal respiratory effort and clear to auscultation bilaterally AUSCULTATION: clear to auscultation bilaterally Cardio: COMMON NORMALS: regular rate and regular rhythm RATE: regular rate RHYTHM: regular rhythm Extremity: COMMON NORMALS: normal to inspection, full ROM, capillary refill normal and no clubbing, cyanosis or edema GENERAL: Yes normal exam except as noted Neuro: DENNIS COMA SCALE: document GCS findings [place] coma scale eye opening: Spontaneous Dennis coma scale verbal response: Orientated [place] coma scale motor response: Obey commands [place] coma scale total score: 15 COMMON NORMALS: patient oriented x3, moves all extremities, no focal motor deficits and no sensory deficits noted SENSORIUM/ORIENTATION: Yes alert, Yes oriented to person, Yes oriented to place and Yes oriented to time MENINGEAL SIGNS: Yes no meningeal signs Skin: COMMON NORMALS: no rashes or lesions noted GENERAL SKIN EXAM: no rashes or lesions noted Course Vital Signs: Vital signs: Vital Signs Temperature 98.2 F 05/05/22 09:43 Pulse Rate 89 05/05/22 11:03 Respiratory Rate 16 05/05/22 11:03 Blood Pressure 116/71 05/05/22 11:03 Pulse Oximetry 98 05/05/22 11:03 Oxygen Delivery Me thod 05/05/22 11:03 MDM - General Adult Medical Decision Making Case discussed with Dr. Clement who recommends CTA imaging. This was negative. They did see liver mass that patient is aware of and according to him has an upcoming hepatic lobe resection scheduled at [facility]. Patient has no swelling or pain to his R UE thus subclavian DVT thought to be unlikely. He has no redness, swelling, drainage, or evidence for infection. Vitals and white count are normal. Recommend he follow up with oncology team at [facility] or Dr. Estrada here if pain persists. Return to ED precautions given. Lab Data : 05/05/22 10:20 05/05/22 10:20 Radiology Impressions Chest CTA 05/05/22 10:02 IMPRESSION: 1. No central or lobar pulmonary emboli. Evaluation for more distal pulmonary emboli is limited by suboptimal contrast bolus timing. 2. Similar right lung pulmonary nodules. 3. A large wedge-shaped area of low-density is seen in the right hepatic lobe, incompletely assessed. Consider dedicated abdominal imaging for evaluation of the known hepatic metastases as clinically warranted. Laboratory Results WBC 4.3 10^3/uL (4.0-10.0) 05/05/22 10:20 RBC 5.09 10^6/uL (4.1-5.3) 05/05/22 10:20 Hgb 14.1 g/dL (11.7-16.6) 05/05/22 10:20 Hct 42.1 % (42.0-52.0) 05/05/22 10:20 MCV 82.7 fl (80-94) 05/05/22 10:20 MCH 27.7 pg (28.0-34.0) L 05/05/22 10:20 MCHC 33.5 g/dL (30.0-36.0) 05/05/22 10:20 RDW 12.2 % (12.1-15.1) 05/05/22 10:20 Plt Count 135 10^3/cmm (130-400) 05/05/22 10:20 MPV 9.4 fL (7.4-10.4) 05/05/22 10:20 Neut % (Auto) 76.9 % 05/05/22 10:20 Lymph % (Auto) 12.4 % 05/05/22 10:20 Isabela % (Auto) 5.6 % 05/05/22 10:20 Eos % (Auto) 4.7 % 05/05/22 10:20 Baso % (Auto) 0.2 % 05/05/22 10:20 Neut # (Auto) 3.29 10^3/uL (1.8-7.7) 05/05/22 10:20 Lymph # (Auto) 0.5 10^3/uL (0.8-4.8) L 05/05/22 10:20 Isabela # (Auto) 0.2 10^3/uL (0.2-0.9) 05/05/22 10:20 Eos # (Auto) 0.2 10^3/uL (0.0-0.8) 05/05/22 10:20 Baso # (Auto) 0.0 10^3/uL (0.0-0.1) 05/05/22 10:20 Nucleated RBC % (auto) 0 % 05/05/22 10:20 Nucleated RBCs # 0.0 /100WBC 05/05/22 10:20 Sodium 140 mmol/L (136-145) 05/05/22 10:20 Potassium 4.0 mmol/L (3.5-5.1) 05/05/22 10:20 Chloride 103 mmol/L (98-107) 05/05/22 10:20 Carbon Dioxide 27 mmol/L (22-29) 05/05/22 10:20 Anion Gap 14.0 (5-19) 05/05/22 10:20 BUN 13 mg/dL (6-20) 05/05/22 10:20 Creatinine 1.0 mg/dL (0.7-1.2) 05/05/22 10:20 GFR Calculation 80.4 mL/min (90-130) L 05/05/22 10:20 Glucose 124 mg/dL (65-115) H 05/05/22 10:20 Calculated Osmolality 292 mOsm/kg (285-295) 05/05/22 10:20 Calcium 9.5 mg/dL (8.5-10.5) 05/05/22 10:20 Total Bilirubin 1.0 mg/dL (0.15-1.2) 05/05/22 10:20 AST 35 U/L (0-40) 05/05/22 10:20 ALT 35 U/L (0-41) 05/05/22 10:20 Alkaline Phosphatase 196 IU/L (40-130) H 05/05/22 10:20 Total Protein 7.1 g/dL (6.6-8.7) 05/05/22 10:20 Albumin 4.1 g/dL (3.5-5.2) 05/05/22 10:20 Globulin 3.0 g/dL (1.3-4.6) 05/05/22 10:20 Discharge Plan Discharge Patient Disposition: Home Clinical Impression: Encounter for care related to Port-a-Cath Condition: Stable Prescriptions: No Action bupropion HCl 150 mg tablet extended release 24 hr 300 mg PO QAM tamsulosin [Flomax] 0.4 mg capsule 0.4 mg PO DAILY gabapentin 600 mg tablet 600 mg PO TID doxycycline hyclate 100 mg capsule 100 mg PO BID 10 Days Qty: 20 1RF Discharge Orders: Discharge ED (Routine); Ordered 05/05/22 Ordered By: Theresa Browning Referrals: Manish Cobb DO [Primary Care Provider] - Coding Level of Care Code ED Candle M[employer] Machine for Chg Fwd Exam Comprehensive Documented by User: Jeremy Clement DO 05/06/22 06:03 HPI - General Adult General: Chief complaint: General Medical Stated complaint: pain behind port Time Seen by Provider: 05/05/22 09:49 PFSH ED PFSH: Medical History Anxiety and depression Diastolic dysfunction Malignant neoplasm of rectum Stage ANDERSON - T3, N2a, M1a Other iron deficiency anemias Rheumatoid arthritis Secondary malignant neoplasm of liver and intrahepatic bile duct Surgical History History of low anterior resection of rectum (~08/2021) open extended low anterior resection with loop ileostomy S/P shoulder surgery (~12/2013) S/P tympanoplasty Family History Grandfather Heart attack Cancer Father Cancer Grandmother Cancer Social History Smoking and tobacco status: never smoked Second hand smoke exposure: No Smoking risk assessment/counseling performed?: No Alcohol intake: never Desire information about alcohol rehabilitation?: No Counseling given: No Desire information about substance/drug rehabilitation?: No Counseling given: No Lives independently: Yes Household members: children Housing: House Marital status: / Current occupational status: employed Current occupation: Conservation Current occupational exposures/hazards: No History of recent travel: No Current gender identity: Male Physical Exam Neuro: DENNIS COMA SCALE: document GCS findings [place] coma scale total score: 15 Course Vital Signs: Vital signs: Vital Signs Temperature 98.2 F 05/05/22 09:43 Pulse Rate 89 05/05/22 11:03 Respiratory Rate 16 05/05/22 11:03 Blood Pressure 116/71 05/05/22 11:03 Pulse Oximetry 98 05/05/22 11:03 Oxygen Delivery Me thod 05/05/22 11:03 [facility] - General Adult Medical Decision Making Case discussed with Dr. Clement who recommends CTA imaging. This was negative. They did see liver mass that patient is aware of and according to him has an upcoming hepatic lobe resection scheduled at [facility]. Patient has no swelling or pain to his R UE thus subclavian DVT thought to be unlikely. He has no redness, swelling, drainage, or evidence for infection. Vitals and white count are normal. Recommend he follow up with oncology team at [facility] or Dr. Estrada here if pain persists. Return to ED precautions given. Chart reviewed and patient discussed with midlevel. Agree with assessment and plan. Medical Records I reviewed the patient's medical records. Lab Data I reviewed the patient's lab results. : 05/05/22 10:20 05/05/22 10:20 Radiology Impressions Chest CTA 05/05/22 10:02
--- NOTE | 2022-05-05 10:02 | CTR_ITS ---
PROCEDURE INFORMATION: Exam: CTA Chest With Contrast Exam date and time: 05/05/2022 10:32 AM Age: 46 years old Clinical indication: Pain; Right-sided; Prior surgery; Surgery type: Port; Additional info: Pain to subcutaneous port/neck TECHNIQUE: Imaging protocol: Computed tomographic angiography of the chest with contrast. 3D rendering (Not supervised by radiologist): MIP and/or 3D reconstructed images were created by the technologist. Radiation optimization: All CT scans at this facility use at least one of these dose optimization techniques: automated exposure control; mA and/or kV adjustment per patient size (includes targeted exams where dose is matched to clinical indication); or iterative reconstruction. Contrast material: OMNI 350; Contrast volume: 92 ml; Contrast route: INTRAVENOUS (IV); COMPARISON: CT chest abd pel w con* 02/15/2022 1:53 PM RADIATION DOSE METRICS: Total DLP (mGy-cm): 424.13 FINDINGS: Tubes, catheters and devices: Right-sided Port-A-Cath terminates in the mid SVC. Pulmonary arteries: No central or lobar pulmonary emboli. Evaluation for more distal pulmonary emboli is limited by suboptimal contrast bolus timing. Aorta: Unremarkable. No aortic aneurysm. No aortic dissection. Lungs: Similar 6 mm right upper lobe pulmonary nodule. Similar 8 mm right lower lobe pulmonary nodule. No focal airspace consolidation. Pleural spaces: Unremarkable. No pneumothorax. No pleural effusion. Heart: Unremarkable. No cardiomegaly. No pericardial effusion. Lymph nodes: Unremarkable. No enlarged lymph nodes. Liver: Wedge-shaped area of low-density in the right hepatic lobe, incompletely assessed. Bones/joints: Unremarkable. No acute fracture. Soft tissues: Unremarkable. CT/CT angio chest PE protcl [id number] IMPRESSION: 1. No central or lobar pulmonary emboli. Evaluation for more distal pulmonary emboli is limited by suboptimal contrast bolus timing. 2. Similar right lung pulmonary nodules. 3. A large wedge-shaped area of low-density is seen in the right hepatic lobe, incompletely assessed. Consider dedicated abdominal imaging for evaluation of the known hepatic metastases as clinically warranted.
[2022-05-05 10:31] LABS: Basophils % 0.2 %; Eosinophils # 0.2 10^3/uL (0.0-0.8); Eosinophils % 4.7 %; Hematocrit 42.1 % (42.0-52.0); Hemoglobin 14.1 g/dL (11.7-16.6); Lymphocytes # 0.5 10^3/uL (0.8-4.8); Lymphocytes % 12.4 %; Mean Corpuscular HGB Conc 33.5 g/dL (30.0-36.0); Mean Corpuscular Hemoglobin 27.7 pg (28.0-34.0); Mean Corpuscular Volume 82.7 fl (80-94); Mean Platelet Volume 9.4 fL (7.4-10.4); Monocytes # 0.2 10^3/uL (0.2-0.9); Monocytes % 5.6 %; Neutrophils # 3.29 10^3/uL (1.8-7.7); Neutrophils % 76.9 %; Nucleated Red Blood Cells % 0 %; Platelet Count 135 10^3/cmm (130-400); Red Blood Count 5.09 10^6/uL (4.1-5.3); Red Cell Distribution Width 12.2 % (12.1-15.1); White Blood Count 4.3 10^3/uL (4.0-10.0)
[2022-05-05] MEDS: iohexol 350 mg/mL 100 mL Btl IV (10:45)
[2022-05-05 10:54] LABS: Alanine Aminotransferase 35 U/L (0-41); Albumin Level 4.1 g/dL (3.5-5.2); Alkaline Phosphatase 196 IU/L (40-130); Aspartate Amino Transferase 35 U/L (0-40); Blood Urea Nitrogen 13 mg/dL (6-20); Calcium 9.5 mg/dL (8.5-10.5); Carbon Dioxide 27 mmol/L (22-29); Chloride 103 mmol/L (98-107); Glomerular Filtration Rate 80.4 mL/min (90-130); Glucose 124 mg/dL (65-115); Osmolality Calculated 292 mOsm/kg (285-295); Sodium 140 mmol/L (136-145); Total Protein 7.1 g/dL (6.6-8.7)
[2022-05-05 11:03] VITALS: BP 116/71; PULSE 89; RESP 16; O2SAT 98
== END 2022-05-05 11:46 | disposition home or self-care (01) ==
PROVIDERS: Emergency Provider Physician Assistant; PCP Internal Medicine
DX: T82.848A Pain due to vascular prosthetic devices, implants and grafts, initial encounter (principal); Z85.048 Personal history of other malignant neoplasm of rectum, rectosigmoid junction, and anus; Z85.05 Personal history of malignant neoplasm of liver
CPT/HCPCS: 71275; 80053; 85025; 99284; Q9967

== ENCOUNTER 2022-05-11 08:16 | Outpatient (CLI) | payer BC, SELFPAY ==
[2022-05-12 18:08] LABS: Quest SARS-CoV-2 RNA NOT DETECTED (NOT DETECTED)
== END 2022-05-11 08:17 | disposition home or self-care (01) ==
PROVIDERS: PCP Internal Medicine; Visit Provider Surgery Surgical Oncology
DX: C78.7 Secondary malignant neoplasm of liver and intrahepatic bile duct (principal); C20 Malignant neoplasm of rectum
CPT/HCPCS: 87635

== ENCOUNTER 2022-06-14 16:35 | Outpatient (CLI) | payer BC, SELFPAY ==
[2022-06-14 17:24] LABS: Basophils % 0.7 %; Eosinophils # 0.2 10^3/uL (0.0-0.8); Eosinophils % 2.9 %; Hematocrit 40.2 % (42.0-52.0); Hemoglobin 12.6 g/dL (11.7-16.6); Lymphocytes # 0.8 10^3/uL (0.8-4.8); Lymphocytes % 13.9 %; Mean Corpuscular HGB Conc 31.3 g/dL (30.0-36.0); Mean Corpuscular Hemoglobin 25.9 pg (28.0-34.0); Mean Corpuscular Volume 82.5 fl (80-94); Mean Platelet Volume 8.9 fL (7.4-10.4); Monocytes # 0.5 10^3/uL (0.2-0.9); Monocytes % 7.6 %; Neutrophils # 4.41 10^3/uL (1.8-7.7); Neutrophils % 74.6 %; Nucleated Red Blood Cells % 0 %; Platelet Count 341 10^3/cmm (130-400); Red Blood Count 4.87 10^6/uL (4.1-5.3); Red Cell Distribution Width 13.1 % (12.1-15.1); White Blood Count 5.9 10^3/uL (4.0-10.0)
[2022-06-14 17:47] LABS: Alanine Aminotransferase 27 U/L (0-41); Alkaline Phosphatase 366 U/L (40-130); Anion Gap 13.2 (5-19); Aspartate Amino Transferase 28 U/L (0-40); Blood Urea Nitrogen 15 mg/dL (6-20); Calcium 9.4 mg/dL (8.5-10.5); Carbon Dioxide 31 mmol/L (22-29); Chloride 100 mmol/L (98-107); Globulin 3.5 g/dL (1.3-4.6); Glomerular Filtration Rate 80.1 mL/min (90-130); Glucose 102 mg/dL (65-115); Magnesium 2.1 mg/dL (1.7-2.3); Osmolality Calculated 291 mOsm/kg (285-295); Phosphorus 3.1 mg/dL (2.5-4.5); Potassium 4.2 mmol/L (3.5-5.1); Sodium 140 mmol/L (136-145); Total Bilirubin 0.7 mg/dL (0.15-1.2); Total Protein 7.5 g/dL (6.6-8.7)
== END 2022-06-14 16:36 | disposition home or self-care (01) ==
PROVIDERS: PCP Internal Medicine; Visit Provider Surgery Surgical Oncology
DX: C18.9 Malignant neoplasm of colon, unspecified (principal); C78.7 Secondary malignant neoplasm of liver and intrahepatic bile duct; Z79.899 Other long term (current) drug therapy
CPT/HCPCS: 36415; 80053; 83735; 84100; 85025

== ENCOUNTER 2022-06-15 11:29 | Outpatient (CLI) | payer BC, SELFPAY ==
--- NOTE | 2022-06-15 11:40 | XRR_ITS ---
PROCEDURE INFORMATION: Exam: XR Chest Exam date and time: 06/15/2022 11:52 AM Age: 47 years old Clinical indication: Shortness of breath; Prior surgery; Patient HX: HX of liver and rectal cancer; Additional info: Short of breath w/exertion TECHNIQUE: Imaging protocol: Radiologic exam of the chest. Views: 2 views. COMPARISON: CT chest abd pel w con* 02/15/2022 1:53 PM FINDINGS: Tubes, catheters and devices: Right IJ approach MediPort is in satisfactory position, with distal tip in the SVC, approximately 5 cm above the SVC/RA junction. Lungs: Streaky bibasilar atelectasis. No consolidation. Pleural spaces: Unremarkable. No pleural effusion. No pneumothorax. Heart/Mediastinum: Unremarkable. No cardiomegaly. Bones/joints: Unremarkable. XR/XR chest 2V* [id number] IMPRESSION: No evidence of active cardiopulmonary disease.
== END 2022-06-15 11:30 | disposition home or self-care (01) ==
PROVIDERS: PCP Internal Medicine; Visit Provider Surgery Surgical Oncology
DX: R06.02 Shortness of breath (principal)
CPT/HCPCS: 71046

== ENCOUNTER 2022-06-22 08:49 | Oncology outpatient (recurring) (ONCR) | payer BC, SELFPAY ==
[2022-06-22 10:12] LABS: Basophils % 0.2 %; Eosinophils % 0.1 %; Hematocrit 37.8 % (42.0-52.0); Hemoglobin 12.4 g/dL (11.7-16.6); Lymphocytes # 0.6 10^3/uL (0.8-4.8); Lymphocytes % 4.1 %; Mean Corpuscular HGB Conc 32.8 g/dL (30.0-36.0); Mean Corpuscular Hemoglobin 26.4 pg (28.0-34.0); Mean Corpuscular Volume 80.6 fl (80-94); Mean Platelet Volume 9.9 fL (7.4-10.4); Monocytes # 0.9 10^3/uL (0.2-0.9); Monocytes % 5.7 %; Neutrophils # 13.42 10^3/uL (1.8-7.7); Neutrophils % 89.4 %; Nucleated Red Blood Cells % 0 %; Platelet Count 196 10^3/cmm (130-400); Red Blood Count 4.69 10^6/uL (4.1-5.3); Red Cell Distribution Width 13.2 % (12.1-15.1)
[2022-06-22 10:34] LABS: Alanine Aminotransferase 29 U/L (0-41); Albumin Level 3.8 g/dL (3.5-5.2); Alkaline Phosphatase 311 U/L (40-130); Anion Gap 12.4 (5-19); Aspartate Amino Transferase 28 U/L (0-40); Blood Urea Nitrogen 16 mg/dL (6-20); Calcium 9.1 mg/dL (8.5-10.5); Carbon Dioxide 26 mmol/L (22-29); Chloride 99 mmol/L (98-107); Globulin 3.3 g/dL (1.3-4.6); Glomerular Filtration Rate 90.4 mL/min (90-130); Glucose 111 mg/dL (65-115); Iron 15 ug/dL (59-158); Osmolality Calculated 278 mOsm/kg (285-295); Percent Saturation 5.5 % (20-50); Potassium 4.4 mmol/L (3.5-5.1); Sodium 133 mmol/L (136-145); Total Bilirubin 1.2 mg/dL (0.15-1.2); Total Iron Binding Capacity 272 mcg/dl; Total Protein 7.1 g/dL (6.6-8.7); Unsaturated Iron Binding 257 ug/dL (112-347)
[2022-06-22 11:04] LABS: Carcinoembryonic Antigen 1.7 ng/mL (0.0-4.7)
== END 2022-06-29 23:59 | disposition home or self-care (01) ==
PROVIDERS: PCP Internal Medicine; Referring Provider Colon & Rectal Surgery; Visit Provider Internal Medicine Medical Oncology
DX: C20 Malignant neoplasm of rectum (principal)
CPT/HCPCS: 36591; 80053; 82378; 83540; 83550; 85025

== ENCOUNTER 2022-07-19 16:11 | Oncology outpatient (recurring) (ONCR) | payer BC, SELFPAY ==
[2022-07-19 17:10] LABS: Basophils % 0.2 %; Eosinophils % 0.7 %; Hematocrit 34.7 % (42.0-52.0); Lymphocytes # 0.9 10^3/uL (0.8-4.8); Lymphocytes % 16.9 %; Mean Corpuscular HGB Conc 31.7 g/dL (30.0-36.0); Mean Corpuscular Hemoglobin 24.2 pg (28.0-34.0); Mean Corpuscular Volume 76.3 fl (80-94); Monocytes # 0.5 10^3/uL (0.2-0.9); Neutrophils # 4.04 10^3/uL (1.8-7.7); Neutrophils % 72.8 %; Nucleated Red Blood Cells % 0 %; Platelet Count 252 10^3/cmm (130-400); Red Blood Count 4.55 10^6/uL (4.1-5.3); Red Cell Distribution Width 13.4 % (12.1-15.1); White Blood Count 5.6 10^3/uL (4.0-10.0)
[2022-07-19 17:25] LABS: Ammonia 27 umol/L (16-60)
[2022-07-19 17:58] LABS: Alanine Aminotransferase 21 U/L (0-41); Albumin Level 3.3 g/dL (3.5-5.2); Alkaline Phosphatase 255 U/L (40-130); Anion Gap 12.7 (5-19); Aspartate Amino Transferase 22 U/L (0-40); Blood Urea Nitrogen 12 mg/dL (6-20); Calcium 8.9 mg/dL (8.5-10.5); Carbon Dioxide 28 mmol/L (22-29); Chloride 98 mmol/L (98-107); Globulin 3.9 g/dL (1.3-4.6); Glomerular Filtration Rate 90.4 mL/min (90-130); Glucose 113 mg/dL (65-115); Iron 17 ug/dL (59-158); Osmolality Calculated 281 mOsm/kg (285-295); Percent Saturation 7.5 % (20-50); Potassium 3.7 mmol/L (3.5-5.1); Sodium 135 mmol/L (136-145); Thyroid Stimulating Hormone 0.81 uIU/mL (0.27-4.20); Total Bilirubin 0.5 mg/dL (0.15-1.2); Total Iron Binding Capacity 224 mcg/dl; Total Protein 7.2 g/dL (6.6-8.7); Unsaturated Iron Binding 207 ug/dL (112-347); Vitamin B12 335 pg/mL (232-1245)
[2022-07-19 22:15] LABS: Carcinoembryonic Antigen 1.5 ng/mL (0.0-4.7)
== END 2022-07-30 23:59 | disposition home or self-care (01) ==
PROVIDERS: PCP Internal Medicine; Referring Provider Colon & Rectal Surgery; Visit Provider Internal Medicine Medical Oncology
DX: C20 Malignant neoplasm of rectum; C78.7 Secondary malignant neoplasm of liver and intrahepatic bile duct; R18.8 Other ascites; R53.1 Weakness; R53.83 Other fatigue; R40.0 Somnolence; Z79.899 Other long term (current) drug therapy; Z92.21 Personal history of antineoplastic chemotherapy
CPT/HCPCS: 80053; 82140; 82378; 82607; 83540; 83550; 84443; 85025; 96523

== ENCOUNTER 2022-08-21 12:00 | Oncology outpatient (recurring) (ONCR) | payer BC, SELFPAY ==
[2022-08-14 10:18] VITALS: BP 101/66; PULSE 102; RESP 16; TEMP 36.7; O2SAT 99
[2022-08-14] MEDS: ferric carboxy (IVPB) 750 MG in sodium chloride 0.9% (100 ml) 100 ML 345 MG IV (10:39)
[2022-08-14] MEDS: sodium chloride 0.9% (100 ml) 100 ML 75 ML (10:39)
[2022-08-14 11:25] VITALS: BP 91/55; PULSE 100; RESP 16; TEMP 36.6; O2SAT 96
[2022-08-21 10:00] LABS: Basophils % 0.1 %; Eosinophils % 0.1 %; Hematocrit 32.8 % (42.0-52.0); Hemoglobin 10.5 g/dL (11.7-16.6); Lymphocytes # 0.6 10^3/uL (0.8-4.8); Lymphocytes % 4.6 %; Mean Corpuscular Hemoglobin 23.5 pg (28.0-34.0); Mean Corpuscular Volume 73.4 fl (80-94); Mean Platelet Volume 9.7 fL (7.4-10.4); Monocytes # 0.9 10^3/uL (0.2-0.9); Monocytes % 6.7 %; Neutrophils # 12.01 10^3/uL (1.8-7.7); Neutrophils % 87.3 %; Nucleated Red Blood Cells % 0 %; Platelet Count 448 10^3/cmm (130-400); Red Blood Count 4.47 10^6/uL (4.1-5.3); Red Cell Distribution Width 21.3 % (12.1-15.1); White Blood Count 13.8 10^3/uL (4.0-10.0)
[2022-08-21 10:23] LABS: Alanine Aminotransferase 57 U/L (0-41); Albumin Level 2.4 g/dL (3.5-5.2); Alkaline Phosphatase 742 U/L (40-130); Anion Gap 15.9 (5-19); Aspartate Amino Transferase 157 U/L (0-40); Blood Urea Nitrogen 17 mg/dL (6-20); Calcium 8.7 mg/dL (8.5-10.5); Carbon Dioxide 25 mmol/L (22-29); Chloride 94 mmol/L (98-107); Glomerular Filtration Rate 144.4 mL/min (90-130); Glucose 81 mg/dL (65-115); Osmolality Calculated 273 mOsm/kg (285-295); Potassium 3.9 mmol/L (3.5-5.1); Sodium 131 mmol/L (136-145); Total Protein 6.4 g/dL (6.6-8.7)
[2022-08-21 10:26] LABS: Total Bilirubin 9.6 mg/dL (0.15-1.2)
[2022-08-21 11:16] LABS: INR 1.44 (0.8-1.2)
--- NOTE | 2022-08-21 12:00 | CT_ITS ---
WS: [id number] CT ABDOMEN AND PELVIS WITH CONTRAST HISTORY: malignant ascites, colon cancer, jaundice TECHNIQUE: Imaging performed of the abdomen and pelvis with IV contrast. Single phase imaging of the abdomen. Coronal and sagittal reformats are submitted. All CT scans at [facility] use at [address] one of these dose optimization techniques: automated exposure control; mA and/or kV adjustment per patient size (includes targeted exams where dose is matched to clinical indication); or iterative re construction. IV CONTRAST: Omnipaque 350; 95 mL IV. Oral contrast: Yes. DLP: 1276.18 mGy.cm COMPARISON: PET CT 04/07/[address] abdomen and pelvis 02/15/2022 Lower thorax: Numerous pulmonary nodules at the lung bases. The largest nodule measures 13 mm at the medial RIGHT lung base. Heart is normal size. There is a new small pericardial effusion. Metastatic l ymph node measures 2.0 cm in the anterior pericardial fat. No hiatal hernia. Liver/biliary system: RIGHT hepatic lobe resection since the prior study. The LEFT lobe of the liver is enlarged and contains numerous low-attenuation masses. The largest mass in the LEFT lobe measures 5.2 x 4.8 cm. There is extensive metastatic involvement. No definite bile duct dilatation. No definit e portal vein thrombosis. Gallbladder: Surgically removed. Pancreas: Atrophy. Spleen: Normal size spleen. No mass or infarct. Adrenal glands: Normal. Right kidney: Normal. Left kidney: Too small to characterize hypodensity in the posterior mid kidney. No obstruction or so lid mass. Aorta: Normal. Lymphadenopathy: No definite lymph nodes are identified. Free fluid: There is a moderate amount of ascites are all 4 quadrants. The largest collection in the RIGHT lower quadrant. GI tract: Stomach is distended with oral contrast and displaced posteriorly by the enlarged liver. No small bowel obstruction. No colon obstruction. There is marked presacral soft tissue thickening surr ounding the rectum adjacent to the surgical anastomotic sutures. Similar to the prior CT. Noted to be mildly positive on the PET/CT and thought to be post inflammatory. There is mild omental thickening which could be due to infiltration by the ascites or omental carcino matosis. Abdominal wall: Unremarkable abdominal wall. No hernia. Pelvis: Free fluid extends into the pelvis. Urinary bladder is minimally distended. Inguinal canals c ontaining fat only. There is mild soft tissue anasarca. Bones: No change in the sclerotic focus in the RIGHT ilium. CT/CT abdomen pelvis w con* [id number] IMPRESSION: 1. Status post RIGHT hepatic lobe resection since the prior study. 2. The LEFT lobe of the liver is markedly enlarged with innumerable metastatic lesions. 3. Moderate amount of ascites and soft tissue anasarca has developed. 4. Small pericardial effusion. 5. Numerous metastatic pulmonary nodules at the lung bases. 6. Mild omental nodularity may be due to ascites or carcinomatosis. 7. Marked presacral soft tissue thickening at the anastomotic suture site but stable. Discussed with Dr. Estrada.
[2022-08-21] MEDS: iohexol 350 mg/mL 100 mL Btl PO (12:25)
[2022-08-21] MEDS: iohexol 350 mg/mL 100 mL Btl IV (13:42)
== END 2022-08-29 23:59 | disposition home or self-care (01) ==
LOC: RAD 12:11 → ONCMED 08-29 07:36
PROVIDERS: PCP Internal Medicine; Referring Provider Colon & Rectal Surgery; Visit Provider Internal Medicine Medical Oncology
DX: C20 Malignant neoplasm of rectum (principal); R18.0 Malignant ascites; R53.83 Other fatigue; C78.7 Secondary malignant neoplasm of liver and intrahepatic bile duct; R17 Unspecified jaundice
CPT/HCPCS: 36591; 74177; 80053; 85025; 85610; 96365; J1439; Q9967

== ENCOUNTER 2022-08-22 13:13 | Day surgery (SDC) | payer BC, SELFPAY ==
[2022-08-21 14:02] VITALS: BMI 23.7
--- NOTE | 2022-08-22 | US_ITS ---
WS: [id number] ULTRASOUND-GUIDED PARACENTESIS CLINICAL INFORMATION: abdominal distension COMPARISON: None. Procedure Informed consent: The risks, benefits, and alternatives of the procedure were discussed with the asiya ent. Verbal and written consent was obtained. Timeout: A timeout was performed to confirm the correct patient, procedure, and site. Preparation: A suitable skin site was identified. The patient was prepped and draped in usual sterile fashion. Lidocaine 1% was used for local anesthesia. Catheter: 4 Swiss One-step Yueh catheter. Side: RIGHT Lower quadrant. Fluid Volume: 2400 ml Color: Clear yellow DISPOSITION: Discarded safely. Complications: None. Patient disposition: Discharged from the department in stable condition. US/US paracentesis abd w [id number] IMPRESSION: Uncomplicated ultrasound-guided paracentesis. Removal of 2400 cc
[2022-08-22 13:29] VITALS: BP 105/66; PULSE 121; RESP 18; TEMP 36.5; O2SAT 97
[2022-08-22 14:37] VITALS: BP 114/76; PULSE 122; RESP 17; O2SAT 97
[2022-08-22 14:51] VITALS: BP 114/71; PULSE 124; RESP 17; O2SAT 95
--- NOTE | 2022-08-22 14:53 | SUR.PREOP ---
1430 pt c/o abdominal pain during duration of procedure. pt now having nausea. suction turned to off at this time. Dr. Morgan called. per dr. morgan pt can stop now or continue and drain 3L. pt is choosing to stop procedure. procedure stopped at this time. pt vitals stable (see vitals). pressure dressing applied to right lower abdomen puncture sight. pt stayed in department, reports he is starting to feel better, continues to have some abdominal pressure.
== END 2022-08-22 14:53 | disposition home or self-care (01) ==
LOC: GILAB 13:16
PROVIDERS: Radiology Neuroradiology; PCP Internal Medicine; Visit Provider Internal Medicine Medical Oncology
PROC: (CPT 49082; principal; 2022-08-22 14:00)
DX: R14.0 Abdominal distension (gaseous) (principal)
CPT/HCPCS: 49083